=== PATIENT | female | born 1970 | race Caucasian/White ===

== ENCOUNTER 2024-09-01 08:16 | Outpatient (REF) | payer OTHER, SELFPAY ==
--- NOTE | ~2024-09-01 | XR_ITS ---
EXAMINATION: XR HAND 3 OR MORE VIEWS RIGHT HISTORY: M79.641 - Pain in right hand COMPARISON: There are no prior studies available for comparison. FINDINGS: Three views of the right hand are submitted. Osseous mineralization is normal. There is no fracture or dislocation. The joint spaces are preserved. The soft tissues are unremarkable. XR/XR hand RT min 3V IMPRESSION: Unremarkable examination of the right hand. Electronically signed by: Jai Miller MD 09/06/2024 10:39 AM MACIEL
--- OUTSIDE RECORDS SUMMARY | 2024-09-04 08:33 | XMS_ITS ---
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 referral Medications Medication SIG (Take, Route, Fr equency, Duration) Notes Start Date End Date Status Premarin 0.625 MG/GM 1 applicatorful Vag inal Once a day x 2 weeks, then twice weekly thereafter for 30 days 06/13/2024 Ac tive Social History Sex Assigned At : Social History Observation Description Sex Assigned At Female Encounters Encounter Location Date Provider Diagnosis [address] [place], [place] [phone] 05/29/2024 KIM GABAI Plan Of Treatment Medication Medication Name Sig Start Date Stop Date Notes Premarin 0.625 MG/GM 1 applicatorful Vag inal Once a day x 2 weeks, then twice weekly thereafter for 30 days 06/13/2024 Progress Notes * ENCISOEdenilsonOB:1970 ([age] yo F)Acc No.[id number]:05/29/2024 Patient:?Dottie ENCISO :1970???Age:53 Y???Sex:Female Address:[address] [place] [address], [address] * Refills? Start Premarin Cream, 0.625 MG/GM, Vaginal, 1, 1 applicatorful, Once a day x 2 weeks, then twice weekly thereafter, 30 days, Refills=2 Subjective: * Chief Complaints: * ???Lab results and TOOL DESIGN CHECKER refer ral * Medical History:? * Surgical History:? * Hospitalization/Major Diagno stic Procedure:? * Medications:? * Allergies:?treesLanolinno[Alfredo jauregui Verified] Objective: * Vitals:? * Physical Examination:? Assessment: Plan: * Treatment: * Procedure Codes:? * true * Date:? Generated for Yoli yadav/Max/eTransmitting on:?09/04/2024 08:33 AM EST
--- OUTSIDE RECORDS SUMMARY | 2024-09-04 08:33 | XMS_ITS ---
Author Organization [facility] Address [address] [place] [phone] Care Team Providers Care Realty Loan Specialist Name Role Phone KIM VELASQUEZ [phone] Allergies Allergen (clinical drug ingredient) Drug/Non Drug [...] Female Encounters Encounter Location Date Provider Diagnosis [address] [place], [place] [phone] 04/28/2024 KIMSA VELASQUEZ Plan Of Treatment Medication [...] * Edenilson ENCISOOB:1970 ([age] yo F)Acc No.[id number]:04/28/2024 Patient:?ENCISOAdan :1970???Age:53 Y???Sex:Female Address:[address] [place] [address] [place], [address] * Refills? Start Mometasone Furoate Ointment, 0.1 [...] true * Date:? Generated for Yoli yadav/Max/Larry on:?09/04/2024 08:33 AM EST
--- OUTSIDE RECORDS SUMMARY | 2024-09-04 08:33 | XMS_ITS ---
Author Organization [facility] Address [address] [phone] Care Team Providers Care Sales Closer Name Role Phone SARITA MARRERO Unavailable [phone] Allergies Allergen (clinical drug ingredient) Drug/Non Drug Allergy documented on EMR Reaction Allergy Type Onset Date Status trees (uncoded) Unknown Allergy Acti ve Lanolin Unknown Drug Allergy Active Results Component Value Reference Range Notes Urinalysis Reviewed date:05/29/2024 02:05:17 PM Interpretation:Normal Performing Lab: Notes/Report: Normal Leukocytes - Nitrates - Uro - Protein - pH 7.0 Blood - Spec [place] 1.010 Ketones - Bilirubin - Glucose - Wet Mount Reviewed date:05/29/2024 11:43:54 AM Interpretation:Normal Performing Lab: Notes/Report: Normal Clue Cells neg WBC neg Hyphae neg Trichomonas neg pH 5.5 JERSON Prep neg whiff Urine Culture, Routine-[id number] Reviewed date:05/31/2024 08:58:52 AM Interpretation:Negative Performing Lab:[facility], [address], [address], [place], Phone - [phone], Director - [facility] Notes/Report: Urine Culture, Routine Final report Result 1 No growth Hernan 6 Species Profile, N [id number] Reviewed date:06/05/2024 07:32:53 PM Interpretation:Negative Performing Lab:[facility], [address] [facility], [place], Phone - [phone], Director - [place]fa Notes/Report: Test(s) 304791-Sbfajva albicans, REVA; 907767-Kojbxef glabrata, REVA; 784472-H parapsilosis/tropicalis; 857864-Ocpcptn lusitaniae, REVA; 450786-Xrhgqdw krusei, REVA was developed and its performance characteristics determined by [facility]. It has not been cleared or approved by the Food and Drug Administration. Hernan albicans, REVA Negative Negative Hernan glabrata, REVA Negative Negative C parapsilosis/tropicalis Negative Negative Th is assay does not differentiate C. tropicalis and C. parapsilosis. Hernan lusitaniae, REVA Negative Negative Hernan krusei, REVA Negative Negative M genitalium REVA, Swab- 6 Reviewed date:05/31/2024 12:43:52 PM Interpretation:Negative Performing Lab:[facility] [place], [address] [place] [address] Avenue, [place], Phone - [phone], Director - [place] Notes/Report: Mycoplasma genitalium REVA [...] Status Risk Notes Problem Atrophy of vulva (458867933) Atrophy of vulva (N90.5) Active confirmed Encounters Encounter Location Date Provider Diagnosis [facility] [address] [place] [address] [place], [place] [phone] 05/29/2024 SARITA GABAI Urinary frequency R35.0 ; [...] but will strongly advise follow up with [facility] for further eval and management. Referral written, [...] relief until further eval can occur with [facility]WER MACHINE Need 2 out of 3 Sections from [...] but will strongly advise follow up with [facility] for further eval and management. Referral written, appt to be scheduled. Will call clt with results either way and discuss plan of care Atrophy of vulva Clt to continue with vagifem, can consider switching to topical cream instead. Awaiting lab results prior to changing dose. Encouraged clt to use vaginal lidocaine ointment for pain relief until further eval can occur with [facility] Progress Notes * Ada ENCISOCarolineOB:1970 ([age] yo F)Acc No.[id number]:05/29/2024 Progress Notes Patient:?Dottie ENCISO Provider:?Sarita Marrero NP :1970???Age:53 Y???Sex:Female D ate:05/29/2024 Address:[address] [place], [place] [id number] Subjective: * Chief Complaints: * ???Follow-upRecheck Exam [...] urination.?Denies?Painful urination.?Skin:?Denies?Itching.?Denies?Rash.?Denies?Skin lesion(s).? * Medical History:? 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 control:?Mirena intrauterine device.?Last mammogram date:?Sep 2018 at [facility], Appt scheduled: 10/15/17, 04/2015- BIRADS 2.?Last menstrual period:?02/20.?Last pap smear date:?02/2024- NIL/HPV positive (neg 16/18). Repeat cotest in 1 year02/09/19- NIL/HPV suskcrdx13/23/16- NIL/2012- NIL9/- NIL9/2008- NIL9/2007- NIL.?Menarche: ?Age of [...] but will strongly advise follow up with [facility] for further eval and management. Referral written, appt to be scheduled. Will call clt with results either way and discuss plan of care??2.?Urinary frequency?LAB: Urine Culture, Routine-[id number] (Collection Date & Time - 05/29/2024 11:33 AM) ?LAB: Urinalysis (Collection Date & Time - 05/29/2024)?Normal* ? Value Reference Range ?Leukocytes - * ?Nitrates - * ?Uro - * ?Protein - * ?pH 7.0 * ?Blood - * ?Spec [place] 1.010 * ?Ketones - * ?Bilirubin - [...] relief until further eval can occur with [facility]?? * Procedure Codes:?78945 Wet M [id number] Urine Dipstick * Billing Information: * Visit Code:? 46388 Existing - Low Complexity (IN USE). * Procedure Codes:? [address]95[address] [place]. [address] Urine Dipstick. * Sign off status: Completed true * Provider:?Sarita Marrero NP Date:? 024 Generated for [facility] vicenta/Max/Macoransmitting on:?09/04/2024 08:33 AM EST History and Physical Notes * [...]
--- OUTSIDE RECORDS SUMMARY | 2024-09-04 08:34 | XMS_ITS | Patient Health Record ---
Author Organization [facility] Address [address] [phone] Care Team Providers Care Whiting Can Worker Name Role Phone KIM VELASQUEZ Unavailable [phone] Allergies Allergen (clinical drug ingredient) Drug/Non Drug Allergy documented on EMR Reaction Allergy Type Onset Date Status trees (uncoded) Unknown Allergy Acti ve Lanolin Unknown Drug Allergy Active Results Component Value Reference Range Notes Urinalysis Reviewed date:05/29/2024 02:05:17 PM Interpretation:Normal Performing Lab: Notes/Report: Normal Leukocytes - Nitrates - Uro - Protein - pH 7.0 Blood - Spec Jewett 1.010 Ketones - Bilirubin - Glucose - Wet Mount Reviewed date:05/29/2024 11:43:54 AM Interpretation:Normal Performing Lab: Notes/Report: Normal Clue Cells neg WBC neg Hyphae neg Trichomonas neg pH 5.5 JERSON Prep neg whiff Urine Culture, Routine-[id number] Reviewed date:05/31/2024 08:58:52 AM Interpretation:Negative Performing Lab:[facility] [place], [address], [address], [place], Phone - [phone], Director - [facility] Notes/Report: Urine Culture, Routine Final report Result 1 No growth Hernan 6 Species Profile, N [id number] Reviewed date:06/05/2024 07:32:53 PM Interpretation:Negative Performing Lab:[facility] [place], [address] [facility], [place], Phone - [phone], Director - [place] Notes/Report: Test(s) 352022-Lahagaz albicans, REVA; 068634-Nkkutfo glabrata, REVA; 214406-F parapsilosis/tropicalis; 828092-Ylyklcg lusitaniae, REVA; 031202-Pmciewa krusei, REVA was developed and its performance characteristics determined by [employer]. It has not been cleared or approved by the Food and Drug Administration. Hernan albicans, REVA Negative Negative Hernan glabrata, REVA Negative Negative C parapsilosis/tropicalis Negative Negative Th is assay does not differentiate C. tropicalis and C. parapsilosis. Hernan lusitaniae, REVA Negative Negative Hernan krusei, REVA Negative Negative M genitalium REVA, Swab-[id number] 6 Reviewed date:05/31/2024 12:43:52 PM Interpretation:Negative Performing Lab:[facility] [place], [address] [place] [address], Phone - [phone], Director - [facility] Notes/Report: Mycoplasma genitalium REVA Negative Negative PDF Report Reviewed date:03/21/2024 09:05:13 AM Interpretation: Performing Lab:[facility] [place], [address], [address], [place], Phone - [phone], Director - [facility] Notes/Report: Clinical Information:[id number] IGP, Apt HPV,rfx 16/18,45-19 9344 Reviewed date:03/27/2024 11:59:26 AM Interpretation:NIL/HPV positive Performing Lab:[facility] [place], [address], [address], [place], Phone - [phone], Director - [facility] Notes/Report: Clinical Information:[id number] Clinical Information:[id number] DIAGNOSIS: NEGATIVE FOR IN TRAEPITHELIAL LESION OR MALIGNANCY. Specimen adequacy: Satisfactory for evaluation. Endocervical and/or squamous metaplastic cells (endocervical component) are present. Clinician provided ICD10: Z01.419 Z11.51 Performed by: Tia doran, [employer] (ASCP) . . 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 Problem Menopausal symptom (90069363) Menopausal symptoms (N95.1) Active confirmed Vital Signs Blood pressure diastolic 76 mm Hg 03/15/2024 Height 64 in 03/15/2024 Blood pressure systolic 110 mm Hg 03/15/2024 Weight 136.8 lbs 03/15/2024 BMI 23.48 kg/m2 03/15/2024 Encounters Encounter Location Date Provider Diagnosis [facility] [address] [place] [id number] 03/15/2024 KIM GABAI Encounter for gynecological examination (general) (routine) without abnormal findings Z01.419 ; Atrophy of vulva N90.5 ; Encounter for screening for infections with a predominantly sexual mode of transmission Z11.3 ; Encounter for screening for human papillomavirus (HPV) Z11.51 ; Unspecified symptoms and signs involving the genitourinary system R39.9 and Menopausal symptoms N95.1 [facility] [address] [place] [address] [id number] 05/29/2024 KIM GABAI Urinary frequency R3 5.0 ; Encounter for screening for other infectious and parasitic diseases Z11.8 ; Unspecified symptoms and signs involving the genitourinary system R39.9 and Atrophy of vulva N90.[address] [id number] 03/16/2024 KIM GABAI [facility] [address] [place] [address] [id number] 03/21/2024 KIM GABAI [facility] [address] [place] [address] [id number] 04/06/2024 KIM GABAI [facility] [address] [place] [address] [id number] 04/28/2024 KIM GABAI [facility] [address] [place] [address] [id number] 05/29/2024 KIM GABAI Assessments Encounter Date Diagnosis [...] but will strongly advise follow up with ENTRY LEVEL SALES ASSOCIATE for further eval and management. Referral written, [...] STI screening recommendations and available testing through [facility]. Testing ordered as noted per patient risks [...] relief until further eval can occur with ENTRY LEVEL SALES ASSOCIATE Need 2 out of 3 Sections from [...] Insured Coverage Start Date Coverage End Date [facility] [employer] [address] [address] [place], [place] [id number] Dottie Enciso Self - patient is the insured Medical (General) History Medical History History ICD Code Migraines- Occipital neuralgia VVC Meningioma incidentally diagnosed on MRI , surgery and radiation 2020 Abnormal PAP 2023 Surgical History Surgery Date(Month/Year) nerve decompression for migraines
--- OUTSIDE RECORDS SUMMARY | 2024-09-04 08:34 | XMS_ITS | Patient Health Record ---
Author Organization [facility] Address [address] [place] [address] Care Team Providers Care Fly Raiser Lockstitch Name Role Phone Jimmy Malagon Primary Care Provider Rogelio Niño Unavailable Unavailable Reason For Referral [...] Coverage End Date [place] [address] [place] [id number] Dottie Enciso Self - patient is the insured Medical (General) History Surgical History Surgery Date(Month/Year) The patient has had no prior surgeries The patient has had no prior surgeries 2017-08-17
== END 2024-09-01 08:17 | disposition home or self-care (01) ==
LOC: HO.HOSX 08:16
DX: M79.641 Pain in right hand (principal)
CPT/HCPCS: 73130; 99202

== ENCOUNTER 2024-09-01 10:09 | Outpatient (AMB) | payer OTHER, SELFPAY ==
--- NOTE | 2024-09-01 10:21 | A.OFFVIS_ITS ---
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 Patient reports pain on both the volar and dorsal side of the right hand that has been on going for a couple of months. Pain radiates to wrist occasionally, at her worse she reports sharp/stabbing pains. Patient has tried and failed Tylenol and Ibuprofen. 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 Patient reports pain on both the volar and dorsal side of the right hand that has been on going for a couple of months. Patient states pain is exacerbated by gripping things such as a golf club. Patient reports that this pain is primarily at the center of the palm of the hand. Pain radiates to wrist occasionally, at her worse she reports sharp/stabbing pains. Patient has tried and failed Tylenol and Ibuprofen. Denies any numbness or tingling in the digits of the right hand. Denies any tenderness to palpation in this area the height hand, and states that this pain is ?random? No other acute complaints or concerns at this time. 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 Neuro: Normal sensation of the tips of all digits of the right hand at this time Vascular: Cap refill brisk Pain: No tenderness to palpation anywhere on the right wrist or hand No pain with range of motion of the right hand or wrist in the office today ROM: Patient is able to make closed fist and extend all digits of the right hand fully Patient has full flexion and extension of the right wrist Skin: No lacerations or abrasions. General: No ecchymosis, erythema, or evidence of infection. Psych: Appears grossly normal Affect normal Attitude cooperative Results Reviewed Results Reviewed: X-rays obtained in the office today and independently reviewed by me, Shahriar Hoyt PA-C, demonstrate no fracture or acute bony abnormality of the right hand or wrist. Assessment & Plan Assessment & Plan (1) Right hand pain: Code(s): M79.641 - Pain in right hand Category: Medical Plan 1. Right hand pain Ongoing for approximately 2 months At this time, patient was referred to occupational therapy for range of motion and strengthening of the right hand Patient was amenable to this plan Patient was advised that if approximately 6-8 weeks after starting occupational therapy she is still experiencing this discomfort in her right hand, she should call us for further evaluation and discussion of potential further imaging or other treatment options Patient understands this is amenable to this plan Patient will follow-up in 6-8 weeks if she is still symptomatic for further evaluation, sooner with any acute concerns Orders: Orders XR hand RT min 3V Today M79.641 - Pain in right hand OT Evaluation and Treatment Today M79.641 - Pain in right hand Coding Level of Care Code New Pt Level 3 (40191) Diagnoses Right hand pain M79.641
--- OUTSIDE RECORDS SUMMARY | 2024-09-01 11:26 | XMS_ITS ---
Author Organization [facility] Address [address] [id number] Care Team Providers Care Support Dba Name Role Phone SARITA MARRERO Unavailable [phone] Allergies Allergen (clinical drug ingredient) Drug/Non Drug Allergy documented on EMR Reaction Allergy Type Onset Date Status trees (uncoded) Unknown Allergy Acti ve Lanolin Unknown Drug Allergy Active Results Component Value Reference Range Notes Urinalysis Reviewed date:05/29/2024 02:05:17 PM Interpretation:Normal Performing Lab: Notes/Report: Normal Leukocytes - Nitrates - Uro - Protein - pH 7.0 Blood - Spec Craig 1.010 Ketones - Bilirubin - Glucose - Wet Mount Reviewed date:05/29/2024 11:43:54 AM Interpretation:Normal Performing Lab: Notes/Report: Normal Clue Cells neg WBC neg Hyphae neg Trichomonas neg pH 5.5 JERSON Prep neg whiff Urine Culture, Routine-[id number] 7 Reviewed date:05/31/2024 08:58:52 AM Interpretation:Negative Performing Lab:[facility], [address], [address], [place], Phone - [phone], Director - [facility] Notes/Report: Urine Culture, Routine Final report Result 1 No growth Hernan 6 Species Profile, N [id number] Reviewed date:06/05/2024 07:32:53 PM Interpretation:Negative Performing Lab:[facility], [address] [facility], [place], Phone - [phone], Director - Josefa Notes/Report: Test(s) 991795-Eoeazla albicans, REVA; 947106-Eizjxeg glabrata, REVA; 329213-K parapsilosis/tropicalis; 833236-Znucgtf lusitaniae, REVA; 216722-Bzvrukn krusei, REVA was developed and its performance characteristics determined by [facility]. It has not been cleared or approved by the Food and Drug Administration. Hernan albicans, REVA Negative Negative Hernan glabrata, REVA Negative Negative C parapsilosis/tropicalis Negative Negative Th is assay does not differentiate C. tropicalis and C. parapsilosis. Hernan lusitaniae, REVA Negative Negative Hernan krusei, REVA Negative Negative M genitalium REVA, Swab- 6 Reviewed date:05/31/2024 12:43:52 PM Interpretation:Negative Performing Lab:[facility] [place], [address] [place] [address] Avenue, [place], Phone - [phone], Director - Josefa Notes/Report: Mycoplasma genitalium REVA Negative Negative REASON FOR VISIT Follow-up, Recheck Exam Medications Medication SIG (Take, Route, Frequency, Duration) Notes Start Date End Date Status Mometasone Furoate 0.1 % 1 application to affected area once a night x 4 weeks, then every other night x 4 weeks, then twice a week x 4 weeks twice a day Externally as indicated for 90 days 04/28/2024 Active Betamethasone Dipropionate 0.05 % 1 application to affected area once a night x 4 weeks, then every other night x 4 weeks, then twice a week x 4 weeks Externally twice a day for 90 days 04/06/2024 Not-Taking Clobetasol Propionate 0.05 % 1 application to affected area Externally once a night x 4 weeks, then every other night x 4 weeks, then twice a week x 4 weeks for 90 days 03/29/2024 Not-Taking Vagifem 10 MCG 1 tablet Vaginal Insert one tablet intravaginally daily for 2 weeks, followed by twice weekly for 90 days 03/15/2024 Active Liletta (52 MG) 18.6 MCG/DAY as directed Intrauterine 08/24/2023 Active Mirena Inserted 09/01/16 Not-Taking Social History Sex Assigned At : Social History Observation Description Sex Assigned At Female Problems Problem Type SNOMED Code ICD Code Onset Dates Problem Status W/U Status Risk Notes Problem Atrophy of vulva (910058115) Atrophy of vulva (N90.5) Active confirmed Encounters Encounter Location Date Provider Diagnosis [facility] [address] [place] [address] [place], [place] [phone] 05/29/2024 SARITA GABAI Urinary frequency R35.0 ; Encounter for screening for other infectious and parasitic diseases Z11.8 ; Unspecified symptoms and signs involving the genitourinary system R39.9 and Atrophy of vulva N90.5 Assessments Encounter Date Diagnosis (ICD Code) Assessment Notes Treatment Notes Treatment Clinical Notes Section Notes 05/29/2024 Urinary frequency (ICD-10 - R35.0) Reassured clt of normal UA, but will send urine culture to further evaluate based on symptoms Need 2 out of 3 Sections from A-C Section A) Problems (only need one from below) One stable chronic illness Section B) Data (at least one of the following categories in this section) Category 1: (Choose 2 of the following): Review of prior external notes Order unique tests Review test results (each unique test counts as one) Category 2: Assessment requiring an independent historian Section C) Risk Document low risk of morbidity/mort ality 05/29/2024 Encounter for screening for other infectious and parasitic diseases (ICD-10 - Z11.8) Reviewed PE and wet mount findings. Discussed case with Jackie Lacy Md to finalize plan of care. Will wait on results of hernan and mycoplasma, but will strongly advise follow up with COMPRESSED YEAST SUPERVISOR for further eval and management. Referral written, appt to be scheduled. Will call clt with results either way and discuss plan of care Need 2 out of 3 Sections from A-C Section A) Problems (only need one from below) One stable chronic illness Section B) Data (at least one of the following categories in this section) Category 1: (Choose 2 of the following): Review of prior external notes Order unique tests Review test results (each unique test counts as one) Category 2: Assessment requiring an independent historian Section C) Risk Document low risk of morbidity/mort ality 05/29/2024 Unspecified symptoms and signs involving the genitourinary system (ICD-10 - R39.9) Need 2 out of 3 Sections from A-C Section A) Problems (only need one from below) One stable chronic illness Section B) Data (at least one of the following categories in this section) Category 1: (Choose 2 of the following): Review of prior external notes Order unique tests Review test results (each unique test counts as one) Category 2: Assessment requiring an independent historian Section C) Risk Document low risk of morbidity/mort ality 05/29/2024 Atrophy of vulva (ICD-10 - N90.5) Clt to continue with vagifem, can consider switching to topical cream instead. Awaiting lab results prior to changing dose. Encouraged clt to use vaginal lidocaine ointment for pain relief until further eval can occur with COMPRESSED YEAST SUPERVISOR Need 2 out of 3 Sections from A-C Section A) Problems (only need one from below) One stable chronic illness Section B) Data (at least one of the following categories in this section) Category 1: (Choose 2 of the following): Review of prior external notes Order unique tests Review test results (each unique test counts as one) Category 2: Assessment requiring an independent historian Section C) Risk Document low risk of morbidity/mort ality 05/29/2024 Other Need 2 out of 3 Sections from A-C Section A) Problems (only need one from below) One stable chronic illness Section B) Data (at least one of the following categories in this section) Category 1: (Choose 2 of the following): Review of prior external notes Order unique tests Review test results (each unique test counts as one) Category 2: Assessment requiring an independent historian Section C) Risk Document low risk of morbidity/mort ality Plan Of Treatment Treatment Notes Assessment Notes Urinary frequency Reassured clt of nor mal UA, but will send urine culture to further evaluate based on symptoms Encounter for screening for other infectious and parasitic diseases Reviewed PE and wet mount findings. Discussed case with Jackie Lacy Md to finalize plan of care. Will wait on results of hernan and mycoplasma, but will strongly advise follow up with COMPRESSED YEAST SUPERVISOR for further eval and management. Referral written, appt to be scheduled. Will call clt with results either way and discuss plan of care Atrophy of vulva Clt to continue with vagifem, can consider switching to topical cream instead. Awaiting lab results prior to changing dose. Encouraged clt to use vaginal lidocaine ointment for pain relief until further eval can occur with COMPRESSED YEAST SUPERVISOR Progress Notes * Ada ENCISOCarolineOB:1970 ([age] yo F)Acc No.[id number]:05/29/2024 Progress Notes Patient:?Dottie ENCISO Provider:?Sarita Marrero NP :1970???Age:53 Y???Sex:Female D ate:05/29/2024 Address:[address] [place], [place] [id number] Subjective: * Chief Complaints: * ???Follow-upRecheck Exam * HPI: ???Visit Narrative:? Clt was given rx for corticosteroid to help alleviate dry patch and itching on vulva. Clt reports improvement of symptoms since starting mometasone 3-4 weeks ago. Reports ongoing vaginal irritation, rawness and discomfort despite starting vaginal estrogen suppository. Denies change in partner since last tested. ?Current form of control:?iud mirena.?Presenting Symptoms:?same sxs from last visit: vaginal dryness and mild discomfort after IC, despite use of daily vaginal moisturizer and lubricant with sex, some urinary frequencyas well.?LMP:?spotting.?Last date of UPI:?05/28/24.? * ROS:?General/Constitutional:?Denies?Chills.?Denies?Fatigue.?Denies?Fever.?Gastrointestinal:?Denies?Abdominal pain.?Vaginal/Breast/ Control FU:?Denies?Breast lump.?Denies?Breast pain.?Denies?Vaginal discharge/itching.?Genitourinary:?Unusual odor?denies.?Burning or irritation?denies.?Denies?Blood in urine.?Denies?Difficulty urinating.?Denies?Frequent urination.?Denies?Painful urination.?Skin:?Denies?Itching.?Denies?Rash.?Denies?Skin lesion(s).? * Medical History:? 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 control:?Mirena intrauterine device.?Last mammogram date:?Sep 2018 at [facility], Appt scheduled: 10/15/17, 04/2015- BIRADS 2.?Last menstrual period:?02/20.?Last pap smear date:?02/2024- NIL/HPV positive (neg 16/18). Repeat cotest in 1 year02/09/19- NIL/HPV aenanbyx44/23/16- NIL/2012- NIL9/- NIL9/2008- NIL9/2007- NIL.?Menarche: ?Age of menarche?15 ?Age of menarche?15 ???Menstruation: ?Time between periods:?irregular ?Time between periods:?irregular ???Periods:?irregualr due to iud.?Sexual activity:?currently sexually active, with men.?Sexually Transmitted Diseases (STDs):?Herpes simplex virus (HSV).?Unprotected sex in the last 5 days?:?yes.?Unprotected sex in the past 10 days?:?yes.? * OB History:?Total pregnancies:?1.?Total living children:?0.?(s):?1.? * Surgical History:?nerve deco mpression for migraines * Hospitalization/Major Diagno stic Procedure:?No Hospitalization History. * Family History:?Father: diag nosed with Cancer, HBP.? father has high blood pressure and prostate cancer. * Social History:?Food Access:?Food Access?The Client's current access to food is?Secure Food Access ???Housing:?Housing?The client's current living situation is:?stable housing ???Reproductive Life Plan:?Reproductive Life Plan?Do you want to have children??No ???Sexual History:?Sexual History?Sexual History Reviewed:?Partners, Practices, Protection/Past STIs, Prevention of ?Currently sexually active??Yes ?Sexually active with:?Men ?Number of male partners?1 ?Your sexual activities include:?vaginal intercourse ?Reviewed types of EC??No ?Number of partners in past 3 months:?1 ?Number of partners in past year:?1 ?What is the client's primary method to prevent at the end of their visit??IUD ???HIV Risk Assessment:?Additional Questions?Is an HIV Risk Assessment being conducted??No ???Relationships:?Relationships?Has the client experienced any of the following:?Client has never experienced harmful relationships denies ???Tobacco Use:?Tobacco Use?Do you/have you used tobacco??No ???Counseling Provided:?Counseling Provided?Please indicate the length of time, in minutes, that counseling was provided.?6 ?Counseling Was Provided By:?ariela * Medications:?TakingLiletta ( 52 MG) 18.6 MCG/DAY Intrauterine Device as directed Intrauterine Vagifem 10 MCG Tablet 1 tablet Vaginal Insert one tablet intravaginally daily for 2 weeks, followed by twice weekly Mometasone Furoate 0.1 % Ointment 1 application to affected area once a night x 4 weeks, then every other night x 4 weeks, then twice a week x 4 weeks twice a day Externally as indicated Taking Liletta (52 MG) 18.6 MCG/DAY Intrauterine Device as directed Intrauterine Taking Vagifem 10 MCG Tablet 1 tablet Vaginal Insert one tablet intravaginally daily for 2 weeks, followed by twice weekly Taking Mometasone Furoate 0.1 % Ointment 1 application to affected area once a night x 4 weeks, then every other night x 4 weeks, then twice a week x 4 weeks twice a day Externally as indicated Not-Taking/PRNClobetasol Propionate 0.05 % Ointment 1 application to affected area Externally once a night x 4 weeks, then every other night x 4 weeks, then twice a week x 4 weeks Betamethasone Dipropionate 0.05 % Ointment 1 application to affected area once a night x 4 weeks, then every other night x 4 weeks, then twice a week x 4 weeks Externally twice a day Dre , Notes to Pharmacist: Inserted 09/01/16Medication List reviewed and reconciled with the patientNot-Taking/PRN Clobetasol Propionate 0.05 % Ointment 1 application to affected area Externally once a night x 4 weeks, then every other night x 4 weeks, then twice a week x 4 weeks Not-Taking/PRN Betamethasone Dipropionate 0.05 % Ointment 1 application to affected area once a night x 4 weeks, then every other night x 4 weeks, then twice a week x 4 weeks Externally twice a day Not-Taking/PRN Dre , Notes to Pharmacist: Inserted 09/01/16Medication List reviewed and reconciled with the patient * Allergies:?treesLanolinno[Alfredo jauregui Verified] Objective: * Vitals:? * Examination: ???Gynecological: ?EXTERNAL GENITALIA:?Moderate erythema, tender to touch, fissure at posterior fourchette, introitus bleeding with speculum insertion. Improvement of questionable lichen patch on right labia majora..?URETHRAL MEATUS:?erythema.?URETHRA:?erythema.?BLADDER:?normal.?ANUS/PERINEUM:? normal.? Assessment: * Assessment: 1.?Encounter for screening f or other infectious and parasitic diseases - Z11.8 (Primary)???2.?Urinary frequency - R35.0???3.?Unspecified symptoms and signs involving the genitourinary system - R39.9???4.?Atrophy of vulva - N90.5??? Need 2 out of 3 Sections fro m A-C Section A) Problems (only need one from below) One stable chronic illness Section B) Data (at least one of the following categories in this section) Category 1: (Choose 2 of the following): Review of prior external notes Order unique tests Review test results (each unique test counts as one) Category 2: Assessment requiring an independent historian Section C) Risk Document low risk of morbidity/mortality Plan: * Treatment: ? Value Reference Range ?Clue Cells neg * ?WBC neg * ?Hyphae neg * ?Trichomonas neg * ?pH 5.5 * ?JERSON Prep neg whiff * SARITA MARRERO L 05/29/2024 11 :41:57 AM EDT > Notes: Reviewed PE and wet mount findings. Discussed case with Jackie Lacy Md to finalize plan of care. Will wait on results of hernan and mycoplasma, but will strongly advise follow up with COMPRESSED YEAST SUPERVISOR for further eval and management. Referral written, appt to be scheduled. Will call clt with results either way and discuss plan of care??2.?Urinary frequency?LAB: Urine Culture, Routine-[id number] (Collection Date & Time - 05/29/2024 11:33 AM) ?LAB: Urinalysis (Collection Date & Time - 05/29/2024)?Normal* ? Value Reference Range ?Leukocytes - * ?Nitrates - * ?Uro - * ?Protein - * ?pH 7.0 * ?Blood - * ?Spec Craig 1.010 * ?Ketones - * ?Bilirubin - * ?Glucose - * SARITA MARRERO L 05/29/2024 02 :03:19 PM EDT > Notes: Reassured clt of normal UA, but will send urine culture to further evaluate based on symptoms??3.?Atrophy of vulva? Notes: Clt to continue with vagifem, can consider switching to topical cream instead. Awaiting lab results prior to changing dose. Encouraged clt to use vaginal lidocaine ointment for pain relief until further eval can occur with COMPRESSED YEAST SUPERVISOR?? * Procedure Codes:?75478 Wet M [id number] Urine Dipstick * Billing Information: * Visit Code:? 20345 Existing - Low Complexity (IN USE). * Procedure Codes:? 54932 Wet Mount. 98813 Urine Dipstick. * Sign off status: Completed true * Provider:?Sarita Marrero NP Date:? 024 [facility]/Max/Macoransmitting on:?09/01/2024 11:25 AM EST History and Physical Notes * HPI (History of Present Illness) Category Sub-Category Detail Notes Category Not es Visit Narrative Current form of control: iud rafia alfred Presenting Symptoms: same sxs from last visit: vaginal dryness and mild discomfort after IC, despite use of daily vaginal moisturizer and lubricant with sex, some urinary frequencyas well LMP: spotting Last date of UPI: 05/28/24 Examination Category Sub-Category Detail Notes Category Not es Gynecological EXTERNAL GENITALIA: Moderate tai thema, tender to touch, fissure at posterior fourchette, introitus bleeding with speculum insertion. Improvement of questionable lichen patch on right labia majora. URETHRA: erythema URETHRAL MEATUS: erythema BLADDER: normal ANUS/PERINEUM: normal
--- OUTSIDE RECORDS SUMMARY | 2024-09-01 11:26 | XMS_ITS ---
Author Organization [facility] Address [address] [place] [phone] Care Team Providers Care Sewer Cleaner Name Role Phone KIM VELASQUEZ [phone] Allergies Allergen (clinical drug ingredient) Drug/Non Drug Allergy documented on EMR Reaction Allergy Type Onset Date Status trees (uncoded) Unknown Allergy Acti ve Lanolin Unknown Drug Allergy Active REASON FOR VISIT rx issue Medications Medication SIG (Take, Route, Frequency, Duration) Notes Start Date End Date Status Mometasone Furoate 0.1 % 1 application t o affected area once a night x 4 weeks, then every other night x 4 weeks, then twice a week x 4 weeks twice a day Externally as indicated for 90 days 04/28/2024 Active Social History Sex Assigned At : Social History Observation Description Sex Assigned At Female Encounters Encounter Location Date Provider Diagnosis [address] [place], [place] [phone] 04/28/2024 KIMSA VELASQUEZ Plan Of Treatment Medication Medication Name Sig Start Date Stop Date Notes Mometasone Furoate 0.1 % 1 application t o affected area once a night x 4 weeks, then every other night x 4 weeks, then twice a week x 4 weeks twice a day Externally as indicated for 90 days 04/28/2024 Progress Notes * Edenilson ENCISOOB:1970 ([age] yo F)Acc No.[id number]:04/28/2024 Patient:?ENCISOAdan :1970???Age:53 Y???Sex:Female Address:[address] [place] [address] [place], [address] * Refills? Start Mometasone Furoate Ointment, 0.1 %, Externally, 45 gm, 1 application to affected area once a night x 4 weeks, then every other night x 4 weeks, then twice a week x 4 weeks twice a day, as indicated, 90 days, Refills=1 Subjective: * Chief Complaints: * ???Rx issue * Medical History:? * Surgical History:? * Hospitalization/Major Diagno stic Procedure:? * Medications:? * Allergies:?treesLanolinno[Alfredo jauregui Verified] Objective: * Vitals:? * Physical Examination:? Assessment: Plan: * Treatment: * Procedure Codes:? * true * Date:? Generated for Yoli yadav/Max/Larry on:?09/01/2024 11:25 AM EST
--- OUTSIDE RECORDS SUMMARY | 2024-09-01 11:26 | XMS_ITS ---
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 referral Medications Medication SIG (Take, Route, Fr equency, Duration) Notes Start Date End Date Status Premarin 0.625 MG/GM 1 applicatorful Vag inal Once a day x 2 weeks, then twice weekly thereafter for 30 days 06/13/2024 Ac tive Social History Sex Assigned At : Social History Observation Description Sex Assigned At Female Encounters Encounter Location Date Provider Diagnosis [address] [place], [place] [phone] 05/29/2024 KIM GABAI Plan Of Treatment Medication Medication Name Sig Start Date Stop Date Notes Premarin 0.625 MG/GM 1 applicatorful Vag inal Once a day x 2 weeks, then twice weekly thereafter for 30 days 06/13/2024 Progress Notes * ENCISOEdenilsonOB:1970 ([age] yo F)Acc No.[id number]:05/29/2024 Patient:?Dottie ENCISO :1970???Age:53 Y???Sex:Female Address:[address] [place] [address], [address] * Refills? Start Premarin Cream, 0.625 MG/GM, Vaginal, 1, 1 applicatorful, Once a day x 2 weeks, then twice weekly thereafter, 30 days, Refills=2 Subjective: * Chief Complaints: * ???Lab results and MANAGER OF SUPPLY CHAIN refer ral * Medical History:? * Surgical History:? * Hospitalization/Major Diagno stic Procedure:? * Medications:? * Allergies:?treesLanolinno[Alfredo jauregui Verified] Objective: * Vitals:? * Physical Examination:? Assessment: Plan: * Treatment: * Procedure Codes:? * true * Date:? Generated for Yoli yadav/Max/eTransmitting on:?09/01/2024 11:25 AM EST
--- OUTSIDE RECORDS SUMMARY | 2024-09-01 11:26 | XMS_ITS | Patient Health Record ---
[facility] Address [address] [place] [address] Care Team Providers Care Confectionery Laboratory Manager Name Role Phone Jimmy Malagon Primary Care Provider [phone] Rogelio Niño Unavailable Unavailable Reason For Referral No Information Medications Medication SIG (Take, Route, Frequency, Duration) Notes Start Date End Date Status Excedrin Migraine 250-250-65 MG 2 tablets Orally prn migraine Active Ibuprofen 200 MG 3-4 tabs prn Orally once per day prn pain. Active DULoxetine HCl 30 MG 1 capsule Orally On ce a day for 1 week, then increase to 2 caps qam for 30 day(s) 05/02/2021 Active Plan Of Treatment No Information Insurance Providers Payer Name Payer Address Payer Phone Subscriber Number Group Number Insured Name Patient Relationship to Insured Coverage Start Date Coverage End Date [place] [address] [place] [id number] Dottie Enciso Self - patient is the insured Medical (General) History Surgical History Surgery Date(Month/Year) The patient has had no prior surgeries The patient has had no prior surgeries 2017-08-17
--- OUTSIDE RECORDS SUMMARY | 2024-09-01 11:26 | XMS_ITS | Patient Health Record ---
Author Organization [facility] Address [address] [phone] Care Team Providers Care Elevator Repairer Helper Name Role Phone KIM VELASQUEZ Unavailable [phone] Allergies Allergen (clinical drug ingredient) Drug/Non Drug Allergy documented on EMR Reaction Allergy Type Onset Date Status trees (uncoded) Unknown Allergy Acti ve Lanolin Unknown Drug Allergy Active Results Component Value Reference Range Notes Urinalysis Reviewed date:05/29/2024 02:05:17 PM Interpretation:Normal Performing Lab: Notes/Report: Normal Leukocytes - Nitrates - Uro - Protein - pH 7.0 Blood - Spec [place] 1.010 Ketones - Bilirubin - Glucose - Wet Mount Reviewed date:05/29/2024 11:43:54 AM Interpretation:Normal Performing Lab: Notes/Report: Normal Clue Cells neg WBC neg Hyphae neg Trichomonas neg pH 5.5 JERSON Prep neg whiff Urine Culture, Routine-[id number] Reviewed date:05/31/2024 08:58:52 AM Interpretation:Negative Performing Lab:[facility] [place], [address], [address], [place], Phone - [phone], Director - [facility] Notes/Report: Urine Culture, Routine Final report Result 1 No growth Hernan 6 Species Profile, N [id number] Reviewed date:06/05/2024 07:32:53 PM Interpretation:Negative Performing Lab:[facility], [address] [facility], [place], Phone - [phone], Director - [place] Notes/Report: Test(s) 572916-Ajhhwzm albicans, REVA; 657597-Imbvisz glabrata, REVA; 571064-L parapsilosis/tropicalis; 566200-Bsblifu lusitaniae, REVA; 265991-Bfgnuaw krusei, REVA was developed and its performance characteristics determined by [employer]. It has not been cleared or approved by the Food and Drug Administration. Hernan albicans, REVA Negative Negative Hernan glabrata, REVA Negative Negative C parapsilosis/tropicalis Negative Negative Th is assay does not differentiate C. tropicalis and C. parapsilosis. Hernan lusitaniae, REVA Negative Negative Hernan krusei, REVA Negative Negative M genitalium REVA, Swab-[id number] 6 Reviewed date:05/31/2024 12:43:52 PM Interpretation:Negative Performing Lab:[facility] [place], [address] [place] [address], Phone - [phone], Director - [facility] Notes/Report: Mycoplasma genitalium REVA Negative Negative PDF Report Reviewed date:03/21/2024 09:05:13 AM Interpretation: Performing Lab:[facility], [address], [address], [place], Phone - [phone], Director - [facility] Notes/Report: Clinical Information:[id number] IGP, Apt HPV,rfx 16/18,45-19 9344 Reviewed date:03/27/2024 11:59:26 AM Interpretation:NIL/HPV positive Performing Lab:[facility], [address], [address], [employer], Phone - [phone], Director - [facility] Notes/Report: Clinical Information:[id number] Clinical Information:[id number] DIAGNOSIS: NEGATIVE FOR IN TRAEPITHELIAL LESION OR MALIGNANCY. Specimen adequacy: Satisfactory for evaluation. Endocervical and/or squamous metaplastic cells (endocervical component) are present. Clinician provided ICD10: Z01.419 Z11.51 Performed by: Tia doran, Rectifying Attendant (ASCP) . . Note: The Pap smear is a screening test designed to aid in the detection of premalignant and malignant conditions of the uterine cervix. It is not a diagnostic procedure and should not be used as the sole means of detecting cervical cancer. Both false-positive and false-negative reports do occur. . Test Methodology: This liquid based ThinPrep(R) pap test was screened with the use of an image guided system. HPV Aptima Positive Negative This nucleic acid amplification test detects fourteen high-risk HPV types (16,18,31,33,35,39,45,51,52, 56,58,59,66,68) without differentiation. HPV Genotype 16 Negative Negative HPV Genotype 18,45 Negative Negative Chlamydia/GC Amplification-1 31683 Reviewed date:03/16/2024 05:20:40 PM Interpretation:Negative Performing Lab:[facility] [place], [address], [address], [place], Phone - [phone], Director - [facility] Notes/Report: Chlamydia trachomatis, REVA Negative Negative Neisseria gonorrhoeae, REVA Negative Negative Reason For Referral No Information Medications Medication SIG (Take, Route, Frequency, Duration) Notes Start Date End Date Status Vagifem 10 MCG 1 tablet Vaginal Insert one tablet intravaginally twice weekly for 90 days Active Premarin 0.625 MG/GM 1 applicatorful Vaginal Once a day x 2 weeks, then twice weekly thereafter for 30 days 06/13/2024 Active Mirena Inserted 09/01/16 Not-Taking Mometasone Furoate 0.1 % 1 application to [...] 4 weeks for 90 days 03/29/2024 Not-Taking Liletta (52 MG) 18.6 MCG/DAY as directed Intrauterine 08/24/2023 Active Social History Sex Assigned At : Social History Observation Description Sex Assigned At Female Problems Problem Type SNOMED Code ICD Code Onset Dates Problem Status W/U Status Risk Notes Problem Atrophy of vulva (964767392) Atrophy of vulva (N90.5) Active confirmed Problem Menopausal symptom (61543061) Menopausal symptoms (N95.1) Active confirmed Vital Signs Blood pressure diastolic 76 mm Hg 03/15/2024 Height 64 in 03/15/2024 Blood pressure systolic 110 mm Hg 03/15/2024 Weight 136.8 lbs 03/15/2024 BMI 23.48 kg/m2 03/15/2024 Encounters Encounter Location Date Provider Diagnosis [facility] [address] [place] [id number] 03/15/2024 KIM GABAI Encounter for gynecological examination (general) (routine) without abnormal findings Z01.419 ; Atrophy of vulva N90.5 ; Encounter for screening for infections with a predominantly sexual mode of transmission Z11.3 ; Encounter for screening for human papillomavirus (HPV) Z11.51 ; Unspecified symptoms and signs involving the genitourinary system R39.9 and Menopausal symptoms N95.1 [facility] [address] [place] [id number] 05/29/2024 KIM GABAI Urinary frequency R3 5.0 ; Encounter for screening for other infectious and parasitic diseases Z11.8 ; Unspecified symptoms and signs involving the genitourinary system R39.9 and Atrophy of vulva N90.[address] [id number] 03/16/2024 KIM GABAI [facility] [address] [place] [id number] 03/21/2024 KIM GABAI [facility] [address] [place] [id number] 04/06/2024 IKM GABAI [facility] [address] [place] [id number] 04/28/2024 KIM GABAI [facility] [address] [place] [id number] 05/29/2024 KIM GABAI Assessments Encounter Date Diagnosis (ICD Code) Assessment Notes Treatment Notes Treatment Clinical Notes Section Notes 03/15/2024 Atrophy of vulva (ICD-10 - N90.5) 03/15/2024 Encounter for gynecological examination (general) (routine) without abnormal findings (ICD-10 - Z01.419) Reviewed routine screening, safe sex and condom use. Aware of ASCCP guidelines and self breast awareness. Encouraged routine physical with PCP to have routine labs and screening performed. Discussed health maintenence including: healthy diet (encouraged increased fiber and decreased sodium, handouts on balanced diet and fiber given); breast self awareness and screening mammography (breast health handout and screening mammography referral given); purpose of pap test and ASCCP guidelines for normal paps; colonoscopy screening at age 50; importance of weight bearing and cardio exercise for bone and heart health. Anticipatory guidance given regarding menopause. Discussed importance of foreplay and use of personal lubricant with sex, condoms to prevent STIs, and ways to cope with hot flashes and night sweats. Return for annual exam in 1 year. 05/29/2024 Encounter for screening for other infectious and parasitic diseases (ICD-10 - Z11.8) Reviewed PE and wet mount findings. Discussed case with Jackie Lacy Md to finalize plan of care. Will wait on results of hernan and mycoplasma, but will strongly advise follow up with [facility] for further eval and management. Referral written, [...] Section C) Risk Document low risk of morbidity/mor tality 05/29/2024 Urinary frequency (ICD-10 - R35.0) Reassured [...] Section C) Risk Document low risk of morbidity/mor tality 05/29/2024 Unspecified symptoms and signs involving the [...] Section C) Risk Document low risk of morbidity/mor tality 03/15/2024 Encounter for screening for infections with a predominantly sexual mode of transmission (ICD-10 - Z11.3) Reviewed STI screening recommendations and available testing through [facility]. Testing ordered as noted per patient risks and preference. Encouraged safe sex practices. Advised to call for evaluation if any symptoms arise. Reviewed method of communicating results to patient. 03/15/2024 Encounter for screening for human papillomavirus (HPV) (ICD-10 - Z11.51) 05/29/2024 Atrophy of vulva (ICD-10 - N90.5) Clt to continue with vagifem, can consider switching to topical cream instead. Awaiting lab results prior to changing dose. Encouraged clt to use vaginal lidocaine ointment for pain relief until further eval can occur with [facility] Need 2 out of 3 Sections from [...] Section C) Risk Document low risk of morbidity/mor tality 03/15/2024 Unspecified symptoms and signs involving the genitourinary system (ICD-10 - R39.9) 03/15/2024 Menopausal symptoms (ICD-10 - N95.1) Discussed perimenopausal symptoms and treatment options for genitourinary syndrome. Discussed risk and benefits to vaginal estrogen. Rx sent at this time. Follow up in 1-2 months to ensure improvement of symptoms. Can consider punch biopsy of lesion on vulva if no resolution after starting vaginal estrogen therapy. Can continue to use daily moisturizer and lubricant with intercourse. 03/15/2024 Other 05/29/2024 Other Need 2 out of 3 [...] Section C) Risk Document low risk of morbidity/mor tality Plan Of Treatment No Information Insurance Providers Payer Name Payer Address Payer Phone Subscriber Number Group Number Insured Name Patient Relationship to Insured Coverage Start Date Coverage End Date [facility] [address] [address] [place], [place] [id number] Dottie Enciso Self - patient is the insured Medical (General) History Medical History History ICD Code Migraines- Occipital neuralgia VVC Meningioma incidentally diagnosed on MRI , surgery and radiation 2020 Abnormal PAP 2023 Surgical History Surgery Date(Month/Year) nerve decompression for migraines
== END 2024-09-01 10:41 | disposition home or self-care (01) ==
PROVIDERS: PCP Internal Medicine
DX: M79.641 Pain in right hand (principal)
CPT/HCPCS: 99203

== ENCOUNTER → 2024-09-01 10:16 | Outpatient (BNV) | payer OTHER, SELFPAY | PROVIDERS: Visit Provider Radiology Diagnostic Radiology | DX: M79.641 Pain in right hand (principal) | CPT/HCPCS: 73130 ==

== ENCOUNTER 2024-10-10 10:28 | Outpatient (RCR) | payer OTHER, SELFPAY ==
--- NOTE | 2024-09-12 13:28 | MHC.OT.OEV ---
[address] [phone] F: [phone] Occupational Therapy Evaluation Patient Name: Dottie Enciso Diagnosis: (R)hand pain and stiffness Date of Onset: Date of Surgery: Attending Provider: Shahriar Hoyt Prescribed Treatment: Follow Up Appointment: History of Current Condition: Patient is a 53 y/o (R)handed female who was referred to skilled OT for pain and stiffness of the (R)hand. Patient reports the pain is in the middle of the middle of the hand and dorsum of the thumb which radiates to the forearm which is intermittent. She reports 6/10 pain during movement and 0/10 at rest. It is painful with gripping, writing. Denies numbness/tingling. 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 She enjoys golfing and hiking. 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 golfing, hiking Living Situation, Family and/or Social Support: lives with partner Current Level of Function and Occupation Self Care, Employment, Leisure: min(A) ADLs/IADLs Sleep: (I) Driving: (I) Vision: Balance: Pain Assessment Pain Score: 6 Pain Scale Used: Pain Location and Description: Hand/wrist pain 6/10 pain which is initially a stabbing pain then turns to a dull ache 0/10 at rest Aggravating Factors: Alleviating Factors: Tylenol Skin and Soft Tissue Assessment Skin and Soft Tissue: Comments: Nerve assessment Ulnar Nerve: Median Nerve: Radial Nerve: Comments: Sensory Assessment Temperature: Light Touch: Proprioception: Vibration: Comments: Edema Assessment Upper Extremity: Lower Extremity: Comments: Dexterity Assessment Dexterity: Comments: Special Tests Comments: Finkelstine Test (+) AROM(PROM) Strength Cervical Cervical Flexion: Cervical Extension: Cervical Lateral Flexion: Cervical Rotation: Comments: Shoulder Flexion: Extension: Abduction: Internal Rotation: External Rotation: Comments: WFL Flexion: Extension: Abduction: Internal Rotation: External Rotation: Comments: WFL Elbow Flexion: Extension: Pronation: Supination: Comments: WFL Flexion: Extension: Pronation: Supination: Comments: WFL Wrist Flexion: 70* Extension: 64* Ulnar Deviation: 25* Radial Deviation: 35* Comments: Flexion: Extension: Ulnar Deviation: Radial Deviation: Comments: WFL Thumb Thumb CMC Flexion: Thumb MCP Flexion: Thumb IP Flexion: Radial Abduction: Palmar Abduction: [place] (Kapandji 0-10): Comments: WFL Digits Index MCP: PIP: DIP: Long MCP: PIP: DIP: Ring MCP: PIP: DIP: Small MCP: PIP: DIP: Comments: WFL Gross Grasp: (R)31lbs; (L)25lbs. Lateral Pinch: 8 lbs. Two-Point Pinch: 2.5lbs. Three-Jaw Abhinav: 4lbs. Comments: Patient Education Primary Language: Academic Department Chair Required: Current Knowledge: Teaching Method: Education Needs Identified on Evaluation: How did patient/family demonstrate learning? Barriers to Learning: Readiness for Learning: Who was educated? Comments: Plan of Care Assessment: Based on initial OT evaluation patient presents with pain and impaired strength. Provocative testing revealed (+) Finkelstine's. Quick DASH= 13.6 indicating patient's perceived UE impairment during self care tasks. Due to the documented impairments it is recommended that patient receive skilled OT intervention in order for patient to achieve her PLOF of (I). Thank your for your referral. STG Duration: 2 weeks Short Term Goals: patient will report 4/10 pain during self care tasks Patient will increase (R)archery equipment repairer strength to 35lbs. Patient will be (I) with thumb orthosis wear schedule LTG Duration: 4 weeks Feeder Driver Goals: Patient will be (I) with HEP Patient will report 0/10 pain Frequency and Duration: The patient will be seen 2x a week for 4 weeks Treatment Plan: Therapeutic Exercise Therapeutic Activity Home Exercise Program Splinting Patient Education Edema Control ADL Training Ultrasound NMES Iontophoresis Paraffin Fluidotherapy MHP Cold Packs Joint Mobilization Soft Tissue Mobilization Kinesiotaping Other (see comments) skilled OT eval and treat Electronically Signed By: Trista Hutchins OTR/L, CLT Reviewed/agree with student documentation: Therapist: Please sign and return to therapist, Thank you for your referral.
--- NOTE | 2024-10-12 13:22 | MHC.OT.DC ---
[address] [phone] F: [phone] Occupational Therapy Discharge Note Patient Name: Dottie Enciso Provider: Shahriar Hoyt Diagnosis: (R)hand pain and stiffness Date of Surgery: Date of Evaluation: 09/11/24 Date of Discharge: Treatments to Date: 6 Cancellations to Date: No Shows to Date: Discharge Status: Achieved Goals Improved Function Independent with HEP Discharge Summary: Patient is discharged from skilled OT as she achieved her maximal potential during therapy. At this time she reports a 1/10 pain, has increased her automatic vulcanizing operator strength and is (I) with her HEP. Patient was a pleasure to work with, thank you for your referral. Electronically Signed By: Trista Hutchins OTR/Ela, CLT Reviewed/agree with student documentation: Therapist: Please Sign and return to therapist, thank you for your referral.
== END 2024-10-12 14:33 | disposition home or self-care (01) ==
LOC: HO.OT 10:28
PROVIDERS: PCP Family Medicine
DX: M79.641 Pain in right hand (principal)
CPT/HCPCS: 97110; 97140; 97165

== ENCOUNTER 2024-10-23 09:17 | Outpatient (AMB) | payer OTHER, SELFPAY ==
--- NOTE | 2024-10-23 09:23 | A.OFFVIS_ITS ---
Vital Signs 10/23/24 09:28 Height 5 ft 4 in Weight 138 lb BMI 23.7 Intake Visit Reasons: OV- RT hand pain f/u Intake Note: Dottie is a 53 year old right hand dominant female who presents today for a follow up of her right hand pain. At her last visit in August, she was referred to Occupational Therapy. It was discussed that if her symptoms had not improved s/p OT then she would contact us for further evaluation and possible imaging. States she has completed O.T and has notice improvement. Reports her pain is better, she has mild discomfort with certain movements but doing well over all. Allergies No Known Allergies Allergy (Verified 10/23/24 09:27) HPI HPI OV- RT hand pain f/u: Details: Dottie is a 53 year old right hand dominant female who presents today for a follow up of her right hand pain. At her last visit in August, she was referred to Occupational Therapy. It was discussed that if her symptoms had not improved s/p OT then she would contact us for further evaluation and possible imaging. States she has completed O.T and has notice improvement. Reports her pain is better, she has mild discomfort with certain movements but doing well over all. The patient does inquire if we see patients for neck pain, as she has had significant issues with her neck for approximately 20 years and would like to get another opinion this. No other acute complaints or concerns at this time. 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 Neuro: Normal sensation of the tips of all digits of the right hand at this time Vascular: Cap refill brisk Pain: No tenderness to palpation anywhere on the right wrist or hand No pain with range of motion of the right hand or wrist in the office today ROM: Patient is able to make closed fist and extend all digits of the right hand fully Patient has full flexion and extension of the right wrist Skin: No lacerations or abrasions. General: No ecchymosis, erythema, or evidence of infection. Psych: Appears grossly normal Affect normal Attitude cooperative Assessment & Plan Assessment & Plan (1) Right hand pain: Code(s): M79.641 - Pain in right hand Category: Medical Plan 1. Right hand pain Ongoing for approximately 2 months At this time, patient is informed that she is doing very well, and then she should finish her current course of occupational therapy Patient was informed that she will not require any further acute follow-up with us, as she is doing very well Patient expresses that she has been having some issues with neck pain, for which she has seen pain management with minimal help Patient was and expresses an interest in being seen by someone in our office for this Patient was offered a referral to Dr. Umair Martin of 4 further assessment of her neck pain Patient was amenable to this plan Patient will follow-up for next available appointment with Dr. Block for neck pain, sooner with any acute concerns Coding Level of Care Code Est Pt Level 3 (12624) Diagnoses Right hand pain M79.641
[2024-10-23 09:28] VITALS: BMI 23.7
--- OUTSIDE RECORDS SUMMARY | 2024-10-23 09:57 | XMS_ITS ---
Author Organization [facility] Address [address] [place] [phone] Care Team Providers Care Pamphlet Distributor Name Role Phone KIM VELASQUEZ Unavailable [phone] REASON FOR VISIT ECOSYSTEM ECOLOGY PROFESSOR report and follow up Social History Sex Assigned At : Social History Observation Description Sex Assigned At Female Encounters Encounter Location Date Provider Diagnosis [facility] [address] [place] [address] [place] [address] [place], [place] [phone] 09/11/2024 KIMDOE VELASQUEZ Plan Of Treatment No Information Progress Notes * Edenilson ENCISOOB:1970 (7 1 yo F)Acc No.[id number]:09/11/2024 Patient:?Ada ENCISOn :1970???Age:53 Y???Sex:Female Address:[address] [place] [address], [address] * true * Date:? Generated for Dereki vicenta/Max/eTransmitting on:?10/23/2024 09:57 AM EST
--- OUTSIDE RECORDS SUMMARY | 2024-10-23 09:58 | XMS_ITS | Clinical Summary ---
Author Organization [address] Address [address] [place] [phone] Phone Care Team Providers Care Adjunct Professor Of U.S. History Name Role Phone Mark Carmona MD Primary Care Provider [phone] Allergies No known active allergies Medications estrogens, conjugated (PREMARIN VAGL) Place vaginally. 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 Refrain from intercourse for now. Assessment & Plan (08/08/2024 9:32 AM EST): Resolved with treatment of atrophy and improved lubrication with coconut oil. Vulvar atrophy 06/26/2024 Overview (06/30/2024): Last Assessment & Plan: Continue Premarin cream, but use with finger MWF instead of applicator. Assessment & Plan (08/08/2024 9:33 AM EST): Improved with use of Premarin cream. She will continue with MWF application. Not sure if she will obtain routine Farm Adviser care here or return to [facility]. If she desires to come here, she will call to make her appt in the spring. Vulvar burning 06/26/2024 Overview (06/30/2024): Last Assessment & Plan: I explained to Dottie that I do believe there is some kind of vulvar dermatotis present, whether it be psoriasis, LS or LP. I recommend a biopsy, but would recommend doing so after being off topical steroid for two weeks. Since she used it two days ago, would be concerned that her biopsy would not be fruitful if we did it today. She agreed. She will stop mometasone, use coconut oil, soak and seal and follow C guidelines, as well as treat for possible cutaneous candidiasis, and return for vulvar biopsy in 2 weeks. 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 (Primary Dx); Vulvar atrophy from Last 3 Months Surgical History Surgery Date Site/Laterality Comments BRAIN SURGERY removal of meningioma Medical History Medical History Date Comments Patient denies medical problems Family History Medical History Relation Name Comments Prostate cancer Father Skin cancer Father Breast cancer Neg Hx Colon cancer Neg Hx Ovarian cancer Neg Hx Pancreatic cancer Neg Hx Uterine cancer Neg Hx Relation Name Status Comments Father Social History Tobacco Use Types Packs/Day Years Used Date Smoking Tobacco: Never Smokeless Tobacco: Never Tobacco Cessation:Counseling Given: Not Answered Alcohol Use Standard Drinks/Week Comments Yes 0 (1 standard drink = 0.6 oz pur e alcohol) occasionally Housing Instability Answer Date Recorde d Are you worried that in the next 2 months you may not have stable housing? No 07/07/2024 Food Access & Nutrition Answer Date Rec orded Do you have access to a vari ety of food including fruits and vegetables? Yes 07/07/2024 Access to Healthcare Answer Date Record ed Within the last 3 months, ho w many times did you visit the emergency department for your medical care? 0 07/07/2024 Health Literacy Answer Date Recorded How often do you need to hav e someone help you when you read instructions, pamphlets, or other written material from your doctor or pharmacy? Never 07/07/2024 Caregiver: How often do you need to have someone help you when you read instructions, pamphlets, or other written material from your doctor or pharmacy? Not on file 07/07/2024 Financial Risk Answer Date Recorded How hard is it for you to pa y for the very basics like food, housing, medical care, and air conditioning / heating? Not very hard 07/07/2024 Transportation Answer Date Recorded Has the lack of transportati on kept you from meetings, work, or from getting things needed for daily living? No Has the lack of transportati on kept you from medical appointments or from getting medications? No 07/07/2024 Social Isolation Answer Date Recorded How often do you feel lonely or isolated from th ose around you? Rarely 07/07/2024 Food Risk Answer Date Recorded Within the past 12 months we worried whether our food would run out before we got money to buy more. Never true 07/07/2024 Within the past 12 months th e food we bought just didn't last and we didn't have money to get more. Never true 07/07/2024 Dependent Care Answer Date Recorded Do you need help finding or paying for care for your loved ones. For example, childrens club attendant or elderly care for an older adult? No 07/07/2024 Education Answer Date Recorded Do you think completing more education or training, like finishing a GED, going to college, or learning a trade, would be helpful for you? No 07/07/2024 Employment and Income Answer Date Recor ded During the last four weeks, have you been actively looking for work? No 07/07/2024 Living Situation Answer Date Recorded What is your living situation? 1 09/06/2023 Comments No Sex and Gender Information Value Date Recorded Sex Assigned at Not on file Legal Sex Female 12:28 AM EST Gender Identity Not on file Sexual Orientation Not on file Obstetrics History Para Term AB IAB SAB Ectopic Multiple Livin g Live Births 0 0 0 0 0 0 0 0 0 0 0 Last Filed Vital Signs Vital Sign Reading Time Taken Comments Blood Pressure 110/70 08/08/2024 9:16 AM EST Pulse 68 08/08/2024 9:16 AM EST Temperature - - Respiratory Rate 16 08/08/2024 9:16 AM EST Oxygen Saturation - - Inhaled Oxygen Concentration - - Weight 62.7 kg (138 lb 3.2 oz) 08/08/2024 9:16 A M EST Height 162.6 cm (5' 4 ) 08/08/2024 9:16 AM EST Body Mass Index 23.72 08/08/2024 9:16 AM EST Plan of Treatment Upcoming Encounters Date Type Department Care Team (Late st Contact Info) Description 11/16/2024 1:15 PM EDT Office Visit Adult Medicine [address] [phone] Samia Sibley PA [address] [place] [address] Health Maintenance Due Date Last Done Comments Breast Cancer Screening 1972 DTaP,Tdap,and Td Vaccines (1 - Tdap) 11/24/1991 Cervical Cancer Screening: Pap Smear 1993 Pneumococcal Vaccine: 50+ Years (1 of 1 - PCV) 2022 Hepatitis B Vaccines (2 of 2 - CpG 2-dose series) 03/07/2024 02/08/2024 COVID-19 Vaccine (5 - season) 2024 02/08/2024, 08/21/2021, 01/14/2021, Additional history exists Influenza Vaccine (#1) 2024 Colorectal Cancer Screening: Colonoscopy 06/06/2024 HIV Screening 06/06/2024 Hepatitis C Screening 06/06/2024 Social Influencers of Health Screening 07/07/2025 07/07/2024 Depression Screening 08/29/2025 08/29/2024 Zoster Vaccines Completed 02/02/2024, 01/04/2023 HIB Vaccines Aged Out No longer eligi ble based on patient's age to complete this topic HPV Vaccines Aged Out No longer eligi ble based on patient's age to complete this topic Hepatitis A Vaccines Aged Out No long er eligible based on patient's age to complete this topic IPV Vaccines Aged Out No longer eligi ble based on patient's age to complete this topic MMR Vaccines Aged Out No longer eligi ble based on patient's age to complete this topic Meningococcal ACWY Vaccine Aged Out N o longer eligible based on patient's age to complete this topic Meningococcal B Vacine Aged Out No lo nger eligible based on patient's age to complete this topic Pneumococcal Vaccine: Pediatrics (0 to 5 Years) and At-Risk Patients (6 to 64 Years) Aged Out No longer eligible based on patient's age to complete this topic RSV Immunization Patients Under 20 months Aged Out No longer eligible based on patient's age to complete this topic Varicella Vaccines Aged Out No longer eligible based on patient's age to complete this topic Insurance [facility] [place] [address] Care Teams Adjunct Professor Of U.S. History Relationship Specialty Start Date End Date Mark Carmona MD [address] [place] [address] [place] [id number] PCP - General 06/26/24
== END 2024-10-23 09:34 | disposition home or self-care (01) ==
PROVIDERS: PCP Family Medicine
DX: M79.641 Pain in right hand (principal)
CPT/HCPCS: 99213

== ENCOUNTER → 2024-10-23 09:17 | Outpatient (BNVA) | payer OTHER, SELFPAY | PROVIDERS: PCP Family Medicine | DX: M79.641 Pain in right hand (principal) | CPT/HCPCS: 99212 ==

== ENCOUNTER 2025-06-07 09:14 | Outpatient (REF) | payer OTHER, SELFPAY ==
--- NOTE | ~2025-06-07 | XR_ITS ---
EXAMINATION: XR CERVICAL SPINE CLINICAL INFORMATION: M54.2 - Cervicalgia COMPARISON: None available. TECHNIQUE: 3 views of the cervical spine were obtained. FINDINGS: There is mild reversal of the normal cervical lordosis. No fractures are identified. There is no prevertebral soft tissue swelling. C3-4 and C4-5 demonstrates mild disc space narrowing and posterior osteophytes. XR/XR cervical spine 3V IMPRESSION: There is mild reversal of cervical lordosis. This can be related to degenerative changes, positioning, muscle spasm, or posterior soft tissue injury. Electronically signed by: Sunil Romero MD 06/07/2025 10:44 AM EDT
== END 2025-06-07 09:15 | disposition home or self-care (01) ==
LOC: HO.HOSX 09:14
PROVIDERS: PCP Family Medicine; Visit Provider Physical Medicine & Rehabilitation
DX: M47.812 Spondylosis without myelopathy or radiculopathy, cervical region (principal); M54.81 Occipital neuralgia; M79.18 Myalgia, other site
CPT/HCPCS: 72040; 99202

== ENCOUNTER 2025-06-07 09:14 | Outpatient (AMB) | payer MEDICAID, SELFPAY ==
--- NOTE | 2025-06-07 09:19 | MHC.OFFVIS ---
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 Patient was referred by AA 10/23/24. At today's visit she states that for the past 20 years she has been living with this pain in her neck. She states that the neck pain radiates into both sides of the neck that radiate into the shoulders, shoulder blades. Patient reports that the pain is constant with a dullache/throbbing sensation. She states she has tried injections, physical therapy, at home exercises, medications. Patient has had MRIs, CT scans, and x rays. She then added that she has tried different medications but no relief and would like to stay away from taking anything. She would also like to add that she had a Nerve Decompression surgery 8 years ago,today. Allergies No Known Allergies Allergy (Verified 06/07/25 09:26) Medication List - Last Reconciled 06/07/25 by Natalia Quintanilla MD No Known Home Meds HPI Comments Details: Neck injections, possibly trigger point injections, by [facility], around 5 years ago. Last MRI more than 2 years ago. History of occipital neuralgia. 8 years ago, occipital nerve decompression surgery at [facility] [place]. Was painfree for awhile but not coming back. Had botox for migraines prior to that surgery. Was painfree for awhile but now coming back, gradually, at least 2 months. Occipital area, posterior neck, trapezius and shoulder blades. Not to arms. No weakness, no change gait, no bladder/bowel changes. Could have frontal headaches especially with stress. Used to go to [facility] in [place]. 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 S/p removal at [facility] [place]. Did well after. 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 Patient was appropriately conversant and oriented. Good historian. MSK: Inspection reveals appropriate head and neck positioning. Tenderness over bilateral upper trapezius with trigger points. Tenderness over cervical paraspinals and splenius. No tenderness over SCM. No tenderness over occipital. Cervical ROM was full. Spurling's sign negative. Bilateral shoulder, elbow and wrist ROM WNL. No ligamentous laxity or crepitance. No increased effusion. Strength is 5/5 in all muscle groups tested. No increased tone noted. Neurological: Neurologic examination of the upper and lower extremities was nonfocal with intact sensation, muscle stretch reflexes and without focal motor deficits . Bartholomew?s negative bilaterally. Babinski was down going bilaterally. Clonus was negative. Gait is non-antalgic without loss of balance. Vital Signs: BMI result Body Mass Index 23.2 Results Reviewed Results Reviewed: Ordering Physician: Shahriar Hoyt Date of Service: 09/01/24 Procedure(s): XR hand RT min 3V Accession Number(s): [id number] cc: Shahriar Hoyt~ EXAMINATION: XR HAND 3 OR MORE VIEWS RIGHT HISTORY: M79.641 - Pain in right hand COMPARISON: There are no prior studies available for comparison. FINDINGS: Three views of the right hand are submitted. Osseous mineralization is normal. There is no fracture or dislocation. The joint spaces are preserved. The soft tissues are unremarkable. XR/XR hand RT min 3V IMPRESSION: Unremarkable examination of the right hand. Assessment & Plan Assessment & Plan (1) Myofascial pain: Code(s): M79.18 - Myalgia, other site Category: Medical (2) Occipital neuralgia: Code(s): M54.81 - Occipital neuralgia Category: Medical Qualifiers: Laterality: bilateral Qualified Code(s): M54.81 - Occipital neuralgia (3) Cervical facet syndrome: Code(s): M47.812 - Spondylosis without myelopathy or radiculopathy, cervical region Category: Medical Plan Primary diagnosis is myofascial pain on upper trapezius and cervical paraspinals based on exam today. She does have history of occipital neuralgia but it does not appear to be active at this time, and not the cause of her pain. Lower on differential is cervical facet syndrome, discussed how this could be contributory. Sending patient for cervical x-ray to rule out cervical facet arthritis. Our 1st step is to trial trigger point injections. We will schedule a series of, also considering if we should do it under EMG guidance so we could do the splenius muscles. Patient eager to proceed. If does not relieve her pain, then she will contact providers at [facility] [place] [place] for occipital neuralgia. We briefly discussed cervical facet injections under pain management. Only if above 2 does not help with the pain. Assessment and plan discussed with patient, and patient was agreeable. All questions were answered thoroughly. Natalia Quintanilla MD, ELOISA Board Certified, [place] Board of Physical Medicine and Rehabilitation (ABPMR) Board Certified, [place] Board of Electrodiagnostic Medicine (ABEM) Orders: Orders XR cervical spine 3V Today M54.2 - Cervicalgia Coding Level of Care Code New Pt Level 4 (27355) Diagnoses Myofascial pain M79.18 Bilateral occipital neuralgia M54.81 Laterality: bilateral Cervical facet syndrome M47.812
[2025-06-07 09:26] VITALS: BMI 23.2
== END 2025-06-07 11:04 | disposition home or self-care (01) ==
PROVIDERS: PCP Family Medicine; Visit Provider Physical Medicine & Rehabilitation
DX: M79.18 Myalgia, other site (principal); M54.81 Occipital neuralgia; M47.812 Spondylosis without myelopathy or radiculopathy, cervical region
CPT/HCPCS: 99204

== ENCOUNTER → 2025-06-07 10:09 | Outpatient (BNV) | payer OTHER, SELFPAY | PROVIDERS: PCP Family Medicine; Visit Provider Radiology Diagnostic Radiology | DX: M54.2 Cervicalgia (principal) | CPT/HCPCS: 72040 ==

== ENCOUNTER 2025-06-15 08:59 | Outpatient (AMB) | payer OTHER, SELFPAY ==
--- NOTE | 2025-06-15 09:05 | A.OFFVIS_ITS ---
Intake Visit Reasons: INJ- Trigger point Inj #1 Intake Note: Dottie is a 54 year old female who presents today for a upper trapezius Trigger Point Injection #1. At today's visit she states no changes since last visit. 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 Consent obtained. One trigger point palpated on right upper trapezius, 1 on left. Area cleansed with Betadine. Needling performed with gauge 27 needle, subsequently injecting 1 ml of 2% Lidocaine on each site, total of 2 mL. Patient tolerated procedure well. Post-injection instructions given. 95430-Irxhyib Point Injection 1 or 2 sites All charges added?: Procedure code (CPT) selection complete Office Meds lidocaine (PF) 20 mg/mL (2 %) injection solution Performing Provider: Natalia Quintanilla MD [place] [facility] [facility] [place] [facility] Documented (not given) by: Natalia Quintanilla MD on 06/15/25 09:43 Dose Route Admin Location Dispensed Lot Number Expiration Date [employer] 40 mg subcut mL Total Dispensed Waste n/a n/a Assessment & Plan Assessment & Plan (1) Myofascial pain: Code(s): M79.18 - Myalgia, other site Category: Medical Plan Primary diagnosis is myofascial pain on upper trapezius and cervical paraspinals. Tolerated procedure well today. Assessment and plan discussed with patient, and patient was agreeable. All questions were answered thoroughly. Natalia Quintanilla MD, ELOISA Board Certified, [place] Board of Physical Medicine and Rehabilitation (ABPMR) Board Certified, [place] Board of Electrodiagnostic Medicine (ABEM) Orders: Orders AMB Trigger Point Injection Today M79.18 - Myalgia, other site Medications: New lidocaine (PF) 40 mg (2 mL) subcut ONCE 2 mL 0RF M79.18 - Myalgia, other site Coding Level of Care Code Procedure Only Diagnoses Myofascial pain M79.18 CPT Codes Therapeutic Injection - Ther Injection 1: 45061-Easwnve Point Injection 1 or 2 sites ([id number])
--- OUTSIDE RECORDS SUMMARY | 2025-06-15 09:37 | XMS_ITS | Encounter Summary ---
Author Organization [facility] Address [address] [place] [address] Phone Care Team Providers Care Game Developer Name Role Phone Rogelio Niño MD Primary Care Provider + Sebastián Parra MD Unavailable [phone] Leah Doyle MD Unavailable Yobany Castro MD Primary Care Pr ovider Vanessa Carvajal JAVA CONSULTANT Unavailable [phone] Encounter Details Date Type Department Care Team (Late st Contact Info) Description 11/21/2019 Procedure Pass MRI, [facility] - [address], [address] [place] [address] Social History Tobacco Use Types Packs/Day Years Used Date Smoking Tobacco: Never Smokeless Tobacco: Never Alcohol Use Standard Drinks/Week Comments Yes 0 (1 standard drink = 0.6 oz pur e alcohol) rare Comments No Sex and Gender Information Value Date Recorded Sex Assigned at Female 09/26/2019 10:12 AM EST Legal Sex Female 5:25 PM EST Gender Identity Female 09/26/2019 10:12 AM EST Sexual Orientation Straight 09/26/2019 10 :12 AM EST 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 Not on file Not on file documented as of this encounter Plan of Treatment Not on file documented as of this encounter Visit Diagnoses Not on filedocumented in this encounter Care Teams Game Developer Relationship Specialty Start Date End Date Rogelio iNño MD [address] [place] [address] [email or web address] PCP - General Internal Medicine 06/10/18 09/04/24 Yobany Castro MD [address] [place], [place] [id number] [address] PCP - General Family Medicine 09/05/24 Sebastián Parra MD [address] [place] [address] [address] [place] [address] [email or web address] 11/19/19 Leah Doyle MD [address] [place], [place] [id number] [address] [email or web address] Radiation Oncology 11/19/19 Vanessa Carvajal FNP [address] [place] [id number] [email or web address] Nurse Practitioner Nurse Practitioner 12/08/24 documented as of this encounter Additional Source Comments The information contained in this document represents components of the legal health record. It is not the complete legal health record.[facility]
--- OUTSIDE RECORDS SUMMARY | 2025-06-15 09:37 | XMS_ITS | Patient Health Record ---
Author Organization [facility] Address [address] [place] [address] Care Team Providers Care Nut Sheller Name Role Phone SARITA MARRERO Unavailable [phone] Allergies Allergen (clinical drug ingredient) Drug/Non Drug Allergy documented on EMR Reaction Allergy Type Onset Date Status trees (uncoded) Unknown Allergy Acti ve Lanolin Unknown Drug Allergy Active Results Component Value Reference Range Flag Notes IGP, Apt HPV,rfx 16/18,45-19 9344 Reviewed date:05/04/2025 08:26:06 AM Interpretation:ASCUS/HPV positive Performing Lab:[facility] [place], [address] [place] [address], Phone - [phone], Director - [facility] Notes/Report: No. of containers..01 ThinPrep Vial Clinical Information:[id number] No. of containers..01 ThinPrep Vial Clinical Information:[id number] DIAGNOSIS: A EPITHELIAL CELL ABNORMALITY. ATYPICAL SQUAMOUS CELLS OF UNDETERMINED SIGNIFICANCE (ASC-US). Specimen adequacy: Satisfactory for evaluation. Endocervical and/or squamous metaplastic cells (endocervical component) are present. Clinician provided ICD10: Z01.419 Z11.51 Performed by: Tom razo, Edge Grinder (ASC) Electronically signed by: Dana Lang MD, Pathologist . . Pathologist provided ICD10: R87.610 Note: The Pap smear is a screening test designed to aid in the detection of premalignant and malignant conditions of the uterine cervix. It is not a diagnostic procedure and should not be used as the sole means of detecting . cervical cancer. Both false-positive and false-negative reports do occur. Test Methodology: This liquid based ThinPrep(R) pap test was screened with the use of an image guided system. HPV Aptima Positive Negative A This nucleic acid amplification test detects fourteen high-risk HPV types (16,18,31,33,35,39,45,51,52 ,56,58,59,66,68) without differentiation. HPV Genotype 16 Negative Negative HPV Genotype 18,45 Negative Negative PDF Report Reviewed date:05/03/2025 08:57:20 AM Interpretation: Performing Lab:[facility] [place], [address] [place] [address], Phone - [phone], Director - [facility] Notes/Report: Clinical Information:[id number] No. of containers..01 ThinPrep Vial Reason For Referral Reason Colpo referral Diagnosis 1 Pap Smear - Unspecif ied Abnormal findings (R87.619) Referral Organization [facility] Referring Provider First Name SARITA Referring Provider Last Name EVA Referring Provider Speciality Nurse Prac titioner Referred Provider Specialty Cash Poster General Notes 54 year old AFAB per son with most recent PAP 03/2025- ASCUS/HPV positive (negative 16/18). Due for colpo as per ASCCP guidelines. Please schedule accordingly. See below for previous PAP results. Thank you, Sarita Marrero IT SECURITY SPECIALIST, 02/2024- NIL/HPV positive (neg 16/18). Due for repeat cotest in 1 year, 02/09/19- NIL/HPV negative, 08/21/16- NIL, 12/2012- NIL, 05/18/2011- NIL, 04/2009- NIL, 04/2008- NIL Clinical Notes Rita Arguelles 2024 01:26:58 PM EDT > referral printed and to be faxed Referral Priority Routine Medications Medication SIG (Take, Route, Frequency, Duration) Notes Start Date End Date Status Liletta (52 MG) 18.6 MCG/DAY Intrauterine Device as directed Intrauterine 08/24/2023 Active Clobetasol Propionate 0.05 % Ointment 1 application to affected area Externally once a night x 4 weeks, then every other night x 4 weeks, then twice a week x 4 weeks; Duration: 90 days 03/29/2024 Not-Taking/P RN Betamethasone Dipropionate 0.05 % Ointment 1 application to affected area once a night x 4 weeks, then every other night x 4 weeks, then twice a week x 4 weeks Externally twice a day; Duration: 90 days 04/06/2024 Not-Taking/P RN Mirena Inserted 09/01/16 Not-Taking/P RN Social History Sex Assigned At : Social History Observation Description Sex Assigned At Female Social History HIV Risk Assessment Social Info Question Answer Notes Additional Questions Is an HIV Risk Asse ssment being conducted? No Reproductive Life Plan: Social Info Question Answer Notes Reproductive Life Plan: Do you want to h ave children? No Human Trafficking: Social Info Question Answer Notes Human Trafficking Experienced: No Sexual History: Social Info Question Answer Notes Sexual History: Sexual History Reviewed: Partner s, Practices, Protection/Past STIs, Prevention of Currently sexually active? Yes Sexually active with: Men Number of male partners 1 Your sexual activities include: vaginal intercourse Reviewed types of EC? No Number of partners in past 3 months: 1 Number of partners in past year: 1 What is the client's primary method to prevent at the end of their visit? IUD Does your partner(s) currently have any STIs? No Counseling Provided: Social Info Question Answer Notes Counseling Provided Please indicate the length of time, in minutes, that counseling was provided. 6 Counseling Was Provided By: rosita Drugs/Alcohol: Social Info Question Answer Notes Drug/Alcohol Use Do you or have you used drugs? No Do you or have you used alcohol? Yes, currently occassionally Food Access: Social Info Question Answer Notes Food Access The Client's current access to food is Secure Food Access Relationships: Social Info Question Answer Notes Relationships Has the client experienced any of the following: Client has never experienced harmful relationships denies DO NOT USE - Travel Plans: Social Info Question Answer Notes Travel Plans DO NOT USE - Has cli ent traveled to any Zika affected areas? No DO NOT USE - Has partner traveled to any Zika af fected areas? No DO NOT USE - Is client planning to travel to any Zika affected areas? Yes DO NOT USE - Is partner planning to travel to an y Zika affected areas? Yes Housing Social Info Question Answer Notes Housing The client's current living situation is: stable housing Tobacco Use: Social Info Question Answer Notes Tobacco Use: Do you/have you used tobacco? No Problems Problem Type SNOMED Code ICD Code Onset Dates Problem Status W/U Status Risk Notes Problem Atrophy of vulva (566561558) Atrophy of vulva (N90.5) Active confirmed Problem Menopausal symptom (55867265) Menopausal symptoms (N95.1) Active confirmed Vital Signs Blood pressure diastolic 60 mm Hg 04/25/2025 Height 64 in 04/25/2025 Blood pressure systolic 116 mm Hg 04/25/2025 Weight 133.2 lbs 04/25/2025 BMI 22.86 kg/m2 04/25/2025 Encounters Encounter Location Date Provider Diagnosis [facility] [address] [place] [address] [phone] 04/25/2025 SARITA GABAI Encounter for gynecological examination (general) (routine) without abnormal findings Z01.419 ; Encounter for screening for human papillomavirus (HPV) Z11.51 and Counseling, unspecified Z71.9 [facility] [address] [place] [address] [id number] 09/11/2024 SARITA GABAI [facility] [address] [place] [address] [id number] 05/02/2025 SARITA GABAI [facility] [address] [place] [address] [id number] 04/30/2025 SARITA GABAI Assessments Encounter Date Diagnosis (ICD Code) Assessment Notes Treatment Notes Treatment Clinical Notes Section Notes 04/25/2025 Encounter for screening for human papillomavirus (HPV) (ICD-10 - Z11.51) 04/25/2025 Encounter for gynecological examination (general) (routine) without abnormal findings (ICD-10 - Z01.419) Reviewed routine screening, safe sex and consistent barrier protection. Aware of window period for testing and testing options. Discussed symptoms that would warrant further evaluation and follow-up care. Aware of ASCCP guidelines and self breast awareness. Encouraged physical with PCP to have routine labs and screening performed. Discussed PE findings. Reviewed GSM treatment options, including vaginal estrogen in the form of cream, tablets, or ring. These therapies can help restore the vaginal epithelium, normalize beckie and pH, alleviate local symptoms, and improve urinary symptoms. Discussed the importance of using vaginal moisturizer and/or vaginal estrogen for atrophic changes. She prefers to use vaginal estrogen PRN and vaginal moisturizer daily as well as lubricant with IC. Declines refill rx for vaginal estrogen at this time. Samples of Good Clean Love products dispensed. Also offered info on Julva which is available OTC.Can continue to consider HRT if hot flashes or other vasomotor symptoms occur, clt prefers to hold off for now. 04/25/2025 Counseling, unspecified (ICD-10 - Z71.9) Plan Of Treatment No Information Insurance Providers Payer Name Payer Address Payer Phone Subscriber Number Group Number Insured Name Patient Relationship to Insured Coverage Start Date Coverage End Date [facility] [employer] [address] [address] [place], [place] [id number] Dottie Enciso Self - patient is the insured Medical (General) History Medical History History ICD Code Migraines- Occipital neuralgia VVC Meningioma incidentally diagnosed on MRI , surgery and radiation 2020 Abnormal PAP Surgical History Surgery Date(Month/Year) nerve decompression for migraines
--- OUTSIDE RECORDS SUMMARY | 2025-06-15 09:37 | XMS_ITS | Encounter Summary ---
Author Organization [facility] Address [address] [place] [address] Phone Care Team Providers Care Business Analyst Name Role Phone Rogelio Niño MD Primary Care Provider + Sebastián Parra MD Unavailable [phone] Leah Doyle MD Unavailable Yobany Castro MD Primary Care Pr ovider Vanessa Carvajal ANY COMMODITY BUYER Unavailable [phone] Encounter Details Date Type Department Care Team (Late st Contact Info) Description 07/05/2024 Procedure Pass MRI, [facility] - [address], [address] [place] [address] Social History Tobacco Use Types Packs/Day Years Used Date Smoking Tobacco: Never Smokeless Tobacco: Never Alcohol Use Standard Drinks/Week Comments Yes 0 (1 standard drink = 0.6 oz pur e alcohol) rare Education Answer Date Recorded Are you interested in more education? Not on kim e 12/26/2022 Are you concerned about learning? Not on file 12/26/2022 No 12/26/2022 No 12/26/2022 Digital Access Answer Date Recorded No 01/24/2023 No 01/24/2023 No 01/24/2023 Reliable internet access at home? Not on file 01/24/2023 Device with a working camera? Not on file Comments No Sex and Gender Information Value [...] on filedocumented in this encounter Care Teams Business Analyst Relationship Specialty Start Date End Date Rogelio Niño MD [address] [place] [address] [email or web address] PCP - General Internal Medicine 06/10/18 09/04/24 Yobany Castro MD [address] [place] [address] PCP - General Family Medicine 09/05/24 Sebastián Parra MD [address] [place] [address] [address] [place] [address] [email or web address] Neurosurgery 11/19/19 Leah Doyle MD [address] [place], [place] [address] [address] [email or web address] Radiation Oncology 11/19/19 Vanessa Carvajal FNP [address] [place] [address] [email or web address] Nurse Practitioner Nurse Practitioner 12/08/24 documented as of this encounter Additional Source Comments The information contained in this document represents components of the legal health record. It is not the complete legal health record.[facility]
--- OUTSIDE RECORDS SUMMARY | 2025-06-15 09:37 | XMS_ITS | Encounter Summary ---
Author Organization [facility] Address [address] [place] [address] Phone Care Team Providers Care 3D Specialist Name Role Phone Rogelio Niño MD Primary Care Provider + Sebastián Parra MD Unavailable [phone] Leah Doyle MD Unavailable Yobany Castro MD Primary Care Pr ovider Vanessa Carvajal FLORAL ARRANGER Unavailable [phone] Encounter Details Date Type Department Care Team (Late st Contact Info) Description 10/24/2019 Procedure Pass MRI, [facility] - [address], [address] [place] [address] Social History Tobacco Use Types [...] on filedocumented in this encounter Care Teams 3D Specialist Relationship Specialty Start Date End Date Rogelio Niño MD [address] [place] [address] [email or web address] PCP - General Internal Medicine 06/10/18 09/04/24 Yobany Castro MD [address] [place], [place] [address] [address] PCP - General Family Medicine 09/05/24 Sebastián Parra MD [address] [place] [address] [address] [place] [address] [email or web address]@[email or web address] Neurosurgery 11/19/19 Leah Doyle MD [address] [place], [place] [address] [address] [email or web address] Radiation Oncology 11/19/19 Vanessa Carvajal FNP [address] [place] [address] [email or web address] Nurse Practitioner Nurse Practitioner 12/08/24 documented as of this encounter Additional Source Comments The information contained in this document represents components of the legal health record. It is not the complete legal health record.[facility]
--- OUTSIDE RECORDS SUMMARY | 2025-06-15 09:37 | XMS_ITS | Encounter Summary ---
Author Organization [facility] Address [address] [place] [address] Phone Care Team Providers Care Program Consultant Name Role Phone Rogelio Niño MD Primary Care Provider + Sebastián Parra MD Unavailable [phone] Leah Doyle MD Unavailable Yobany Castro MD Primary Care Pr ovider Vanessa Carvajal SENIOR PROPERTY ACCOUNTANT Unavailable [phone] Encounter Details Date Type Department Care Team (Late st Contact Info) Description 12/31/2021 Procedure Pass MRI, [facility] - [address], [address] [place] [address] Social History Tobacco Use Types [...] on filedocumented in this encounter Care Teams Program Consultant Relationship Specialty Start Date End Date Rogelio Niño MD [address] [place] [address] [email or web address] PCP - General Internal Medicine 06/10/18 09/04/24 Yobany Castro MD [address] [place], [place] [address] [address] PCP - General Family Medicine 09/05/24 Sebastián Parra MD [address] [place] [address] [address] [place] [address] [email or web address] Neurosurgery 11/19/19 Leah Doyle MD [address] [place], [place] [address] [address] [email or web address] Radiation Oncology 11/19/19 Vanessa Carvajal FNP [address] [place] [address] [email or web address] Nurse Practitioner Nurse Practitioner 12/08/24 documented as of this encounter Additional Source Comments The information contained in this document represents components of the legal health record. It is not the complete legal health record.[facility]
--- OUTSIDE RECORDS SUMMARY | 2025-06-15 09:37 | XMS_ITS | Encounter Summary ---
Author Organization [facility] Address [address] [place] [address] Phone Care Team Providers Care Fiber Technician Name Role Phone Rogelio Niño MD Primary Care Provider + Sebastián Parra MD Unavailable [phone] Leah Doyle MD Unavailable Yobany Castro MD Primary Care Pr ovider Vanessa Carvajal STATION WORKER Unavailable [phone] Encounter Details Date Type Department Care Team (Late st Contact Info) Description 01/03/2019 Procedure Pass [facility] [address] [place] [address] Social History Tobacco Use Types Packs/Day Years Used Date Smoking Tobacco: Never Smokeless Tobacco: Never Alcohol Use Standard Drinks/Week Comments Yes 0 (1 standard drink = 0.6 oz pur e alcohol) rare Comments Unknown Sex and Gender Information Value Date Recorded Sex Assigned at Female 09/26/2019 10:12 AM EST Legal Sex Female 5:25 PM EST Gender Identity Female 09/26/2019 10:12 AM EST Sexual Orientation Straight 09/26/2019 10 :12 AM EST documented as of this encounter Plan of Treatment Not on file documented as of this encounter Visit Diagnoses Not on filedocumented in this encounter Care Teams Fiber Technician Relationship Specialty Start Date End Date Rogelio Niño MD [address] [place] [address] [email or web address] PCP - General Internal Medicine 06/10/18 09/04/24 Yobany Castro MD [address] [place], [place] [address] [address] PCP - General Family Medicine 09/05/24 Sebastián Parra MD [address] [place] [address] [address] [place] [address] [email or web address] Neurosurgery 11/19/19 Leah Doyle MD [address] [place] [address] [email or web address] Radiation Oncology 11/19/19 Vanessa Carvajal FNP [address] [place] [address] [email or web address] Nurse Practitioner Nurse Practitioner 12/08/24 documented as of this encounter Additional Source Comments The information contained in this document represents components of the legal health record. It is not the complete legal health record.[facility]
--- OUTSIDE RECORDS SUMMARY | 2025-06-15 09:37 | XMS_ITS | Patient Health Record ---
Author Organization [facility] Address [address] [place] [address] Care Team Providers Care Coverer Name Role Phone Jimmy Malagon Primary Care Provider [phone] Rogelio Niño Unavailable Unavailable Reason For Referral [...] 1 week, then increase to 2 caps qam; Duration: 30 day(s) 05/02/2021 Active Plan Of Treatment No Information Insurance Providers Payer Name Payer Address Payer Phone Subscriber Number Group Number Insured Name Patient Relationship to Insured Coverage Start Date Coverage End Date [facility] [address]BS [address] [place] [id number] Dottie Enciso Self - patient is the insured Medical (General) History Surgical History Surgery Date(Month/Year) The patient has had no prior surgeries The patient has had no prior surgeries 2017-08-17
--- OUTSIDE RECORDS SUMMARY | 2025-06-15 09:37 | XMS_ITS | Encounter Summary ---
Author Organization [facility] Address [address] [place] [address] Phone Care Team Providers Care Behavior Support Specialist Name Role Phone Rogelio Niño MD Primary Care Provider + Sebastián Parra MD Unavailable [phone] Leah Doyle MD Unavailable Yobany Castro MD Primary Care Pr ovider Vanessa Carvajal AUTOMATIC WHEEL LINE OPERATOR Unavailable [phone] Encounter Details Date Type Department Care Team (Late st Contact Info) Description 02/17/2021 Procedure Pass MRI, [facility] - [address], [address] [place] [address] Social History Tobacco Use Types [...] on filedocumented in this encounter Care Teams Behavior Support Specialist Relationship Specialty Start Date End Date Rogelio Niño MD [address] [place] [address] [email or web address] PCP - General Internal Medicine 06/10/18 09/04/24 Yobany Castro MD [address] [place], [place] [address] [address] PCP - General Family Medicine 09/05/24 Sebastián Parra MD [address] [place] [address] [address] [place] [address] JACKLYN@[email or web address] Neurosurgery 11/19/19 Leah Doyle MD [address] [place], [place] [address] [address] [email or web address] Radiation Oncology 11/19/19 Vanessa Carvajal FNP [address] [place] [address] [email or web address] Nurse Practitioner Nurse Practitioner 12/08/24 documented as of this encounter Additional Source Comments The information contained in this document represents components of the legal health record. It is not the complete legal health record.[facility]
--- OUTSIDE RECORDS SUMMARY | 2025-06-15 09:37 | XMS_ITS | Encounter Summary ---
Author Organization [facility] Address [address] [place] [address] Phone Care Team Providers Care Colorist Photography Name Role Phone Rogelio Niño MD Primary Care Provider + Sebastián Parra MD Unavailable [phone] eLah Doyle MD Unavailable Yobany Castro MD Primary Care Pr ovider Vanessa Carvajal APPLICATION SUPPORT ENGINEER Unavailable [phone] Encounter Details Date Type Department Care Team (Late st Contact Info) Description 06/06/2019 Procedure Pass [facility] [address] [place] [address] Social History Tobacco Use Types Packs/Day Years [...] on filedocumented in this encounter Care Teams Colorist Photography Relationship Specialty Start Date End Date Rogelio Niño MD [address] [place] [address] [email or web address] PCP - General Internal Medicine 06/10/18 09/04/24 Yobany Castro MD [address] [place], [place] [address] [address] PCP - General Family Medicine 09/05/24 Sebastián Parra MD [address] [place] [address] [address] [place] [address] [email or web address] Neurosurgery 11/19/19 Leah Doyle MD [address] [place] [address] [email or web address] Radiation Oncology 11/19/19 Vanessa Carvajal FNP [address] [place] [address] [email or web address] Nurse Practitioner Nurse Practitioner 12/08/24 documented as of this encounter Additional Source Comments The information contained in this document represents components of the legal health record. It is not the complete legal health record.[facility]
--- OUTSIDE RECORDS SUMMARY | 2025-06-15 09:37 | XMS_ITS | Encounter Summary ---
Author Organization [facility] Address [address] [place] [address] Phone Care Team Providers Care Parts Inspector Name Role Phone Rogelio Niño MD Primary Care Provider + Sebastián Parra MD Unavailable [phone] Leah Doyle MD Unavailable Yobany Castro MD Primary Care Pr ovider Vanessa Carvajal COMPUTER TERMINAL OPERATOR Unavailable [phone] Encounter Details Date Type Department Care Team (Late st Contact Info) Description 07/06/2018 Procedure Pass [facility] [address] [place] [address] Social History Tobacco Use Types Packs/Day Years [...] on filedocumented in this encounter Care Teams Parts Inspector Relationship Specialty Start Date End Date Rogelio Niño MD [address] [place] [address] [email or web address] PCP - General Internal Medicine 06/10/18 09/04/24 Yobany Castro MD [address] [place], [place] [address] [address] PCP - General Family Medicine 09/05/24 Sebastián Parra MD [address] [place] [address] [address] [place] [address] JACKLYN@[email or web address] Neurosurgery 11/19/19 Leah Doyle MD [address] [place] [address] [facility] Radiation Oncology 11/19/19 Vanessa Carvajal FNP [address] [place] [address] [email or web address] Nurse Practitioner Nurse Practitioner 12/08/24 documented as of this encounter Additional Source Comments The information contained in this document represents components of the legal health record. It is not the complete legal health record.[facility]
--- OUTSIDE RECORDS SUMMARY | 2025-06-15 09:37 | XMS_ITS | Encounter Summary ---
Author Organization [facility] Address [address] [place] [address] Phone Care Team Providers Care Crm Campaign Manager Name Role Phone Rogelio Niño MD Primary Care Provider + Sebastián Parra MD Unavailable [phone] Leah Doyle MD Unavailable Yobany Castro MD Primary Care Pr ovider Vanessa Carvajal OUTDOOR ADVERTISING LEASING AGENT Unavailable [phone] Encounter Details Date Type Department Care Team (Late st Contact Info) Description 10/10/2019 Procedure Pass [facility] [address] [place] [phone] Social History Tobacco Use Types Packs/Day Years [...] on filedocumented in this encounter Care Teams Crm Campaign Manager Relationship Specialty Start Date End Date Rogelio Niño MD [address] [place] [phone] [email or web address] PCP - General Internal Medicine 06/10/18 09/04/24 Yobany Castro MD [address] [place], [place] [address] [address] PCP - General Family Medicine 09/05/24 Sebastián Parra MD [address] [place] [address] [address] [place] [address] [email or web address] Neurosurgery 11/19/19 Leah Doyle MD [address] [place], [place] [address] [address] [email or web address] Radiation Oncology 11/19/19 Vanessa Caravjal FNP [address] [place] [address] [email or web address] Nurse Practitioner Nurse Practitioner 12/08/24 documented as of this encounter Additional Source Comments The information contained in this document represents components of the legal health record. It is not the complete legal health record.[facility]
--- OUTSIDE RECORDS SUMMARY | 2025-06-15 09:37 | XMS_ITS | Encounter Summary ---
Author Organization [facility] Address [address] [place] [address] Phone Care Team Providers Care Electric Motor Tester Name Role Phone Rogelio Niño MD Primary Care Provider + Sebastián Parra MD Unavailable [phone] Leah Doyle MD Unavailable Yobany Castro MD Primary Care Pr ovider Vanessa Carvajal RECEIVING TEAM MEMBER Unavailable [phone] Encounter Details Date Type Department Care Team (Late st Contact Info) Description 09/03/2020 Procedure Pass MRI, [facility] - [address], [address] [place] [address] Social History Tobacco Use Types [...] on filedocumented in this encounter Care Teams Electric Motor Tester Relationship Specialty Start Date End Date Rogelio Niño MD [address] [place] [address] [email or web address] PCP - General Internal Medicine 06/10/18 09/04/24 Yobany Castro MD [address] [place], [place] [address] [address] PCP - General Family Medicine 09/05/24 Sebastián Parra MD [address] [place] [address] [address] [place] [address] [email or web address] Neurosurgery 11/19/19 Leah Doyle MD [address] [place], [place] [address] [address] [email or web address] Radiation Oncology 11/19/19 Vanessa Carvajal FNP [address] [place] [address] [email or web address] Nurse Practitioner Nurse Practitioner 12/08/24 documented as of this encounter Additional Source Comments The information contained in this document represents components of the legal health record. It is not the complete legal health record.[facility]
--- OUTSIDE RECORDS SUMMARY | 2025-06-15 09:37 | XMS_ITS | Encounter Summary ---
Author Organization [facility] Address [address] [place] [address] Phone Care Team Providers Care Calibrator Barometers Name Role Phone Rogelio Niño MD Primary Care Provider + Sebastián Parra MD Unavailable [phone] Leah Doyle MD Unavailable Yobany Castro MD Primary Care Pr ovider Vanessa Carvajal CABLE TENDER Unavailable [phone] Encounter Details Date Type Department Care Team (Late st Contact Info) Description 03/05/2020 Procedure Pass MRI, [facility] - [address], [address] [place] [address] Social History Tobacco Use Types [...] on filedocumented in this encounter Care Teams Calibrator Barometers Relationship Specialty Start Date End Date Rogelio Niño MD [address] [place] [address] [email or web address] PCP - General Internal Medicine 06/10/18 09/04/24 Yobany Castro MD [address] [place], [place] [phone] [address] PCP - General Family Medicine 09/05/24 Sebastián Parra MD [address] [place] [address] [address] [place] [address] [email or web address] Neurosurgery 11/19/19 Leah Doyle MD [address] [place], [place] [address] [address] [email or web address] Radiation Oncology 11/19/19 Vanessa Carvajal FNP [address] [place] [address] [email or web address] Nurse Practitioner Nurse Practitioner 12/08/24 documented as of this encounter Additional Source Comments The information contained in this document represents components of the legal health record. It is not the complete legal health record.[facility]
--- OUTSIDE RECORDS SUMMARY | 2025-06-15 09:37 | XMS_ITS | Encounter Summary ---
Author Organization [facility] Address [address] [place] [address] Phone Care Team Providers Care Quality Improvement Coordinator (Rn) Name Role Phone Rogelio Niño MD Primary Care Provider + Rogelio Niño MD Primary Care Provider + Sebastián Parra MD Unavailable [phone] Leah Doyle MD Unavailable Yobany Castro MD Primary Care Pr ovider Vanessa Carvajal [employer] [employer]ITH Unavailable [phone] Encounter Details Date Type Department Care Team (Late st Contact Info) Description 11/25/2017 Procedure Pass MRI, [facility] - [address], [address] [place] [id number] Social History Tobacco Use Types Packs/Day Years Used Date Smoking Tobacco: Never Comments Unknown Sex and Gender Information Value [...] on filedocumented in this encounter Care Teams Quality Improvement Coordinator (Rn) Relationship Specialty Start Date End Date Rogelio Niño MD [address] [place] [address] [email or web address] PCP - General Internal Medicine 11/16/17 Rogelio Niño MD [address] [place] [address] [email or web address] PCP - General Internal Medicine 06/10/18 09/04/24 Yobany Castro MD [address] [place], [place] [address] [address] PCP - General Family Medicine 09/05/24 Sebastián Parra MD [address] [facility] [address] [place] [address] [email or web address] Neurosurgery 11/19/19 Leah Doyle MD [address] [place], [place] [address] [place] [address] [email or web address] Radiation Oncology 11/19/19 Vanessa Carvajal FNP [address] [place] [address] [email or web address] Nurse Practitioner Nurse Practitioner 12/08/24 documented as of this encounter Additional Source Comments The information contained in this document represents components of the legal health record. It is not the complete legal health record.[facility]
--- OUTSIDE RECORDS SUMMARY | 2025-06-15 09:37 | XMS_ITS | Clinical Summary ---
Author Organization [facility] [address] [place] [address] [place] [phone] Phone Care Team Providers Care Printed Circuit Board Panels Plater Name Role Phone Yobany Castro MD Primary Care Pr ovider Allergies No known active allergies Medications estrogens, [...] Not sure if she will obtain routine Rn Traveling care here or return to [facility]. If she desires to come here, she will call to make her appt in the spring. Vulvar burning 06/26/2024 Overview (06/30/2024): Last Assessment & Plan: I explained to Edmundo that I do believe there is some [...] coconut oil, soak and seal and follow [facility] guidelines, as well as treat for possible cutaneous candidiasis, and return for vulvar biopsy in 2 weeks. Resolved Problems Problem Noted Date Diagnosed Date Resolved Date Meningioma ([facility] V24, [facility] V28) 11/16/2024 11/16/2024 Immunizations Immunization Administration Dates Next Due HepB-CpG (Heplisav-B) 18yo and older 02/08/2024 Zoster recombinant (Shingrix) 19yo and older 12/2023,01/04/2023 Surgical History Surgery Date Site/Laterality Comments BRAIN SURGERY 10/10/2019 removal of meningioma Medical History Medical History Date Comments History of meningioma Family History Medical History Relation Name Comments [...] you may not have stable housing? No 11/16/2024 Food Access & Nutrition Answer Date Rec orded Do you have access to a vari ety of food including fruits and vegetables? Yes 11/16/2024 Access to Healthcare Answer Date Record ed Within the last 3 months, ho w many times did you visit the emergency department for your medical care? 0 07/07/2024 Health Literacy Answer Date Recorded How often do you need to hav e someone help you when you read instructions, pamphlets, or other written material from your doctor or pharmacy? Never 11/16/2024 Caregiver: How often do you need to have someone help you when you read instructions, pamphlets, or other written material from your doctor or pharmacy? Not on file 11/16/2024 Financial Risk Answer Date Recorded How hard is it for you to pa y for the very basics like food, housing, medical care, and air conditioning / heating? Not very hard 11/16/2024 Transportation Answer Date Recorded Has the lack of transportati on kept you from meetings, work, or from getting things needed for daily living? No Has the lack of transportati on kept you from medical appointments or from getting medications? No 11/16/2024 Social Isolation Answer Date Recorded How often do you feel lonely or isolated from th ose around you? Never 11/16/2024 Food Risk Answer Date Recorded Within the past 12 months we worried whether our food would run out before we got money to buy more. Never true 11/16/2024 Within the past 12 months th e food we bought just didn't last and we didn't have money to get more. Never true 11/16/2024 Dependent Care Answer Date Recorded Do you need help finding or paying for care for your loved ones. For example, child development instructor or elderly care for an older adult? No 11/16/2024 Education Answer Date Recorded Do you think completing more education or training, like finishing a GED, going to college, or learning a trade, would be helpful for you? No 11/16/2024 Employment and Income Answer Date Recor ded During the last four weeks, have you been actively looking for work? No 11/16/2024 Living Situation Answer Date Recorded What is your living situation? Unrecognized valu e 11/16/2024 Comments No Sex and Gender Information Value Date Recorded Sex Assigned at Female 11/16/2024 2:43 PM EDT Legal Sex Female 12:28 AM EST Gender Identity Female 11/10/2024 2:18 PM EDT Sexual Orientation Straight 11/10/2024 2: 18 PM EDT Obstetrics History Para Term AB IAB SAB Ectopic Multiple Livin g Live Births 0 0 0 0 0 0 0 0 Last Filed Vital Signs Vital Sign Reading Time Taken Comments Blood Pressure 87/59 11/16/2024 1:12 PM EDT Pulse 75 11/16/2024 1:12 PM EDT Temperature 36.6 C (97.9 F) 11/16/2024 1:12 PM EDT Respiratory Rate 14 11/16/2024 1:12 PM EDT Oxygen Saturation 98% 11/16/2024 1:12 PM EDT Inhaled Oxygen Concentration - - Weight 61.2 kg (135 lb) 2024 9:33 AM EDT Height 162.6 cm (5' 4 ) 2024 9:33 AM EDT Body Mass Index 23.17 2024 9:33 AM EDT Plan of Treatment Upcoming Encounters Date Type Department Care Team (Late st Contact Info) Description 06/18/2025 8:45 AM EDT Procedure visit [facility] [address] [place], [place] [phone] Marcelina Booth DO [address] [place], [place] 2025 8:00 AM EDT Office Visit Adult Medicine [address] [phone] Yobany Castro MD [address] [place] [address] Health Maintenance Due Date Last Done Comments Colorectal Cancer Screening: Colonoscopy 1972 DTaP,Tdap,and Td Vaccines (1 - Tdap) 11/24/1991 Cervical Cancer Screening: Pap Smear 1993 Pneumococcal Vaccine: 50+ Years (1 of 1 - PCV) 2022 Hepatitis B Vaccines (2 of 2 - CpG 2-dose series) 03/07/2024 02/08/2024 HIV Screening 06/06/2024 COVID-19 Vaccine ( season) 2025 02/08/2024, 08/21/2021, 01/14/2021, Additional history exists Influenza Vaccine (#1) 2025 Social Influencers of Health Screening 11/16/2025 11/16/2024 Breast Cancer Screening 2026 2024 Cholesterol Screening (Lipid Panel) 11/28/2029 11/28/2024 RSV Immunization Adult Patients (1 - 1-dose 75+ series) 11/24/2047 Zoster Vaccines Completed 02/02/2024, 01/04/2023 Hepatitis C Screening Completed 11/28/2024 Depression Screening Completed 06/11/2025 HIB Vaccines Aged Out No longer eligi [...] age to complete this topic Meningococcal B Vaccine Aged Out No l onger eligible based on patient's age to complete this topic RSV Immunization Patients Under 20 months Aged Out No longer eligible based on patient's age to complete this topic Varicella Vaccines Aged Out No longer eligible based on patient's age to complete this topic Procedures Procedure Name Priority Date/Time Associated Diagnosis Comments HEPATITIS C ANTIBODY Routine 11/28/2024 10:41 AM EDT Annual physical exam LIPID PANEL WITH REFLEX TO DIRECT LDL Routine 11/28/2024 10:41 AM EDT Annual physical exam MG MAMMO DIGITAL SCREENING W HOWARD BILAT Routine 2024 9:39 AM EDT Encounter for screening mammogram for malignant neoplasm of breast from Last 3 Months or Most Recently Relevant to Health Maintenance Results * Hepatitis C antibody (11/28/2024 10:41 AM EDT) Hepatitis C Antibody Negative Negative LAB CHEMISTRY METHOD 11/28/2024 6:07 PM EDT [facility] Blood Venous blood specimen / Unknown Venipuncture / Unknown 11/28/2024 10:41 AM EDT 11/28/2024 10:41 AM EDT us Samia BEAN LAB BLOOD ORDERABLES Final Re sult [facility] [address] [place] [address], [place] [phone] * Lipid panel with reflex to direct LDL (11/28/2024 10:41 AM EDT) [facility] Signature Cholesterol 181 0 - 200 mg/dL LAB CHEMISTRY METHOD 11/28/2024 4:49 PM EDT [facility] Triglycerides 40 0 - 150 mg/dL LAB CHEMISTRY METHOD 11/28/2024 4:49 PM EDT [facility] HDL 94 >=40 mg/dL LAB CHEMISTRY METHOD 11/28/2024 4:49 PM EDT [facility] LDL Calculated 79 0 - 100 mg/dL LAB CHEMISTRY METHOD 11/28/2024 4:49 PM EDT [facility] VLDL Cholesterol Pete 8 mg/dL LAB CHEMISTRY METHOD 11/28/2024 4:49 PM EDT [facility] Non HDL Chol. (LDL+VLDL) 87 <145 mg/dL LAB CHEMISTRY METHOD 11/28/2024 4:49 PM EDT [facility] Chol/HDL Ratio 1.9 0.0 - 4.4 LAB CHEMISTRY METHOD 11/28/2024 4:49 PM EDT [facility] Blood Venous blood specimen / Unknown Venipuncture / Unknown 11/28/2024 10:41 AM EDT 11/28/2024 10:41 AM EDT us Samia BEAN LAB BLOOD ORDERABLES Final Re sult [facility] [address] [place] [address], [place] [phone] * MG Mammo Digital Screening w Howard bilat (2024 9:39 AM EDT) Anatomical Region Laterality Modality Breast Bilateral Mammography 11/24/2024 8:30 AM EDT Impressions 11/24/2024 8:34 AM EDT No mammographic evidence of malignancy. A negative mammogram in the presence of a clinically suspicious palpable abnormality does not preclude the possibility of malignancy or alter the indications for biopsy. PQRI CPT II 3342F Code 30463, 64298 PQRI 225 CPT II 7025F TISSUE DENSITY: The breasts are heterogeneously dense, which may obscure small masses. (BI-RADS category C) IMPRESSION: Benign. BI-RADS CATEGORY: 2 - BENIGN RECOMMENDATION: Screening bilateral mammogram is recommended in 1 year. Mammo Location: [facility], [address] [place] [address] -------- FINAL REPORT -------- Dictated By: Martínez Waterman Dictated Date: 11/24/2024 08:30 ET Assigned Physician: Martínez Waterman Reviewed and Electronically Signed By: Martínez Waterman Signed Date: 11/24/2024 08:34 ET Workstation ID: [id number] Transcribed By: Self Edit Transcribed Date: 11/24/2024 08:30 ET Narrative 11/24/2024 8:34 AM EDT CLINICAL: The patient is a 54 years Female presenting for routine screening mammography. COMPARISON: Most recently 03/27/2022 and most remotely 05/23/2015 TECHNIQUE: Full-field digital mammography of the breasts bilaterally consisting of tomosynthesis in MLO and CC projection is performed in the yavalue 2000-D unit. Computer aided detection utilizing the iCAD system was utilized. FINDINGS: The breasts are again seen to be composed of a combination of fatty and moderately dense fibroglandular elements. Several bilateral punctate benign calcifications, most if not all of which are dermal, are stable. There is no suspicious cluster of microcalcifications, mass, or area of architectural distortion. There is no skin thickening or nipple retraction. Procedure Note Martínez Waterman MD - 11/24/2024 CLINICAL: The patient is a 54 years Female presenting for routinescreening mammography. COMPARISON: Most recently 03/27/2022 and most remotely 05/23/2015 TECHNIQUE: Full-field digital mammography of the breasts bilaterallyconsisting of tomosynthesis in MLO and CC projection is performed in the3DiVi Companyographe 2000-D unit. Computer aided detection utilizing the TweetUpDsystem was utilized. FINDINGS: The breasts are again seen to be composed of a combination offatty and moderately dense fibroglandular elements. Several bilateralpunctate benign calcifications, most if not all of which are dermal, arestable. There is no suspicious cluster of microcalcifications, mass, orarea of architectural distortion. There is no skin thickening or nippleretraction. IMPRESSION: No mammographic evidence of malignancy. A negative mammogram in the presence of a clinically suspicious palpableabnormality does not preclude the possibility of malignancy or alter theindications for biopsy. PQRI CPT II 3342F Code 25559, 64753 PQRI 225 CPT II 7025F TISSUE DENSITY: The breasts are heterogeneously dense, which may obscuresmall masses. (BI-RADS category C) IMPRESSION: Benign. BI-RADS CATEGORY: 2 - BENIGN RECOMMENDATION: Screening bilateral mammogram is recommended in 1 year. Mammo Location: [facility], [address] [place] [address] -------- FINAL REPORT -------- Dictated By: Martínez Waterman Dictated Date: 11/24/2024 08:30 ET Assigned Physician: Martínez Waterman Reviewed and Electronically Signed By: Martínez Waterman Signed Date: 11/24/2024 08:34 ET Workstation ID: [id number] Transcribed By: Self Edit Transcribed Date: 11/24/2024 08:30 ET us Samia BEAN IM BI PROCEDURES Final Resul t from Last 3 Months or Most Recently Relevant to Health Maintenance Insurance [employer] Care Teams Printed Circuit Board Panels Plater Relationship Specialty Start Date End Date Yobany Castro MD [address] [place] [phone] PCP - General Internal Medicine 11/16/24
--- OUTSIDE RECORDS SUMMARY | 2025-06-15 09:37 | XMS_ITS | Encounter Summary ---
Author Organization [facility] Address [address] [place] [address] Phone Care Team Providers Care Rn Mds Coordinator Name Role Phone Rogelio Niño MD Primary Care Provider + Sebastián Parra MD Unavailable [phone] Leah Doyle MD Unavailable Yobany Castro MD Primary Care Pr ovider Vanessa Carvajal TRANSCRIPTION SPECIALIST Unavailable [phone] Encounter Details Date Type Department Care Team (Late st Contact Info) Description 06/08/2019 Procedure Pass MRI, [facility] - [address] [place] [address] Social History Tobacco Use Types [...] on filedocumented in this encounter Care Teams Rn Mds Coordinator Relationship Specialty Start Date End Date Rogelio Niño MD [address] [place] [phone] [email or web address] PCP - General Internal Medicine 06/10/18 09/04/24 Yobany Castro MD [address] [place] [address] PCP - General Family Medicine 09/05/24 Sebastián Parra MD [address] [place] [address] [address] [place] [address] [email or web address] Neurosurgery 11/19/19 Leah Doyle MD [address] [place] [address] [email or web address] Radiation Oncology 11/19/19 Vanessa Carvajal FNP [address] [place] [address] [email or web address] Nurse Practitioner Nurse Practitioner 12/08/24 documented as of this encounter Additional Source Comments The information contained in this document represents components of the legal health record. It is not the complete legal health record.[facility]
--- OUTSIDE RECORDS SUMMARY | 2025-06-15 09:37 | XMS_ITS | Patient Health Record ---
Author Organization [facility] Address [address] [place] [address] Care Team Providers Care Supervisor Packing Room Name Role Phone Rogelio Niño MD Primary Care Provider Samia Kaur Unavailable [phone] Reason For Referral No Information Medications Medication SIG (Take, Route, Frequency, Duration) Notes Start Date End Date Status Vitamin B12 Active Magnesium 250 MG 1 tablet with a meal Orally Once a day Active Turmeric Curcumin 500 MG Orally Active Calcium + D3 600-800 MG-UNIT 1 tablet with a meal Orally Once a day Active Social History Tobacco Use: Social History Observation Description Date Details (start date - stop date) Never Smoker NA - NA Tobacco Use/Smoking Question Answer Notes Are you a: nonsmoker Additional Findings: Tobacco Non-User Aggressive non-smoker Alcohol Screen Question Answer Notes Did you have a drink containing alcohol in the p ast year? No Points 0 Interpretation Negative Tobacco use other than smoking: Question Answer Notes Are you an other tobacco user? No Problems Problem Type SNOMED Code ICD Code Onset Dates Problem Status W/U Status Risk Notes Problem Acquired hammer toe of right foot (2528365520090 105) Hammer toe of right foot (M20.41) Active confirmed Problem Acquired hammer toe of left foot (5480834947561 103) Hammer toe of left foot (M20.42) Active confirmed Plan Of Treatment No Information Insurance Providers Payer Name Payer Address Payer Phone Subscriber Number Group Number Insured Name Patient Relationship to Insured Coverage Start Date Coverage End Date [employer] [address] [place] [address] [phone] [id number] [phone] [id number] Dottie Enciso Self - patient is the insured Medical (General) History Medical History History ICD Code Back,Hip,and Knee pain Headaches/Migraines Chicken pox Meningioma ST joint issues
--- OUTSIDE RECORDS SUMMARY | 2025-06-15 09:38 | XMS_ITS | Encounter Summary ---
Author Organization [facility] Address [address] [facility] [address] [place] [address] Phone Care Team Providers Care Spanish Literature Professor Name Role Phone Rogelio Niño MD Primary Care Provider + Rogelio Niño MD Primary Care Provider + Sebastián Parra MD Unavailable [phone] Leah Doyle MD Unavailable Yobany Castro MD Primary Care Pr ovider Vanessa Carvajal LEGUILLON DEBEADER Unavailable [phone] Encounter Details Date Type Department Care Team (Late st Contact Info) Description 06/07/2018 Procedure Pass [facility] [address] [place] [phone] Social History Tobacco Use Types Packs/Day Years [...] on filedocumented in this encounter Care Teams Spanish Literature Professor Relationship Specialty Start Date End Date Rogelio Niño MD [address] [place] [address] [email or web address] PCP - General Internal Medicine 11/16/17 Rogelio Niño MD [address] [place] [address] [email or web address] PCP - General Internal Medicine 06/10/18 09/04/24 Yobany Castro MD [address] [place], [place] [address] [address] PCP - General Family Medicine 09/05/24 Sebastián Parra MD [address] [place] [address] [address] [place] [address] [email or web address] Neurosurgery 11/19/19 Leah Doyle MD [address] [place], [place] [address] [address] [email or web address] Radiation Oncology 11/19/19 Vanessa Carvajal FNP [address] [place] [address] [email or web address] Nurse Practitioner Nurse Practitioner 12/08/24 documented as of this encounter Additional Source Comments The information contained in this document represents components of the legal health record. It is not the complete legal health record.[facility]
--- OUTSIDE RECORDS SUMMARY | 2025-06-15 09:38 | XMS_ITS | Encounter Summary ---
Author Organization [facility] Address [address] [address] [place] [address] Phone Care Team Providers Care Building Carpenter Name Role Phone Rogelio Niño MD Primary Care Provider + Rogelio Niño MD Primary Care Provider + Sebastián Parra MD Unavailable [phone] Leah Doyle MD Unavailable Yobany Castro MD Primary Care Pr ovider Vanessa Carvajal LOAN BROKER Unavailable [phone] Encounter Details Date Type Department Care Team (Late st Contact Info) Description 2017 Procedure Pass [facility] [address] [place] [address] Social History Tobacco Use Types Packs/Day Years [...] on filedocumented in this encounter Care Teams Building Carpenter Relationship Specialty Start Date End Date Rogelio Niño MD [address] [place] [phone] [email or web address] PCP - General Internal Medicine 11/16/17 Rogelio Niño MD [address] [place] [address] [email or web address] PCP - General Internal Medicine 06/10/18 09/04/24 Yobany Castro MD [address] [place] [address] PCP - General Family Medicine 09/05/24 Sebastián Parra MD [address] [place] [address] [address] [place] [address] [email or web address] Neurosurgery 11/19/19 Leah Doyle MD [address] [place], [place] [address] [address] [facility] Radiation Oncology 11/19/19 Vanessa Carvajal FNP [address] [place] [address] [email or web address] Nurse Practitioner Nurse Practitioner 12/08/24 documented as of this encounter Additional Source Comments The information contained in this document represents components of the legal health record. It is not the complete legal health record.[facility]
--- OUTSIDE RECORDS SUMMARY | 2025-06-15 09:38 | XMS_ITS | Clinical Summary ---
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 Immunizations Immunization Administration Dates Next Due COVID-19 (Pre-06/21) Pfizer Vaccine, mRNA, PF ,12/24/2020 Family History Medical History Relation Comments Hearing loss Neg Hx Social History Tobacco Use Types Packs/Day Years [...] file Not on file Not on file Last Filed Vital Signs Vital Sign Reading Time Taken Comments Blood Pressure 124/71 11/29/2020 10:23 AM EDT Pulse 95 11/29/2020 10:23 AM EDT Temperature 36.7 C (98 F) 11/29/2020 10:23 AM EDT Respiratory Rate 16 01/24/2020 2:07 PM EDT Oxygen Saturation 100% 11/29/2020 10:23 AM EDT Inhaled Oxygen Concentration - - Weight 64.4 kg (142 lb) 01/24/2020 2:07 PM EDT Height 162.6 cm (5' 4 ) 10/10/2019 12:00 PM EST Body Mass Index 24.37 10/10/2019 12:00 PM EST Plan of Treatment Health Maintenance Due Date Last Done Comments Adult Td,Tdap Booster 1972 DEPRESSION SCREENING 1984 HEPATITIS C SCREENING 1990 HIV ONE-TIME SCREENING (18-65 YEARS) 1990 PAP SMEAR 1993 COLOGUARD 2017 COLONOSCOPY 2017 COLORECTAL CANCER SCREENING 2017 FIT TEST 2017 FOBT 2017 SIGMOIDOSCOPY 2017 VIRTUAL COLONOSCOPY 2017 PNEUMOCOCCAL VACCINES (50+ years) (1 of 1 - PCV) 2022 INFLUENZA VACCINE (#1) 2025 COVID-19 VACCINE ( - 2024- season) 2025 02/08/2024, 08/21/2021, 01/14/2021, Additional history exists MAMMOGRAM 2026 2024, 2024 LIPID PANEL 11/28/2029 11/28/2024 RSV VACCINE (1 - 1-dose 75+ series) 11/24/2047 SMOKING STATUS SCREENING (Once After 26 Yrs) Completed 12/27/2019 ZOSTER VACCINES Completed 02/02/2024, 01/04/2023 HEPATITIS A VACCINES Aged Out No long er eligible based on patient's age to complete this topic HIB VACCINES Aged Out No longer eligi ble based on patient's age to complete this topic MENINGOCOCCAL VACCINES (ACWY) Aged Out No longer eligible based on patient's age to complete this topic MENINGOCOCCAL VACCINES (B) Aged Out N o longer eligible based on patient's age to complete this topic Medical Devices Implanted Type Area Sap Data Architect Device Identifier Shelf Expiration Date Model / Serial / Lot Nodata NODATA Nose Description:Consented on 09/30 10/20 nose piercing [id number] Screw Bone 1.5x4mm Ti Self Drilling Matrixneuro Pk/5ea - [id number] Implanted:Qty: 13 on 10/10/2019 by Sebastián Parra MD at [facility] NODATA Right: Cranial SYNTHES 04.503.1 04.05 / / Mirena Iud Uterus Matrix Dura 3x3in Onlay Plus - [id number] Implanted:Qty: 1 on 10/10/2019 by Sebastián Parra MD at [facility] Right: Cranial ÓSCAR CRANIOMAXILLOFACIAL DI 06/29/2022 [id number] / / [id number] Plate .3x12mm 2 Hole Cranial Matrixneuro Titanium Straight [place] Space Ultra Low Profile Thick - [id number] Implanted:Qty: 1 on 10/10/2019 by Sebastián Parra MD at [facility] Right: Cranial SYNTHES 04.502.0 62 / / Cover [place] 17mm Hole Cranial Matrixneuro Titanium Ultra Low Profile - [id number] Implanted:Qty: 3 on 10/10/2019 by Sebastián Parra MD at [facility] Right: Cranial SYNTHES 04.502.0 23 / / Insurance [facility] PCP [place]RE[place] POP [place] [place] NON [place] PCP [place]ITY CONNECTORCARE [facility] NON NSPG PCP S[place] [facility] NON NSPG PCP [place] NON [place]SPG PCP [facility] CONNECTORCARE [place] NON NSPG PCP [facility] CONNECTORCARE Advance Directives For more information, please contact: [phone] (9AM - 5PM Leonie/[facility], Wednesday-Wednesday) * Full Code (Presumed) (Latest Code Status on File) Date Activated Date Inactivated Comments 10/10/2019 11:40 AM 10/12/2019 4:08 PM Care Teams Skate Hop Relationship Specialty Start Date End Date Yobany Castro MD [address] [place], [place] [address] [address] PCP - General Family Medicine 09/05/24 Sebastián Parra MD [address] [place] [address] [address] [place] [address] JACKLYN@[email or web address] Neurosurgery 11/19/19 Leah Doyle MD [address] [place], [place] [address] [address] [email or web address] Radiation Oncology 11/19/19 Vanessa Carvajal FNP [address] [place] [address] [email or web address] Nurse Practitioner Nurse Practitioner 12/08/24 Additional Source Comments The information contained in this document represents components of the legal health record. It is not the complete legal health record.[facility]
== END 2025-06-15 09:17 | disposition home or self-care (01) ==
LOC: HO.HOS 08:59
PROVIDERS: PCP Family Medicine; Visit Provider Physical Medicine & Rehabilitation
DX: M79.18 Myalgia, other site (principal)
CPT/HCPCS: 20552

== ENCOUNTER → 2025-06-15 08:59 | Outpatient (BNVA) | payer OTHER, SELFPAY | PROVIDERS: PCP Family Medicine; Visit Provider Physical Medicine & Rehabilitation | DX: M79.18 Myalgia, other site (principal) | CPT/HCPCS: 20552; J2003 ==

== ENCOUNTER 2025-06-29 11:51 | Outpatient (AMB) | payer MEDICAID, SELFPAY ==
--- NOTE | 2025-06-29 12:02 | MHC.OFFVIS ---
Intake Visit Reasons: Trigger Point Inj #2 Intake Note: Dottie is a 54 year old female who presents today for a upper trapezius Trigger Point Injection #2. At today's visit she states no changes to report at this time. Allergies No Known Allergies Allergy (Verified 06/15/25 09:09) HPI Comments Details: Very slight improvement in tightness. No complications from last injection. 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 Consent obtained. 2 trigger points palpated on right upper trapezius, 2 on left. Area cleansed with Betadine. Needling performed with gauge 27 needle, subsequently injecting 1 ml of 2% Lidocaine on each site, total of 4 mL. Patient tolerated procedure well. Post-injection instructions given. 89022-Mrustyb Point Injection 3 or more All charges added?: Procedure code (CPT) selection complete Office Meds lidocaine (PF) 20 mg/mL (2 %) injection solution Performing Provider: Natalia Quintanilla MD Performing Location: [facility] Documented (not given) by: Natalia Quintanilla MD on 06/29/25 12:37 Dose Route Admin Location Dispensed Lot Number Expiration Date [facility] Windows Deployment Technician 80 mg subcut mL Total Dispensed Waste n/a n/a Assessment & Plan Assessment & Plan (1) Myofascial pain: Code(s): M79.18 - Myalgia, other site Category: Medical Plan Tolerated procedure well today. Plan is to use EMG guidance for 3rd trigger point injection, so I can inject splenius muscles. We will try to get prior authorization. If approved, injection will be on 07/04/2025. If we do not get approval, then 3rd injection will be next Wednesday here in the office as scheduled. Assessment and plan discussed with patient, and patient was agreeable. All questions were answered thoroughly. Natalia Quintanilla MD, ELOISA Board Certified, [place] Board of Physical Medicine and Rehabilitation (ABPMR) Board Certified, [place] Board of Electrodiagnostic Medicine (ABEM) Orders: Orders AMB Trigger Point Injection Today M79.18 - Myalgia, other site Medications: New lidocaine (PF) 80 mg (4 mL) subcut ONCE 4 mL 0RF M79.18 - Myalgia, other site Coding Level of Care Code Procedure Only Diagnoses Myofascial pain M79.18 CPT Codes Therapeutic Injection - Ther Injection 2: 74141-T[place]ihit Point Injection 3 or more ([id number])
--- OUTSIDE RECORDS SUMMARY | 2025-06-29 13:28 | XMS_ITS | Encounter Summary ---
Author Organization [facility] Address [address] [place] [address] Phone Care Team Providers Care Furniture Cleaner Name Role Phone Rogelio Niño MD Primary Care Provider + Sebastián Parra MD Unavailable [phone] Leah Doyle MD Unavailable Yobany Castro MD Primary Care Pr ovider Vanessa Carvajal PERSONAL FITNESS MANAGER Unavailable Encounter Details Date Type Department Care Team (Late st Contact Info) Description 07/06/2018 Procedure Pass [facility] [address] [place] [address] Social History Tobacco Use Types Packs/Day Years [...] on filedocumented in this encounter Care Teams Furniture Cleaner Relationship Specialty Start Date End Date Rogelio Niño MD [address] [place] [address] [email or web address] PCP - General Internal Medicine 06/10/18 09/04/24 Yobany Castro MD [address] [place], [place] [address] [address] PCP - General Family Medicine 09/05/24 Sebastián Parra MD [address] [place] [address] [address] [place] [address] JACKLYN@[email or web address] Neurosurgery 11/19/19 Leah Doyle MD [address] [place] [address] [facility] Radiation Oncology 11/19/19 Vanessa Carvajal FNP [address] [place] [address] [email or web address] Nurse Practitioner Nurse Practitioner 12/08/24 documented as of this encounter Additional Source Comments The information contained in this document represents components of the legal health record. It is not the complete legal health record.[facility]
--- OUTSIDE RECORDS SUMMARY | 2025-06-29 13:28 | XMS_ITS | Encounter Summary ---
Author Organization [facility] Address [address] [place] [address] Phone Care Team Providers Care Building And Grounds Supervisor Name Role Phone Rogelio Niño MD Primary Care Provider + Sebastián Parra MD Unavailable [phone] Leah Doyle MD Unavailable Yobany Castro MD Primary Care Pr ovider Vanessa Carvajal SLIDE FORMING MACHINE TENDER Unavailable [phone] Encounter Details Date Type Department Care Team (Late st Contact Info) Description 06/08/2019 Procedure Pass MRI, [facility] - [address] [place] [address] Social History Tobacco Use Types [...] filedocumented in this encounter Care Teams Building And Grounds Supervisor Relationship Specialty Start Date End Date Rogelio Niño MD [address] [place] [address] [email or web address] PCP - General Internal Medicine 06/10/18 09/04/24 Yobany Castro MD [address] [place] [address] PCP - General Family Medicine 09/05/24 Sebastián Parra MD [address] [place] [address] [address] [place] [address] JACKLYN@[facility] Neurosurgery 11/19/19 Leah Doyle MD [address] [place] [address] [email or web address] Radiation Oncology 11/19/19 Vanessa Carvajal FNP [address] [place] [address] [email or web address] Nurse Practitioner Nurse Practitioner 12/08/24 documented as of this encounter Additional Source Comments The information contained in this document represents components of the legal health record. It is not the complete legal health record.[facility]
--- OUTSIDE RECORDS SUMMARY | 2025-06-29 13:28 | XMS_ITS | Encounter Summary ---
Author Organization [facility] Address [address] [address] [place] [address] Phone Care Team Providers Care Concrete Mixing Plant Laborer Name Role Phone Rogelio Niño MD Primary Care Provider + Sebastián Parra MD Unavailable [phone] Leah Doyle MD Unavailable Yobany Castro MD Primary Care Pr ovider Vanessa Carvajal BROWNING PROCESSOR Unavailable [phone] Encounter Details Date Type Department Care Team (Late st Contact Info) Description 09/03/2020 Procedure Pass MRI, [facility] Imaging - [address], [address] [place] [address] Social History Tobacco Use Types [...] on filedocumented in this encounter Care Teams Concrete Mixing Plant Laborer Relationship Specialty Start Date End Date Rogelio Niño MD [address] [place] [address] [email or web address] PCP - General Internal Medicine 06/10/18 09/04/24 Yobany Castro MD [address] [place], [place] [address] [address] PCP - General Family Medicine 09/05/24 Sebastián Parra MD [address] [place] [address] [address] [place] [address] JACKLYN@[facility] Neurosurgery 11/19/19 Leah Doyle MD [address] [place], [place] [address] [address] [email or web address] Radiation Oncology 11/19/19 Vanessa Carvajal FNP [address] [place] [address] [email or web address] Nurse Practitioner Nurse Practitioner 12/08/24 documented as of this encounter Additional Source Comments The information contained in this document represents components of the legal health record. It is not the complete legal health record.[facility]
--- OUTSIDE RECORDS SUMMARY | 2025-06-29 13:28 | XMS_ITS | Encounter Summary ---
Author Organization [facility] Address [address] [place] [address] Phone Care Team Providers Care Decorator Street And Building Name Role Phone Rogelio Niño MD Primary Care Provider + Sebastián Parra MD Unavailable [phone] Leah Doyle MD Unavailable Yobany Castro MD Primary Care Pr ovider Vanessa Carvajal WEB CONTENT SPECIALIST Unavailable [phone] Encounter Details Date Type Department Care Team (Late st Contact Info) Description 06/06/2019 Procedure Pass [facility] [address] [place] [address] Social History Tobacco Use Types Packs/Day Years [...] on filedocumented in this encounter Care Teams Decorator Street And Building Relationship Specialty Start Date End Date Rogelio Niño MD [address] [place] [phone] [email or web address] PCP - General Internal Medicine 06/10/18 09/04/24 Yobany Castro MD [address] [place], [place] [address] [address] PCP - General Family Medicine 09/05/24 Sebastián Parra MD [address] [place] [address] [address] [place] [address] JACKLYN@[facility] Neurosurgery 11/19/19 Leah Doyle MD [address] [place] [address] [facility] Radiation Oncology 11/19/19 Vanessa Carvajal FNP [address] [place] [address] [email or web address] Nurse Practitioner Nurse Practitioner 12/08/24 documented as of this encounter Additional Source Comments The information contained in this document represents components of the legal health record. It is not the complete legal health record.[facility]
--- OUTSIDE RECORDS SUMMARY | 2025-06-29 13:28 | XMS_ITS | Encounter Summary ---
Author Organization [facility] Address [address] [place] [address] Phone Care Team Providers Care Proprietary Trader Name Role Phone Rogeloi Niño MD Primary Care Provider + Sebastián Parra MD Unavailable [phone] Leah Doyle MD Unavailable Yobany Castro MD Primary Care Pr ovider Vanessa Carvajal PRINT PROJECT MANAGER Unavailable [phone] Encounter Details Date Type Department Care Team (Late st Contact Info) Description 03/05/2020 Procedure Pass MRI, [facility] Imaging - [address], [address] [place] [address] Social History Tobacco Use Types [...] on filedocumented in this encounter Care Teams Proprietary Trader Relationship Specialty Start Date End Date Rogelio Niño MD [address] [place] [address] [email or web address] PCP - General Internal Medicine 06/10/18 09/04/24 Yobany Castro MD [address] [place], [place] [address] [address] PCP - General Family Medicine 09/05/24 Sebastián Parra MD [address] [place] [address] [address] [place] [address] JACKLYN@[facility] Neurosurgery 11/19/19 Leah Doyle MD [address] [place], [place] [address] [address] [facility] Radiation Oncology 11/19/19 Vanessa Carvajal FNP [address] [place] [address] [email or web address] Nurse Practitioner Nurse Practitioner 12/08/24 documented as of this encounter Additional Source Comments The information contained in this document represents components of the legal health record. It is not the complete legal health record.[facility]
--- OUTSIDE RECORDS SUMMARY | 2025-06-29 13:28 | XMS_ITS | Encounter Summary ---
Author Organization [facility] Address [address] [place] [address] Phone Care Team Providers Care On Awake Counselor Name Role Phone Rogelio Niño MD Primary Care Provider + Sebastián Parra MD Unavailable [phone] Leah Doyle MD Unavailable Yobany Castro MD Primary Care Pr ovider Vanessa Carvajal ALUMINUM SHINGLE ROOFER Unavailable [phone] Encounter Details Date Type Department Care Team (Late st Contact Info) Description 01/03/2019 Procedure Pass [facility] [address] [place] [address] Social History Tobacco Use Types Packs/Day Years [...] on filedocumented in this encounter Care Teams On Awake Counselor Relationship Specialty Start Date End Date Rogelio Niño MD [address] [place] [phone] [email or web address] PCP - General Internal Medicine 06/10/18 09/04/24 Yobany Castro MD [address] [place], [place] [address] [address] PCP - General Family Medicine 09/05/24 Sebastián Parra MD [address] [place] [address] [address] [place] [address] JACKLYN@[email or web address] Neurosurgery 11/19/19 Leah Doyle MD [address] [place] [address] [facility] Radiation Oncology 11/19/19 Vanessa Carvajal FNP [address] [place] [address] [email or web address] Nurse Practitioner Nurse Practitioner 12/08/24 documented as of this encounter Additional Source Comments The information contained in this document represents components of the legal health record. It is not the complete legal health record.[facility]
--- OUTSIDE RECORDS SUMMARY | 2025-06-29 13:29 | XMS_ITS | Encounter Summary ---
Author Organization [facility] Address [address] [place] [address] Phone Care Team Providers Care Building Repair Maintenance Supervisor Name Role Phone Rogelio Niño MD Primary Care Provider + Rogelio Niño MD Primary Care Provider + Sebastián Parra MD Unavailable [phone] Leah Doyle MD Unavailable Yobany Castro MD Primary Care Pr ovider Vanessa Carvajal PROPERTY DEVELOPER Unavailable [phone] Encounter Details Date Type Department Care Team (Late st Contact Info) Description 11/25/2017 Procedure Pass MRI, [facility] Imaging - [address], [address] [place] [id number] Social History Tobacco Use Types Packs/Day Years [...] filedocumented in this encounter Care Teams Building Repair Maintenance Supervisor Relationship Specialty Start Date End Date Rogelio Niño MD [address] [place] [address] [email or web address] PCP - General Internal Medicine 11/16/17 Rogelio Niño MD [address] [place] [address] [email or web address] PCP - General Internal Medicine 06/10/18 09/04/24 Yobany Castro MD [address] [place], [place] [address] [address] PCP - General Family Medicine 09/05/24 Sebastián Parra MD [address] [facility] [address] [place] [address] [email or web address] Neurosurgery 11/19/19 Leah Doyle MD [address] [place], [place] [address] [place] [address] [email or web address] Radiation Oncology 11/19/19 Vanessa Carvajal FNP [address] [place] [address] [email or web address] Nurse Practitioner Nurse Practitioner 12/08/24 documented as of this encounter Additional Source Comments The information contained in this document represents components of the legal health record. It is not the complete legal health record.[facility]
--- OUTSIDE RECORDS SUMMARY | 2025-06-29 13:29 | XMS_ITS | Encounter Summary ---
Author Organization [facility] Address [address] [place] [address] Phone Care Team Providers Care Cardiothoracic Anesthesia Technician Name Role Phone Rogelio Niño MD Primary Care Provider + Sebastián Parar MD Unavailable [phone] Leah Doyle MD Unavailable Yobany Castro MD Primary Care Pr ovider Vanessa Carvajal MEDICAL LIBRARY ASSISTANT Unavailable [phone] Encounter Details Date Type Department Care Team (Late st Contact Info) Description 02/17/2021 Procedure Pass MRI, [facility] Imaging - [address], [address] [place] [address] Social History Tobacco Use Types [...] on filedocumented in this encounter Care Teams Cardiothoracic Anesthesia Technician Relationship Specialty Start Date End Date Rogelio Niño MD [address] [place] [address] [email or web address] PCP - General Internal Medicine 06/10/18 09/04/24 Yobany Castro MD [address] [place], [place] [address] [address] PCP - General Family Medicine 09/05/24 Sebastián Parra MD [address] [place] [address] [address] [place] [address] [email or web address] Neurosurgery 11/19/19 Leah Doyle MD [address] [place], [place] [address] [address] [email or web address] Radiation Oncology 11/19/19 Vanessa Carvajal FNP [address] [place] [address] [email or web address] Nurse Practitioner Nurse Practitioner 12/08/24 documented as of this encounter Additional Source Comments The information contained in this document represents components of the legal health record. It is not the complete legal health record.[facility]
--- OUTSIDE RECORDS SUMMARY | 2025-06-29 13:29 | XMS_ITS | Clinical Summary ---
Author Organization [facility] [address] [place] [address] Address [address] [place] [address] Phone Care Team Providers Care Bar Roller Name Role Phone Yobany Castro MD Primary Care Pr ovider Allergies No known active allergies Medications estrogens, conjugated (PREMARIN VAGL) Place vaginally. Active Active Problems Problem Noted Date Diagnosed Date ASCUS with positive high risk HPV cervical 06/18 Overview (06/18/2025): 2018 - nml, HPV neg 2023 - nml, HPV+ (16/18/45 neg) 2024 - ASCUS, HPV+ (16/18/45 neg) Colpo: Dyspareunia due to medical condition in female [...] Not sure if she will obtain routine Manager Field Service care here or return to [facility]. If she desires to come here, she [...] coconut oil, soak and seal and follow [facility] guidelines, as well as treat for possible cutaneous candidiasis, and return for vulvar biopsy in 2 weeks. Resolved Problems Problem Noted Date Diagnosed Date Resolved Date Meningioma ([facility] V24, [facility] V28) 11/16/2024 11/16/2024 Encounters Date Type Department Care Team Description 06/22/2025 Results Follow-Up Obstetrics and Gynecology [place] [address] [place] [address] Britt Romeo RN 06/18/2025 8:45 AM EDT Procedure visit Obstetrics and Gynecology - [place] [address] [place] [address] Marcelina Booth, ASCUS with positive high risk HPV cervical (Primary Dx); test negative from Last 3 Months Immunizations Immunization Administration Dates Next Due HepB-CpG [...] care for your loved ones. For example, infant childcare provider or elderly care for an older adult? [...] Sign Reading Time Taken Comments Blood Pressure 108/68 06/18/2025 8:42 AM EDT Pulse 73 06/18/2025 8:42 AM EDT Temperature 36.6 C (97.9 F) 11/16/2024 1:12 PM EDT Respiratory Rate 14 11/16/2024 1:12 PM EDT Oxygen Saturation 98% 11/16/2024 1:12 PM EDT Inhaled Oxygen Concentration - - Weight 60.8 kg (134 lb) 06/18/2025 8:42 AM EDT Height 162.6 cm (5' 4 ) 2024 9:33 AM EDT Body Mass Index 23 2024 9:33 AM EDT Plan of Treatment Upcoming Encounters Date Type Department Care Team (Late st Contact Info) Description 2025 8:00 AM EDT Office Visit Adult Medicine [address] [phone] Yobany Castro MD [address] [place] [address] Health Maintenance Due Date Last Done Comments Colorectal Cancer Screening: Colonoscopy 1972 DTaP,Tdap,and Td Vaccines (1 - Tdap) 11/24/1991 Cervical Cancer Screening: Pap Smear 1993 Pneumococcal Vaccine: 50+ Years (1 of 1 - PCV) 2022 Hepatitis B Vaccines (2 of 2 - CpG 2-dose series) 03/07/2024 02/08/2024 HIV Screening 06/06/2024 COVID-19 Vaccine (5 - season) 2025 02/08/2024, 08/21/2021, 01/14/2021, Additional history [...] Procedure Name Priority Date/Time Associated Diagnosis Comments TISSUE EXAM Routine 06/19/2025 8:09 AM EDT ASCUS with positive high risk HPV cervical OR COLPOSCOPY CERVIX INCL UPPER/ADJACENT VAGINA W ENDOCERV CURETTAGE Routine 06/18/2025 9:40 AM EDT ASCUS with positive high risk HPV cervical POC , URINE DIAGNOSTIC Routine 06/18/2025 8:58 AM EDT test negative HEPATITIS C ANTIBODY Routine 11/28/2024 10:41 AM EDT Annual physical exam LIPID PANEL WITH REFLEX TO DIRECT LDL Routine 11/28/2024 10:41 AM EDT Annual physical exam MG MAMMO DIGITAL SCREENING W HOWARD BILAT Routine 2024 9:39 AM EDT Encounter for screening mammogram for malignant neoplasm of breast from Last 3 Months or Most Recently Relevant to Health Maintenance Results * Tissue Exam (06/19/2025 8:09 AM EDT) Final Diagnosis Endocervical curettings: Scant endocervical mucus with rare unremarkable endocervical glandular cells Insufficient tissue for evaluation of squamous intraepithelial lesion 06/21/2025 1:36 PM EDT [facility] at 1336 EDT Clinical Information ASCUS with positive high risk HPV cervical (R87.610, R87.810) 06/21/2025 1:36 PM EDT [facility] Gross Description A. Endocervix, cirettings: Labeled endocervix . Received in formalin, on a brush, is a scant aggregate of clear mucoid material, which is wrapped in paper and submitted in toto in one cassette, multiple pieces, multiple levels (which might fail processing). TS 06/21/2025 1:36 PM EDT [facility] Disclaimer Unless otherwise specified, all tissue is 10% NB formalin fixed and paraffin embedded. 06/21/2025 1:36 PM EDT [facility] Tissue Endocervical structure / Unknown Non-blood Collection / Unknown 06/19/2025 8:09 AM EDT 06/19/2025 8:09 AM EDT us Marcelina Booth DO LAB PATHOLOGY ORDERABLES Anaya l Result [facility] [address] [place] [address], [place] [phone] * OR COLPOSCOPY CERVIX INCL UPPER/ADJACENT VAGINA W ENDOCERV CURETTAGE (06/18/2025 9:40 AM EDT) Marcelina Sanchez DO - 06/18/2025 9:40 AM EDT Marcelina Booth DO 06/18/2025 9:43 AM Colposcopy with ECC (no biopsy) Indication: ASC-US and POS HR HPV Date/Time: 06/18/2025 9:40 AM Performed by: Marcelina Booth DO Authorized by: Marcelina Booth DO Informed Consent: Relevant images/test results available and reviewed: yes Health status cleared: yes Procedure/treatment, purpose, treatment alternatives, risks/potential complications and benefits explained: yes Risk/complications/benefits details: Bleeding, discomfort, inadequate sample Patient questions answered: yes Patient agrees, verbalizes understanding, and wants to proceed: yes Consent given by: Patient Informed consent discussion completed by Physician/BENNY with patient: Written; patient signed and dated; copy to patient Pre-procedure: Negative urine test: Not indicated Premedications: Acetaminophen Prepped with: acetic acid Procedure: Under satisfactory analgesia the patient was prepped and draped in the dorsal lithotomy position: yes Jesup speculum was placed in the vagina: yes Endocervix was curetted using a Kevorkian curette: yes Endometrial biopsy performed: no Hemostasis achieved: yes Hemostasis achieved with: Applied pressure Specimen to pathology: yes Post-procedure: Findings: transition zone was seen in entirety Impression: normal appearance Colposcopy satisfactory: yes Patient tolerance of procedure: Patient tolerated the procedure well with no immediate complications Marcelina Booth DO IN CLINIC/BEDSIDE ORDERABLES Final Result * POC , urine manually resulted (06/18/2025 8:58 AM EDT) HCG, Ur POC Negative Negative POC hCG Int QC Pass? Yes Yes Urine Urine specimen obtained by clean catch procedure / Unknown 06/18/2025 8:58 AM EDT Marcelina Booth DO POINT OF CARE TEST ENTER/EDIT ORDERABLES Final Result * Hepatitis C antibody (11/28/2024 10:41 AM EDT) [facility] Hepatitis C Antibody Negative Negative LAB CHEMISTRY METHOD 11/28/2024 6:07 PM EDT [facility] Blood Venous blood specimen / Unknown Venipuncture / Unknown 11/28/2024 10:41 AM EDT 11/28/2024 10:41 AM EDT Samia BEAN LAB BLOOD ORDERABLES Final Re sult [facility] [address] [place] [address], [place] [phone] * Lipid panel with reflex to direct LDL (11/28/2024 10:41 AM EDT) [facility] Cholesterol 181 0 - 200 mg/dL LAB CHEMISTRY METHOD 11/28/2024 4:49 PM EDT [facility] Triglycerides 40 0 - 150 mg/dL LAB CHEMISTRY METHOD 11/28/2024 4:49 PM T [facility] HDL 94 >=40 mg/dL LAB CHEMISTRY METHOD 11/28/2024 4:49 PM [facility] LDL Calculated 79 0 - 100 mg/dL LAB CHEMISTRY METHOD 11/28/2024 4:49 PM EDT [facility] VLDL Cholesterol Pete 8 mg/dL LAB CHEMISTRY METHOD 11/28/2024 4:49 PM EDT [facility] Non HDL Chol. (LDL+VLDL) 87 <145 mg/dL LAB CHEMISTRY METHOD [facility]/28[facility]2024 4:[facility] Chol/HDL Ratio 1.9 0.0 - 4.4 LAB CHEMISTRY METHOD 11/28/2024 4:49 PM EDT [facility] Blood Venous blood specimen / Unknown Venipuncture / Unknown 11/28/2024 10:41 AM EDT 11/28/2024 10:41 AM EDT Samia BEAN LAB BLOOD ORDERABLES Final Re sult [facility] [address] [place] [address], * MG Mammo Digital Screening w Howard bilat (2024 9:39 AM EDT) Anatomical Region Laterality Modality Breast Bilateral Mammography 11/24/2024 8:30 AM EDT Impressions 11/24/2024 8:34 AM EDT No mammographic evidence of malignancy. A negative mammogram in the presence of a clinically suspicious palpable abnormality does not preclude the possibility of malignancy or alter the indications for biopsy. PQRI CPT II 3342F Code 96942, 79733 PQRI 225 CPT II 7025F TISSUE DENSITY: The breasts are heterogeneously dense, which may obscure small masses. (BI-RADS category C) IMPRESSION: Benign. BI-RADS CATEGORY: 2 - BENIGN RECOMMENDATION: Screening bilateral mammogram is recommended in 1 year. Mammo Location: [facility], [address] [place] [address] -------- FINAL REPORT -------- Dictated By: Martínez Waterman Dictated Date: 11/24/2024 08:30 ET Assigned Physician: Martínez Waterman Reviewed and Electronically Signed By: Martínez Waterman Signed Date: 11/24/2024 08:34 ET Workstation ID: [id number] Transcribed By: Self Edit Transcribed Date: 11/24/2024 08:30 ET Narrative 11/24/2024 8:34 AM EDT CLINICAL: The patient is a 54 years Female presenting for routine screening mammography. COMPARISON: Most recently 03/27/2022 and most remotely 05/23/2015 TECHNIQUE: Full-field digital mammography of the breasts bilaterally consisting of tomosynthesis in MLO and CC projection is performed in the GE Senographe 2000-D unit. Computer aided detection utilizing the [...] MLO and CC projection is performed in theGE Senographe 2000-D unit. Computer aided detection utilizing the iCADsystem was utilized. FINDINGS: The breasts are again [...] for biopsy. PQRI CPT II 3342F Code 36175, 12584 PQRI 225 CPT II 7025F TISSUE DENSITY: The breasts are heterogeneously dense, which may obscuresmall masses. (BI-RADS category C) IMPRESSION: Benign. BI-RADS CATEGORY: 2 - BENIGN RECOMMENDATION: Screening bilateral mammogram is recommended in 1 year. Mammo Location: [facility], [address] [place] [id number] -------- FINAL REPORT -------- Dictated By: Martínez Waterman Dictated Date: 11/24/2024 08:30 ET Assigned Physician: Martínez Waterman Reviewed and Electronically Signed By: Martínez Waterman Signed Date: 11/24/2024 08:34 ET Workstation ID: [id number] Transcribed By: Self Edit Transcribed Date: 11/24/2024 08:30 ET Samia BEAN IMG BI PROCEDURES Final Resul t from Last 3 Months or Most Recently Relevant to Health Maintenance Insurance [facility] [employer] Care Teams Bar Roller Relationship Specialty Start Date End Date Yobany Castro MD [address] [place] [phone] PCP - General Internal Medicine 11/16/24
--- OUTSIDE RECORDS SUMMARY | 2025-06-29 13:29 | XMS_ITS | Clinical Summary ---
Author Organization [facility] Address [address] [place] [address] Phone Care Team Providers Care Independent Insurance Adjuster Name Role Phone Sebastián Parra MD Unavailable [phone] eLah Doyle MD Unavailable Yobany Castro MD Primary Care Pr ovider Vanessa Carvajal RUG REPAIRER Unavailable [phone] Allergies Active Allergy Reactions Criticality Noted Date [...] this topic Medical Devices Implanted Type Area Process Assistant Device Identifier Shelf Expiration Date Model / Serial / Lot Nodata NODATA Nose Description:Consented on 09/30 10/20 nose piercing [id number] Screw Bone 1.5x4mm Ti Self Drilling Matrixneuro Pk/5ea - [id number] Implanted:Qty: 13 on 10/10/2019 by Sebastián Parra MD at [facility] NODATA Right: Cranial SYNTHES 04.503.1 04.05 / / Mirena Iud Uterus Matrix Dura 3x3in Onlay Plus - [id number] Implanted:Qty: 1 on 10/10/2019 by Sebastián Parra MD at [facility] Right: Cranial ÓSCAR CRANIOMAXILLOFACIAL DI 06/29/2022 [id number] / / [id number] Plate .3x12mm 2 Hole Cranial Matrixneuro Titanium Straight [place] Space Ultra Low Profile Thick - [id number] Implanted:Qty: 1 on 10/10/2019 by Sebastián Parra MD at [facility] Right: Cranial SYNTHES 04.502.0 62 / / Cover [place] 17mm Hole Cranial Matrixneuro Titanium Ultra Low Profile - [id number] Implanted:Qty: 3 on 10/10/2019 by Sebastián Parra MD at [facility] Right: Cranial SYNTHES 04.502.0 23 / / Insurance [facility] PCP ESTRELLA POP [employer]CARE [place] NON NSPG PCP [place]VER CL[place]ITY CONNECTORCARE [facility] NON NSPG PCP [place] [facility] NON NSPG PCP S[place] [employer]CARE [place] NON NSPG PCP [facility] CONNECTORCARE [place] NON NSPG PCP [facility] CONNECTORCARE Advance Directives For more information, please contact: [phone] (9AM - 5PM Leonie/[facility], Wednesday-Wednesday) * Full Code (Presumed) (Latest Code Status on File) Date Activated Date Inactivated Comments 10/10/2019 11:40 AM 10/12/2019 4:08 PM Care Teams Independent Insurance Adjuster Relationship Specialty Start Date End Date Yobany Castro MD [address] [place], [place] [id number] [address] PCP - General Family Medicine 09/05/24 Sebastián Parra MD [address] [place] [address] [address] [place] [address] [email or web address] Neurosurgery 11/19/19 Leah Doyle MD [address] [place], [place] [address] [address] [email or web address] Radiation Oncology 11/19/19 Vanessa Carvajal FNP [address] [place] [address] [email or web address] Nurse Practitioner Nurse Practitioner 12/08/24 Additional Source Comments The information contained in this document represents components of the legal health record. It is not the complete legal health record.[facility]
--- OUTSIDE RECORDS SUMMARY | 2025-06-29 13:29 | XMS_ITS | Encounter Summary ---
Author Organization [facility] Address [address] [place] [address] Phone Care Team Providers Care Historiography Teacher Name Role Phone Rogelio Niño MD Primary Care Provider + Sebastián Parra MD Unavailable [phone] Leah Doyle MD Unavailable Yobany Castro MD Primary Care Pr ovider Vanessa Carvajal CLEARING INSPECTOR Unavailable [phone] Encounter Details Date Type Department Care Team (Late st Contact Info) Description 11/21/2019 Procedure Pass MRI, [facility] Imaging - [address], [address] [place] [address] Social History Tobacco Use Types [...] on filedocumented in this encounter Care Teams Historiography Teacher Relationship Specialty Start Date End Date Rogelio Niño MD [address] [place] [address] [email or web address] PCP - General Internal Medicine 06/10/18 09/04/24 Yobany Castro MD [address] [place], [place] [address] [address] PCP - General Family Medicine 09/05/24 Sebastián Parra MD [address] [place] [address] [address] [place] [address] [email or web address] Neurosurgery 11/19/19 Leah Doyle MD [address] [place], [place] [address] [address] [email or web address] Radiation Oncology 11/19/19 Vanessa Carvajal FNP [address] [place] [address] [email or web address] Nurse Practitioner Nurse Practitioner 12/08/24 documented as of this encounter Additional Source Comments The information contained in this document represents components of the legal health record. It is not the complete legal health record.[facility]
--- OUTSIDE RECORDS SUMMARY | 2025-06-29 13:29 | XMS_ITS | Patient Health Record ---
Author Organization [facility] Address [address] [place] [address] Care Team Providers Care Computer Terminal Operator Name Role Phone Jimmy Malagon Primary Care [...] Start Date Coverage End Date BCBS OF [facility] BCBS [address] [place] [id number] 2000 [id number] Dottie Enciso Self - patient is the insured Medical (General) History Surgical History Surgery Date(Month/Year) The patient has had no prior surgeries The patient has had no prior surgeries 2017-08-17
--- OUTSIDE RECORDS SUMMARY | 2025-06-29 13:29 | XMS_ITS | Encounter Summary ---
Author Organization [facility] Address [address] [place] [address] Care Team Providers Care Sales Manager Name Role Phone Yobany Castro MD Primary Care Pr ovider Encounter Details Date Type Department Care Team (Late st Contact Info) Description 06/22/2025 Results Follow-Up Obstetrics and Gynecology - [place] [place] [phone] Britt Romeo RN Social History Tobacco Use Types Packs/Day Years [...] care for your loved ones. For example, early childhood education coordinator or elderly care for an older adult? [...] Orientation Straight 11/10/2024 2: 18 PM EDT documented as of this encounter Plan of Treatment Upcoming Encounters Date Type Department Care Team (Late st Contact Info) Description 2025 8:00 AM EDT Office Visit Adult Medicine [address] [address] Yobany Castro MD [address] [place] [address] documented as of this encounter Visit Diagnoses Not on filedocumented in this encounter Additional Health Concerns Assessment Noted Time PHQ-9 Depression Total Score: 0 06/11/20 10:28 AM EDT documented as of this encounter Care Teams Sales Manager Relationship Specialty Start Date End Date Yobany Castro MD [address] [place] [address] PCP - General Internal Medicine 11/16/24 documented as of this encounter
--- OUTSIDE RECORDS SUMMARY | 2025-06-29 13:29 | XMS_ITS | Patient Health Record ---
Author Organization [facility] Address [address] [place] [address] Care Team Providers Care Solar Sales Energy Advisor Name Role Phone Rogelio Niño MD Primary Care Provider Samia Kaur Unavailable [phone] Reason For Referral No Information Medications Medication [...] Problem Acquired hammer toe of right foot ([id number] 105) Hammer toe of right foot (M20.41) Active confirmed Problem Acquired hammer toe of left foot ([id number] 103) Hammer toe of left foot (M20.42) Active confirmed Plan Of Treatment No Information Insurance Providers Payer Name Payer Address Payer Phone Subscriber Number Group Number Insured Name Patient Relationship to Insured Coverage Start Date Coverage End Date [employer] [address] [place] [address] [phone] [id number] [phone] [id number] Dottie Enciso Self - patient is the insured Medical (General) History Medical History History ICD Code Back,Hip,and Knee pain Headaches/Migraines Chicken pox Meningioma ST joint issues
--- OUTSIDE RECORDS SUMMARY | 2025-06-29 13:29 | XMS_ITS | Patient Health Record ---
Author Organization [facility] Address [address] [place] [address] Care Team Providers Care Blending Supervisor Name Role Phone SARITA MARRERO Unavailable [phone] Allergies Allergen (clinical drug ingredient) Drug/Non Drug Allergy documented on EMR Reaction Allergy Type Onset Date Status trees (uncoded) Unknown Allergy Acti ve Lanolin Unknown Drug Allergy Active Results Component Value Reference Range Flag Notes PDF Report Reviewed date:05/03/2025 08:57:20 AM Interpretation: Performing Lab:[facility], [address] [place] [address], Phone - [phone], Director - MDMoore Notes/Report: No. of containers..01 ThinPrep Vial Clinical Information:[id number] IGP, Apt HPV,rfx 16/18,45-19 9344 Reviewed date:05/04/2025 08:26:06 AM Interpretation:ASCUS/HPV positive Performing Lab:[facility], [address] [place] [address], Phone - [phone], Director - MDMoore Notes/Report: Clinical Information:[id number] No. of containers..01 ThinPrep Vial Clinical Information:[id number] No. of containers..01 ThinPrep Vial DIAGNOSIS: A EPITHELIAL CELL ABNORMALITY. ATYPICAL SQUAMOUS CELLS OF UNDETERMINED SIGNIFICANCE (ASC-US). Specimen adequacy: Satisfactory for evaluation. Endocervical and/or squamous metaplastic cells (endocervical component) are present. Clinician provided ICD10: Z01.419 Z11.51 Performed by: Tom razo, Talent Management Manager (ASCP) Electronically signed by: Dana Lang MD, Pathologist [...] Negative Negative HPV Genotype 18,45 Negative Negative Reason For Referral Reason Colpo referral Diagnosis 1 Pap Smear - Unspecif ied Abnormal findings (R87.619) Referral Organization [facility] Referring Provider First Name SARITA Referring Provider Last Name EVA Referring Provider Speciality Nurse Prac titioner Referred Provider Specialty Anvilsmith General Notes 54 year old AFAB per son with most recent PAP 03/2025- ASCUS/HPV positive (negative 16/18). Due for colpo as per ASCCP guidelines. Please schedule accordingly. See below for previous PAP results. Thank you, Sarita Marrero HELPER STEEL FABRICATION, 02/2024- NIL/HPV positive (neg 16/18). Due for [...] Status Risk Notes Problem Atrophy of vulva (816058617) Atrophy of vulva (N90.5) Active confirmed Problem Menopausal symptom (13259474) Menopausal symptoms (N95.1) Active confirmed Vital Signs Blood pressure diastolic 60 mm Hg 04/25/2025 Height 64 in 04/25/2025 Blood pressure systolic 116 mm Hg 04/25/2025 Weight 133.2 lbs 04/25/2025 BMI 22.86 kg/m2 04/25/2025 Encounters Encounter Location Date Provider Diagnosis [facility] [address] [place] [id number] 04/25/2025 SARITA GABAI Encounter for gynecological examination (general) (routine) without abnormal findings Z01.419 ; Encounter for screening for human papillomavirus (HPV) Z11.51 and Counseling, unspecified Z71.9 [facility] [address] [place] [address] [id number] 09/11/2024 SARITA GABAI [facility] [address] [place] [address] [id number] 05/02/2025 SARITA GABAI [facility] [address] [place] [address] [id number] 04/30/2025 SARITA GABAI Assessments Encounter Date Diagnosis [...] Insured Coverage Start Date Coverage End Date [facility] [employer] [address] [address] [place], [place] [id number] Dottie Enciso Self - patient is the insured Medical (General) History Medical History History ICD Code Migraines- Occipital neuralgia VVC Meningioma incidentally diagnosed on MRI , surgery and radiation 2020 Abnormal PAP Surgical History Surgery Date(Month/Year) nerve decompression for migraines
--- OUTSIDE RECORDS SUMMARY | 2025-06-29 13:29 | XMS_ITS | Encounter Summary ---
Author Organization [facility] Address [address] [place] [address] Phone Care Team Providers Care Procurement Agent Name Role Phone Rogelio Niño MD Primary Care Provider + Sebastián Parra MD Unavailable [phone] Leah Doyle MD Unavailable Yobany Castro MD Primary Care Pr ovider Vanessa Carvajal FITNESS SUPERVISOR Unavailable [phone] Encounter Details Date Type Department Care Team (Late st Contact Info) Description 07/05/2024 Procedure Pass [facility], [facility] - [address] [place] [address] Social History Tobacco Use Types [...] on filedocumented in this encounter Care Teams Procurement Agent Relationship Specialty Start Date End Date Rogelio Niño MD [address] [place] [address] [email or web address] PCP - General Internal Medicine 06/10/18 09/04/24 Yobany Castro MD [address] [place] [address] PCP - General Family Medicine 09/05/24 Sebastián Parra MD [address] [place] [address] [address] [place] [address] JACKLYN@[email or web address] Neurosurgery 11/19/19 Leah Doyle MD [address] [place], [place] [address] [address] [email or web address] Radiation Oncology 11/19/19 Vanessa Carvajal FNP [address] [place] [address] [email or web address] Nurse Practitioner Nurse Practitioner 12/08/24 documented as of this encounter Additional Source Comments The information contained in this document represents components of the legal health record. It is not the complete legal health record.[facility]
--- OUTSIDE RECORDS SUMMARY | 2025-06-29 13:29 | XMS_ITS | Encounter Summary ---
Author Organization [facility] Address [address] [place] [address] Phone Care Team Providers Care Delivery Nurse Name Role Phone Rogelio Niño MD Primary Care Provider + Sebastián Parra MD Unavailable [phone] Leah Doyle MD Unavailable Yobany Castro MD Primary Care Pr ovider Vanessa Carvajal SALES OFFICE ADMINISTRATOR Unavailable [phone] Encounter Details Date Type Department Care Team (Late st Contact Info) Description 10/10/2019 Procedure Pass [facility] [address] [place] [phone] Social History Tobacco Use Types Packs/Day Years [...] on filedocumented in this encounter Care Teams Delivery Nurse Relationship Specialty Start Date End Date Rogelio Niño MD [address] [place] [address] [email or web address] PCP - General Internal Medicine 06/10/18 09/04/24 Yobany Castro MD [address] [place], [place] [address] [address] PCP - General Family Medicine 09/05/24 Sebastián Parra MD [address] [place] [address] [address] [place] [address] JACKLYN@[email or web address] Neurosurgery 11/19/19 Leah Doyle MD [address] [place], [place] [address] [address] [facility] Radiation Oncology 11/19/19 Vanessa Carvajal FNP [address] [place] [address] [email or web address] Nurse Practitioner Nurse Practitioner 12/08/24 documented as of this encounter Additional Source Comments The information contained in this document represents components of the legal health record. It is not the complete legal health record.[facility]
--- OUTSIDE RECORDS SUMMARY | 2025-06-29 13:29 | XMS_ITS | Encounter Summary ---
Author Organization [facility] Address [address] [place] [address] Phone Care Team Providers Care [employer] Principal Name Role Phone Rogelio Niño MD Primary Care Provider + Sebastián Parra MD Unavailable [phone] Leah Doyle MD Unavailable Yobany Castro MD Primary Care Pr ovider Vanessa Carvajal CHEMICAL ANALYST Unavailable [phone] Encounter Details Date Type Department Care Team (Late st Contact Info) Description 10/24/2019 Procedure Pass MRI, [facility] - [address] [place] [address] Social History Tobacco Use Types [...] on filedocumented in this encounter Care Teams [employer] Principal Relationship Specialty Start Date End Date Rogelio Niño MD [address] [place] [address] [email or web address] PCP - General Internal Medicine 06/10/18 09/04/24 Yobany Castro MD [address] [place], [place] [address] [address] PCP - General Family Medicine 09/05/24 Sebastián Parra MD [address] [place] [address] [address] [place] [address] JACKLYN@[email or web address] Neurosurgery 11/19/19 Leah Doyle MD [address] [place], [place] [address] [address] [facility] Radiation Oncology 11/19/19 Vanessa Carvajal FNP [address] [place] [address] [email or web address] Nurse Practitioner Nurse Practitioner 12/08/24 documented as of this encounter Additional Source Comments The information contained in this document represents components of the legal health record. It is not the complete legal health record.[facility]
--- OUTSIDE RECORDS SUMMARY | 2025-06-29 13:29 | XMS_ITS | Encounter Summary ---
Author Organization [facility] Address [address] [place] [address] Phone Care Team Providers Care Igniter Capper Name Role Phone Rogelio Niño MD Primary Care Provider + Sebastián Parra MD Unavailable [phone] Leah Doyle MD Unavailable Yobany Castro MD Primary Care Pr ovider Vanessa Carvajal STAGECRAFT PROFESSOR Unavailable [phone] Encounter Details Date Type Department Care Team (Late st Contact Info) Description 12/31/2021 Procedure Pass MRI, [facility] - [address] [place] [address] Social History Tobacco Use Types [...] on filedocumented in this encounter Care Teams Igniter Capper Relationship Specialty Start Date End Date Rogelio Niño MD [address] [place] [address] [email or web address] PCP - General Internal Medicine 06/10/18 09/04/24 Yobany Castro MD [address] [place], [place] [address] [address] PCP - General Family Medicine 09/05/24 Sebastián Parra MD [address] [place] [address] [address] [place] [address] JACKLYN@[facility] Neurosurgery 11/19/19 Leah Doyle MD [address] [place], [place] [address] [address] [facility] Radiation Oncology 11/19/19 Vanessa Carvajal FNP [address] [place] [address] [email or web address] Nurse Practitioner Nurse Practitioner 12/08/24 documented as of this encounter Additional Source Comments The information contained in this document represents components of the legal health record. It is not the complete legal health record.[facility]
--- OUTSIDE RECORDS SUMMARY | 2025-06-29 13:30 | XMS_ITS | Encounter Summary ---
Author Organization [facility] Address [address] [place] [address] Phone Care Team Providers Care Dispensary Technician Name Role Phone Rogelio Niño MD Primary Care Provider + Rogelio Niño MD Primary Care Provider + Sebastián Parra MD Unavailable [phone] Leah Doyle MD Unavailable Yobany Castro MD Primary Care Pr ovider Vanessa Carvajal CLAIMS SORTER Unavailable [phone] Encounter Details Date Type Department Care Team (Late st Contact Info) Description 06/07/2018 Procedure Pass [facility] [address] [place] [phone] Social History Tobacco Use Types Packs/Day Years [...] on filedocumented in this encounter Care Teams Dispensary Technician Relationship Specialty Start Date End Date Rogelio Niño MD [address] [place] [address] [email or web address] PCP - General Internal Medicine 11/16/17 Rogelio Niño MD [address] [place] [address] [email or web address] PCP - General Internal Medicine 06/10/18 09/04/24 Yobany Castro MD [address] [place], [place] [address] [address] PCP - General Family Medicine 09/05/24 Sebastián Parra MD [address] [place] [address] [address] [place] [address] JACKLYN@[facility] Neurosurgery 11/19/19 Leah Doyle MD [address] [place], [place] [address] [address] [facility] Radiation Oncology 11/19/19 Vanessa Carvajal FNP [address] [place] [address] [email or web address] Nurse Practitioner Nurse Practitioner 12/08/24 documented as of this encounter Additional Source Comments The information contained in this document represents components of the legal health record. It is not the complete legal health record.[facility]
--- OUTSIDE RECORDS SUMMARY | 2025-06-29 13:30 | XMS_ITS | Encounter Summary ---
Author Organization [facility] Address [address] [place] [address] Phone Care Team Providers Care Funeral Director'S Assistant Name Role Phone Rogelio Niño MD Primary Care Provider + Rogelio Niño MD Primary Care Provider + Sebastián Parra MD Unavailable [phone] Leah Doyle MD Unavailable Yobany Castro MD Primary Care Pr ovider Vanessa Carvajal VOCATIONAL TRAINING DIRECTOR Unavailable [phone] Encounter Details Date Type Department Care Team (Late st Contact Info) Description 2017 Procedure Pass [facility] [address] [place] [address] Social History Tobacco Use Types Packs/Day Years [...] on filedocumented in this encounter Care Teams Funeral Director'S Assistant Relationship Specialty Start Date End Date Rogelio Niño MD [address] [place] [address] [email or web address] PCP - General Internal Medicine 11/16/17 Rogelio Niño MD [address] [place] [address] [email or web address] PCP - General Internal Medicine 06/10/18 09/04/24 Yobany Castro MD [address] [place] [address] PCP - General Family Medicine 09/05/24 Sebastián Parra MD [address] [place] [address] [address] [place] [address] JACKLYN@[facility] Neurosurgery 11/19/19 Leah Doyle MD [address] [place], [place] [address] [address] [email or web address] Radiation Oncology 11/19/19 Vanessa Carvajal FNP [address] [place] [address] [email or web address] Nurse Practitioner Nurse Practitioner 12/08/24 documented as of this encounter Additional Source Comments The information contained in this document represents components of the legal health record. It is not the complete legal health record.[facility]
== END 2025-06-29 12:34 | disposition home or self-care (01) ==
LOC: HO.HOS 11:51
PROVIDERS: PCP Family Medicine; Visit Provider Physical Medicine & Rehabilitation
DX: M79.18 Myalgia, other site (principal)
CPT/HCPCS: 20553

== ENCOUNTER → 2025-06-29 11:51 | Outpatient (BNVA) | payer OTHER, SELFPAY | PROVIDERS: PCP Family Medicine; Visit Provider Physical Medicine & Rehabilitation | DX: M79.18 Myalgia, other site (principal) | CPT/HCPCS: 20553; J2003 ==

== ENCOUNTER 2025-07-05 11:51 | Outpatient (AMB) | payer MEDICAID, SELFPAY ==
--- NOTE | 2025-07-05 11:55 | MHC.OFFVIS ---
Intake Visit Reasons: Trigger Point Inj #3 Intake Note: Dottie is a 54 year old female who presents today for an injection in her upper trapezius trigger point injection #3. Patient states that the last injection did give relief but she feels that the pain moved into her neck. 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 Consent obtained. 2 trigger points palpated on right upper trapezius, 2 on left. Area cleansed with Betadine. Needling performed with gauge 27 needle, subsequently injecting 1 ml of 2% Lidocaine on each site, total of 4 mL. Patient tolerated procedure well. Post-injection instructions given. 19098-Hfccaeg Point Injection 3 or more All charges added?: Procedure code (CPT) selection complete Office Meds lidocaine (PF) 20 mg/mL (2 %) injection solution Performing Provider: Natalia Quintanilla MD Performing Location: [facility] Documented (not given) by: Natalia Quintanilla MD on 07/05/25 12:41 Dose Route Admin Location Dispensed Lot Number Expiration Date ND Dairy Bacteriologist 80 mg subcut mL Total Dispensed Waste n/a n/a Assessment & Plan Assessment & Plan (1) Myofascial pain: Code(s): M79.18 - Myalgia, other site Category: Medical Plan Tolerated procedure well today. Assessment and plan discussed with patient, and patient was agreeable. All questions were answered thoroughly. Follow up 1-2 months. Natalia Quintanilla MD, ELOISA Board Certified, [place] Board of [employer] Medicine and Rehabilitation (ABPMR) Board Certified, [place] Board of Electrodiagnostic Medicine (ABEM) Orders: Orders AMB Trigger Point Injection Today M79.18 - Myalgia, other site Medications: New lidocaine (PF) 80 mg (4 mL) subcut ONCE 4 mL 0RF M79.18 - Myalgia, other site Coding Level of Care Code Procedure Only Diagnoses Myofascial pain M79.18 CPT Codes Therapeutic Injection - Ther Injection 2: 45812-Jnjoisr Point Injection 3 or more ([id number])
--- OUTSIDE RECORDS SUMMARY | 2025-07-05 14:47 | XMS_ITS | Encounter Summary ---
Author Organization [facility] Address [address] [place] [address] Phone Care Team Providers Care Supercalender Operator Name Role Phone Rogelio Niño MD Primary Care Provider + Sebastián Parra MD Unavailable [phone] Leah Doyle MD Unavailable Yobany Castro MD Primary Care Pr ovider Vanessa Carvajal SMOKING PIPES CLEANER Unavailable [phone] Encounter Details Date Type Department Care Team (Late st Contact Info) Description 10/24/2019 Procedure Pass MRI, [facility] - [address] [place] [address] Social History Tobacco Use Types [...] on filedocumented in this encounter Care Teams Supercalender Operator Relationship Specialty Start Date End Date Rogelio Niño MD [address] [place] [address] [email or web address] PCP - General Internal Medicine 06/10/18 09/04/24 Yobany Castro MD [address] [place], [place] [address] [address] PCP - General Family Medicine 09/05/24 Sebastián Parra MD [address] [place] [address] [address] [place] [address] JACKLYN@[email or web address] Neurosurgery 11/19/19 Leah Doyle MD [address] [place], [place] [address] [address] [facility] Radiation Oncology 11/19/19 Vanessa Carvajal FNP [address] [place] [address] [email or web address] Nurse Practitioner Nurse Practitioner 12/08/24 documented as of this encounter Additional Source Comments The information contained in this document represents components of the legal health record. It is not the complete legal health record.[facility]
--- OUTSIDE RECORDS SUMMARY | 2025-07-05 14:47 | XMS_ITS | Encounter Summary ---
Author Organization [facility] Address [address] [place] [address] Phone Care Team Providers Care Tester Semiconductor Packages Name Role Phone Rogelio Niño MD Primary Care Provider + Sebastián Parra MD Unavailable [phone] Leah Doyle MD Unavailable Yobany Castro MD Primary Care Pr ovider Vanessa Carvajal QUALITY ENGINEERING MANAGER Unavailable [phone] Encounter Details Date Type Department Care Team (Late st Contact Info) Description 09/03/2020 Procedure Pass MRI, [facility] - [address] [place] [address] Social History Tobacco Use Types [...] on filedocumented in this encounter Care Teams Tester Semiconductor Packages Relationship Specialty Start Date End Date Rogelio Niño MD [address] [place] [address] [email or web address] PCP - General Internal Medicine 06/10/18 09/04/24 Yobany Castro MD [address] [place], [place] [address] [address] PCP - General Family Medicine 09/05/24 Sebastián Parra MD [address] [place] [address] [address] [place] [address] JACKLYN@[email or web address] Neurosurgery 11/19/19 Leah Doyle MD [address] [place], [place] [address] [address] [facility] Radiation Oncology 11/19/19 Vanessa Carvajal FNP [address] [place] [address] [email or web address] Nurse Practitioner Nurse Practitioner 12/08/24 documented as of this encounter Additional Source Comments The information contained in this document represents components of the legal health record. It is not the complete legal health record.[facility]
--- OUTSIDE RECORDS SUMMARY | 2025-07-05 14:47 | XMS_ITS | Encounter Summary ---
Author Organization [facility] Address [address] [place] [address] Phone Care Team Providers Care Kinesiology Internship Name Role Phone Rogelio Niño MD Primary Care Provider + Sebastián Parra MD Unavailable [phone] Leah Doyle MD Unavailable Yobany Castro MD Primary Care Pr ovider Vanessa Carvajal STATION MECHANIC APPRENTICE Unavailable [phone] Encounter Details Date Type Department Care Team (Late st Contact Info) Description 06/06/2019 Procedure Pass [facility] [address] [place] [address] Social History Tobacco Use Types Packs/Day Years [...] on filedocumented in this encounter Care Teams Kinesiology Internship Relationship Specialty Start Date End Date Rogelio Niño MD [address] [place] [address] [email or web address] PCP - General Internal Medicine 06/10/18 09/04/24 Yobany Castro MD [address] [place], [place] [address] [address] PCP - General Family Medicine 09/05/24 Sebastián Parra MD [address] [place] [address] [address] [place] [address] JACKLYN@[email or web address] Neurosurgery 11/19/19 Leah Doyle MD [address] [place] [address] [facility] Radiation Oncology 11/19/19 Vanessa Carvajal FNP [address] [place] [address] [email or web address] Nurse Practitioner Nurse Practitioner 12/08/24 documented as of this encounter Additional Source Comments The information contained in this document represents components of the legal health record. It is not the complete legal health record.[facility]
--- OUTSIDE RECORDS SUMMARY | 2025-07-05 14:47 | XMS_ITS | Encounter Summary ---
Author Organization [facility] Address [address] [place] [address] Phone Care Team Providers Care Energy And Conservation Technician Name Role Phone Rogelio Niño MD Primary Care Provider + Sebastián Parra MD Unavailable [phone] Leah Doyle MD Unavailable Yobany Castro MD Primary Care Pr ovider Vanessa Carvajal SHODER FILLER Unavailable [phone] Encounter Details Date Type Department Care Team (Late st Contact Info) Description 07/06/2018 Procedure Pass [facility] [address] [place] [address] Social History Tobacco Use Types Packs/Day Years [...] on filedocumented in this encounter Care Teams Energy And Conservation Technician Relationship Specialty Start Date End Date Rogelio Niño MD [address] [place] [address] [email or web address] PCP - General Internal Medicine 06/10/18 09/04/24 Yobany Castro MD [address] [place], [place] [address] [address] PCP - General Family Medicine 09/05/24 Sebastián Parra MD [address] [place] [address] [address] [place] [address] [email or web address] Neurosurgery 11/19/19 Leah Doyle MD [address] [place] [address] [email or web address] Radiation Oncology 11/19/19 Vanessa Carvajal FNP [address] [place] [address] [email or web address] Nurse Practitioner Nurse Practitioner 12/08/24 documented as of this encounter Additional Source Comments The information contained in this document represents components of the legal health record. It is not the complete legal health record.[facility]
--- OUTSIDE RECORDS SUMMARY | 2025-07-05 14:47 | XMS_ITS | Encounter Summary ---
Author Organization [facility] Address [address] [place] [address] Phone Care Team Providers Care Microsoft Bi Consultant Name Role Phone Rogelio Niño MD Primary Care Provider + Sebastián Parra MD Unavailable Leah Doyle MD Unavailable Yobany Castro MD Primary Care Pr ovider Vanessa Carvajal HEAD OF DESIGN Unavailable [phone] Encounter Details Date Type Department Care Team (Late st Contact Info) Description 06/08/2019 Procedure Pass MRI, [facility] - [address] [place] [address] Social History Tobacco Use Types [...] on filedocumented in this encounter Care Teams Microsoft Bi Consultant Relationship Specialty Start Date End Date Rogelio Niño MD [address] [place] [address] [email or web address] PCP - General Internal Medicine 06/10/18 09/04/24 Yobany Castro MD [address] [place] [address] PCP - General Family Medicine 09/05/24 Sebastián Parra MD [address] [place] [address] [address] [place] [address] [email or web address] Neurosurgery 11/19/19 Leah Doyle MD [address] [place] [address] [email or web address] Radiation Oncology 11/19/19 Vanessa Carvajal FNP [address] [place] [address] [email or web address] Nurse Practitioner Nurse Practitioner 12/08/24 documented as of this encounter Additional Source Comments The information contained in this document represents components of the legal health record. It is not the complete legal health record.[facility]
--- OUTSIDE RECORDS SUMMARY | 2025-07-05 14:47 | XMS_ITS | Encounter Summary ---
Author Organization [facility] Address [address] [place] [address] Phone Care Team Providers Care [place] Helper Name Role Phone Rogelio Niño MD Primary Care Provider + Sebastián Parra MD Unavailable [phone] Leah Doyle MD Unavailable Yobany Castro MD Primary Care Pr ovider Vanessa Carvajal HAND MICA PLATE LAYER Unavailable [phone] Encounter Details Date Type Department Care Team (Late st Contact Info) Description 01/03/2019 Procedure Pass [facility] [address] [place] [address] Social History Tobacco Use Types Packs/Day Years [...] on filedocumented in this encounter Care Teams [place] Helper Relationship Specialty Start Date End Date Rogelio Niño MD [address] [place] [phone] [email or web address] PCP - General Internal Medicine 06/10/18 09/04/24 Yobany Castro MD [address] [place], [place] [address] [address] PCP - General Family Medicine 09/05/24 Sebastián Parra MD [address] [place] [address] [address] [place] [address] [email or web address] Neurosurgery 11/19/19 Leah Doyle MD [address] [place] [address] [email or web address] Radiation Oncology 11/19/19 Vanessa Carvajal FNP [address] [place] [address] [email or web address] Nurse Practitioner Nurse Practitioner 12/08/24 documented as of this encounter Additional Source Comments The information contained in this document represents components of the legal health record. It is not the complete legal health record.[facility]
--- OUTSIDE RECORDS SUMMARY | 2025-07-05 14:47 | XMS_ITS | Encounter Summary ---
Author Organization [facility] Address [address] [place] [address] Phone Care Team Providers Care Assistant Family Teacher Name Role Phone Rogelio Niño MD Primary Care Provider + Sebastián Parra MD Unavailable [phone] Leah Doyle MD Unavailable Yobany Castro MD Primary Care Pr ovider Vanessa Carvajal RESIDENTIAL COORDINATOR Unavailable [phone] Encounter Details Date Type Department Care Team (Late st Contact Info) Description 03/05/2020 Procedure Pass MRI, [facility] - [address] [place] [address] Social History Tobacco Use Types [...] on filedocumented in this encounter Care Teams Assistant Family Teacher Relationship Specialty Start Date End Date Rogelio Niño MD [address] [place] [address] [email or web address] PCP - General Internal Medicine 06/10/18 09/04/24 Yobany Castro MD [address] [place], [place] [address] [address] PCP - General Family Medicine 09/05/24 Sebastián Parra MD [address] [place] [address] [address] [place] [address] [email or web address] Neurosurgery 11/19/19 Leah Doyle MD [address] [place], [place] [address] [address] [email or web address] Radiation Oncology 11/19/19 Vanessa Carvajal FNP [address] [place] [address] [email or web address] Nurse Practitioner Nurse Practitioner 12/08/24 documented as of this encounter Additional Source Comments The information contained in this document represents components of the legal health record. It is not the complete legal health record.[facility]
--- OUTSIDE RECORDS SUMMARY | 2025-07-05 14:48 | XMS_ITS | Clinical Summary ---
Author Organization [facility] [address] [place] [address] Address [address] [place] [address] Phone Care Team Providers Care Perfusionist Name Role Phone Yobany Castro MD Primary [...] Not sure if she will obtain routine Plan Manager care here or return to [facility]. [...] coconut oil, soak and seal and follow [facility] guidelines, as well as treat for possible cutaneous candidiasis, and return for vulvar biopsy in 2 weeks. Resolved Problems Problem Noted Date Diagnosed Date Resolved Date Meningioma ([facility] V24, [facility] V28) 11/16/2024 11/16/2024 Encounters Date Type Department Care Team Description 06/22/2025 Results Follow-Up Obstetrics and Gynecology - [address] [place] [address] Britt Romeo RN 06/18/2025 8:45 AM EDT Procedure visit Obstetrics and Gynecology - [address] [place] [address] Marcelina Booth, ASCUS with positive high risk [...] for your loved ones. For example, child life assistant or elderly care for an older adult? [...] 8:00 AM EDT Office Visit Adult Medicine [address] [phone] Yobany Castro MD [address] [place] [address] Health Maintenance Due Date Last Done Comments [...] ASCUS with positive high risk HPV cervical [place] COLPOSCOPY CERVIX INCL UPPER/ADJACENT VAGINA W ENDOCERV [...] squamous intraepithelial lesion 06/21/2025 1:36 PM EDT [facility] at 1336 EDT Clinical Information ASCUS with positive high risk HPV cervical (R87.610, R87.810) 06/21/2025 1:36 PM EDT [facility] Gross Description A. Endocervix, cirettings: Labeled endocervix . Received in formalin, on a brush, is a scant aggregate of clear mucoid material, which is wrapped in paper and submitted in toto in one cassette, multiple pieces, multiple levels (which might fail processing). TS 06/21/2025 1:36 PM EDT [facility] Disclaimer Unless otherwise specified, all tissue is 10% NB formalin fixed and paraffin embedded. 06/21/2025 1:36 PM EDT [facility] Tissue Endocervical structure / Unknown Non-blood Collection / Unknown 06/19/2025 8:09 AM EDT 06/19/2025 8:09 AM EDT us Marcelina Booth DO LAB PATHOLOGY ORDERABLES Anaya l Result [facility] ([facility]) [facility] [address] [place] [address], [place] [phone] * [place] COLPOSCOPY CERVIX INCL UPPER/ADJACENT VAGINA W ENDOCERV CURETTAGE (06/18/2025 9:40 AM EDT) Marcleina Sanchez DO - 06/18/2025 9:40 AM EDT [...] draped in the dorsal lithotomy position: yes [place] speculum was placed in the vagina: yes [...] Hepatitis C antibody (11/28/2024 10:41 AM EDT) [facility] Hepatitis C Antibody Negative Negative LAB CHEMISTRY METHOD 11/28/2024 6:07 PM EDT [facility] Blood Venous blood specimen / Unknown Venipuncture / Unknown 11/28/2024 10:41 AM EDT 11/28/2024 10:41 AM EDT [facility] BLOOD ORDERABLES Final Re sult [facility] [address] [place] [address], [place] [phone] * Lipid panel with reflex to direct LDL (11/28/2024 10:41 AM EDT) [facility] Cholesterol 181 0 - 200 mg/dL LAB CHEMISTRY METHOD 11/28/2024 4:49 PM EDT [facility] Triglycerides 40 0 - 150 mg/dL LAB CHEMISTRY METHOD 11/28/2024 4:49 PM T [facility] HDL 94 >=40 mg/dL LAB CHEMISTRY METHOD 11/28/2024 4:49 PM [facility] LDL Calculated 79 0 - 100 mg/dL LAB CHEMISTRY METHOD 11/28/2024 4:49 PM EDT [facility] VLDL Cholesterol Pete 8 mg/dL LAB CHEMISTRY METHOD 11/28/2024 4:49 PM EDT [facility] Non HDL Chol. (LDL+VLDL) 87 <145 mg/dL LAB CHEMISTRY METHOD [facility] Chol/HDL Ratio 1.9 0.0 - 4.4 LAB CHEMISTRY METHOD 11/28/2024 4:49 PM EDT [facility] Blood Venous blood specimen / Unknown Venipuncture / Unknown 11/28/2024 10:41 AM EDT 11/28/2024 10:41 AM EDT [facility] BLOOD ORDERABLES Final Re sult [facility] ([facility]) [facility] [address] [place] [address], * MG Mammo Digital Screening w Howard bilat (2024 9:39 AM EDT) Anatomical Region Laterality Modality Breast Bilateral Mammography 11/24/2024 8:30 AM EDT Impressions 11/24/2024 8:34 AM EDT No mammographic evidence of malignancy. A negative mammogram in the presence of a clinically suspicious palpable abnormality does not preclude the possibility of malignancy or alter the indications for biopsy. PQRI CPT II 3342F Code 67929, 48306 PQRI 225 CPT II 7025F TISSUE DENSITY: The breasts are heterogeneously dense, which may obscure small masses. (BI-RADS category C) IMPRESSION: Benign. BI-RADS CATEGORY: 2 - BENIGN RECOMMENDATION: Screening bilateral mammogram is recommended in 1 year. Mammo Location: [facility], [address] [place] [address] -------- FINAL REPORT -------- Dictated By: Martínez Waterman Dictated Date: 11/24/2024 08:30 ET Assigned Physician: Martínez Waterman Reviewed and Electronically Signed By: Martínez Waterman Signed Date: 11/24/2024 08:34 ET Workstation ID: [id number] Transcribed By: Self Edit Transcribed Date: 11/24/2024 [...] for biopsy. PQRI CPT II 3342F Code 77609, 64257 PQRI 225 CPT II 7025F TISSUE DENSITY: The breasts are heterogeneously dense, which may obscuresmall masses. (BI-RADS category C) IMPRESSION: Benign. BI-RADS CATEGORY: 2 - BENIGN RECOMMENDATION: Screening bilateral mammogram is recommended in 1 year. Mammo Location: [facility], [address] [place] [address] -------- FINAL REPORT -------- Dictated By: Martínez Waterman Dictated Date: 11/24/2024 08:30 ET Assigned Physician: Martínez Waterman Reviewed and Electronically Signed By: Martínez Waterman Signed Date: 11/24/2024 08:34 ET Workstation ID: [id number] Transcribed By: Self Edit Transcribed Date: 11/24/2024 08:30 ET [facility] BI PROCEDURES Final Resul t from Last 3 Months or Most Recently Relevant to Health Maintenance Insurance [employer] Care Teams Perfusionist Relationship Specialty Start Date End Date Yobany Castro MD [address] [place] [address] PCP - General Internal Medicine 11/16/24
--- OUTSIDE RECORDS SUMMARY | 2025-07-05 14:48 | XMS_ITS | Patient Health Record ---
Author Organization [facility] Address [address] [place] [address] Care Team Providers Care Medical Coding Auditor Name Role Phone Jimmy Malagon Primary Care [...] Start Date Coverage End Date [employer] [facility] BCBS [address] [place] [id number] Dottie Enciso Self - patient is the insured Medical (General) History Surgical History Surgery Date(Month/Year) The patient has had no prior surgeries The patient has had no prior surgeries 2017-08-17
--- OUTSIDE RECORDS SUMMARY | 2025-07-05 14:48 | XMS_ITS | Encounter Summary ---
Author Organization [facility] Address [address] [place] [address] Phone Care Team Providers Care Clinical Instructor Name Role Phone Rogelio Niño MD Primary Care Provider + Sebastián Parra MD Unavailable [phone] Leah Doyle MD Unavailable Yobany Castro MD Primary Care Pr ovider Vanessa Carvajal QC SCIENTIST Unavailable [phone] Encounter Details Date Type Department Care Team (Late st Contact Info) Description 11/21/2019 Procedure Pass MRI, [facility] Imaging - [address], [address] [place] [address] Social History Tobacco Use Types [...] on filedocumented in this encounter Care Teams Clinical Instructor Relationship Specialty Start Date End Date Rogelio Niño MD [address] [place] [address] [email or web address] PCP - General Internal Medicine 06/10/18 09/04/24 Yobany Castro MD [address] [place], [place] [address] [address] PCP - General Family Medicine 09/05/24 Sebastián Parra MD [address] [place] [address] [address] [place] [address] [email or web address] Neurosurgery 11/19/19 Leah Doyle MD [address] [place], [place] [address] [address] [email or web address] Radiation Oncology 11/19/19 Vanessa Carvajal FNP [address] [place] [address] [email or web address] Nurse Practitioner Nurse Practitioner 12/08/24 documented as of this encounter Additional Source Comments The information contained in this document represents components of the legal health record. It is not the complete legal health record.[facility]
--- OUTSIDE RECORDS SUMMARY | 2025-07-05 14:48 | XMS_ITS | Encounter Summary ---
Author Organization [facility] Address [address] [place] [address] Phone Care Team Providers Care Theatre Professor Name Role Phone Rogelio Niño MD Primary Care Provider + Sebastián Parra MD Unavailable [phone] Leah Doyle MD Unavailable Yobany Castro MD Primary Care Pr ovider Vanessa Carvajal MANUFACTURING SPECIALIST Unavailable [phone] Encounter Details Date Type Department Care Team (Late st Contact Info) Description 07/05/2024 Procedure Pass MRI, [facility] - [address], [address] [place] [address] Social History Tobacco Use [...] on filedocumented in this encounter Care Teams Theatre Professor Relationship Specialty Start Date End Date Rogelio Niño MD [address] [place] [address] [email or web address] PCP - General Internal Medicine 06/10/18 09/04/24 Yobany Castro MD [address] [place] [address] PCP - General Family Medicine 09/05/24 Sebastián Parra MD [address] [place] [address] [address] [place] [address] JACKLYN@[email or web address] Neurosurgery 11/19/19 Leah Doyle MD [address] [place], [place] [address] [address] [facility] Radiation Oncology 11/19/19 Vanessa Carvajal FNP [address] [place] [address] [email or web address] Nurse Practitioner Nurse Practitioner 12/08/24 documented as of this encounter Additional Source Comments The information contained in this document represents components of the legal health record. It is not the complete legal health record.[facility]
--- OUTSIDE RECORDS SUMMARY | 2025-07-05 14:48 | XMS_ITS | Encounter Summary ---
Author Organization [facility] Address [address] [place] [address] Care Team Providers Care Heading Saw Operator Name Role Phone Yobany Castro MD Primary Care Pr ovider Encounter Details Date Type Department Care Team (Late st Contact Info) Description 06/22/2025 Results Follow-Up Obstetrics and Gynecology - [address] [place] [phone] Birtt Romeo RN Social History Tobacco Use Types [...] for your loved ones. For example, child nutrition assistant or elderly care for an older [...] 8:00 AM EDT Office Visit Adult Medicine [address] [address] Yobany Castro MD [address] [place] [phone] documented as of this encounter Visit Diagnoses Not on filedocumented in this encounter Additional Health Concerns Assessment Noted Time PHQ-9 Depression Total Score: 0 06/11/20 10:28 AM EDT documented as of this encounter Care Teams Heading Saw Operator Relationship Specialty Start Date End Date Yobany Castro MD [address] [place] [address] PCP - General Internal Medicine 11/16/24 documented as of this encounter
--- OUTSIDE RECORDS SUMMARY | 2025-07-05 14:49 | XMS_ITS | Encounter Summary ---
Author Organization [facility] Address [address] [place] [address] Phone Care Team Providers Care Religious Healer Name Role Phone Rogelio Niño MD Primary Care Provider + Rogelio Niño MD Primary Care Provider + Sebastián Parra MD Unavailable [phone] Leah Doyle MD Unavailable Yobany Castro MD Primary Care Pr ovider Vanessa Carvajal WEBSPHERE PORTAL ARCHITECT Unavailable [phone] Encounter Details Date Type Department Care Team (Late st Contact Info) Description 11/25/2017 Procedure Pass MRI, [facility] Imaging - [address], [address] [place] [id number] Social History Tobacco Use Types Packs/Day Years [...] on filedocumented in this encounter Care Teams Religious Healer Relationship Specialty Start Date End Date Rogelio Niño MD [address] [place] [address] [email or web address] PCP - General Internal Medicine 11/16/17 Rogelio Niño MD [address] [place] [address] [email or web address] PCP - General Internal Medicine 06/10/18 09/04/24 Yobany Castro MD [address] [place], [place] [address] [address] PCP - General Family Medicine 09/05/24 Sebastián Parra MD [address] [facility] [address] [place] [address] JACKLYN@[email or web address] Neurosurgery 11/19/19 Leah Doyle MD [address] [place], [place] [address] [place] [address] [email or web address] Radiation Oncology 11/19/19 Vanessa Carvajal FNP [address] [place] [address] [email or web address] Nurse Practitioner Nurse Practitioner 12/08/24 documented as of this encounter Additional Source Comments The information contained in this document represents components of the legal health record. It is not the complete legal health record.[facility]
--- OUTSIDE RECORDS SUMMARY | 2025-07-05 14:49 | XMS_ITS | Clinical Summary ---
Author Organization [facility] Address [address] [place] [address] Phone Care Team Providers Care Water Plumber Name Role Phone Sebastián Parra MD Unavailable [phone] Leah Doyle MD Unavailable Yobany Csatro MD Primary Care Pr ovider Vanessa Carvajal CAR REPAIRER PULLMAN Unavailable [phone] Allergies Active Allergy Reactions Criticality Noted Date [...] this topic Medical Devices Implanted Type Area Manager House Device Identifier Shelf Expiration Date Model / Serial / Lot Nodata NODATA Nose Description:Consented on 09/30 10/20 nose piercing [id number] Screw Bone 1.5x4mm Ti Self Drilling Matrixneuro Pk/5ea - [id number] Implanted:Qty: 13 on 10/10/2019 by Sebastián Parra MD at [facility] NODATA Right: Cranial SYNTHES 04.503.1 04.05 / / Mirena Iud Uterus Matrix Dura 3x3in Onlay Plus - [id number] Implanted:Qty: 1 on 10/10/2019 by Sebastián Parra MD at [facility] Right: Cranial ÓSCAR CRANIOMAXILLOFACIAL DI 06/29/2022 [id number] / / [id number] Plate .3x12mm 2 Hole Cranial Matrixneuro Titanium Straight [place] Space Ultra Low Profile Thick - [id number] Implanted:Qty: 1 on 10/10/2019 by Sebastián Parra MD at [facility] Right: Cranial SYNTHES 04.502.0 62 / / Cover Gilliam 17mm Hole Cranial Matrixneuro Titanium Ultra Low Profile - [id number] Implanted:Qty: 3 on 10/10/2019 by Sebastián Parra MD at [facility] Right: Cranial SYNTHES 04.502.0 23 / / Insurance [facility] PCP ESTRELAL POP CONNECTORCARE [facility]ER[place]ENSE NON NSPG PCP SILVER CLARITY CONNECTORCARE [facility] NON NSPG PCP S[place]ITY CONNECTORCARE [facility] NON NSPG PCP SILVER CLARITY CONNECTORCARE [place]ERALENSE NON NSPG PCP [facility] CONNECTORCARE MINERALENSE NON NSPG PCP [facility] CONNECTORCARE Advance Directives For more information, please contact: [phone] (9AM - 5PM Leonie/[facility], Wednesday-Wednesday) * Full Code (Presumed) (Latest Code Status on File) Date Activated Date Inactivated Comments 10/10/2019 11:40 AM 10/12/2019 4:08 PM Care Teams Water Plumber Relationship Specialty Start Date End Date Yobany Castro MD [address] [place], [place] [address] [address] PCP - General Family Medicine 09/05/24 Sebastián Parra MD [address] [place] [address] [address] [place] [address] [email or web address] Neurosurgery 11/19/19 Leah Doyle MD [address] [place], [place] [address] [address] [email or web address] Radiation Oncology 11/19/19 Vanessa Carvajal FNP [address] [place] [address] [email or web address] Nurse Practitioner Nurse Practitioner 12/08/24 Additional Source Comments The information contained in this document represents components of the legal health record. It is not the complete legal health record.[facility]
--- OUTSIDE RECORDS SUMMARY | 2025-07-05 14:49 | XMS_ITS | Patient Health Record ---
Author Organization [facility] Address [address] [place] [address] Care Team Providers Care Publishing Editor Name Role Phone SARITA MARRERO Unavailable [phone] Allergies Allergen (clinical drug ingredient) Drug/Non Drug Allergy documented on EMR Reaction Allergy Type Onset Date Status trees (uncoded) Unknown Allergy Acti ve Lanolin Unknown Drug Allergy Active Results Component Value Reference Range Flag Notes PDF Report Reviewed date:05/03/2025 08:57:20 AM Interpretation: Performing Lab:[facility], [address] [place] [address], Phone - [phone], Director - MDMoore Notes/Report: No. of containers..01 ThinPrep Vial Clinical Information:[id number] IGP, Apt HPV,rfx 16/18,45-19 9344 Reviewed date:05/04/2025 08:26:06 AM Interpretation:ASCUS/HPV positive Performing Lab:[facility], [address] [place] [address], Phone - [phone], Director - MDMoore Notes/Report: Clinical Information:[id number] No. of containers..01 ThinPrep Vial Clinical Information:[id number] No. of containers..01 ThinPrep Vial DIAGNOSIS: A EPITHELIAL CELL ABNORMALITY. ATYPICAL SQUAMOUS CELLS OF UNDETERMINED SIGNIFICANCE (ASC-US). Specimen adequacy: Satisfactory for evaluation. Endocervical and/or squamous metaplastic cells (endocervical component) are present. Clinician provided ICD10: Z01.419 Z11.51 Performed by: Tom razo, Parachute Line Tier (ASCP) Electronically signed by: Dana Lang MD, [...] Unspecif ied Abnormal findings (R87.619) Referral Organization [facility] Referring Provider First Name SARITA Referring Provider Last Name EVA Referring Provider Speciality Nurse Prac titioner Referred Provider Specialty Reed Cleaner General Notes 54 year old AFAB per son with most recent PAP 03/2025- ASCUS/HPV positive (negative 16/18). Due for colpo as per ASCCP guidelines. Please schedule accordingly. See below for previous PAP results. Thank you, Sarita Marrero SUPERVISOR ACOUSTICAL TILE CARPENTERS, 02/2024- NIL/HPV positive (neg 16/18). Due for [...] Status Risk Notes Problem Atrophy of vulva (279228826) Atrophy of vulva (N90.5) Active confirmed Problem Menopausal symptom (29490786) Menopausal symptoms (N95.1) Active confirmed Vital Signs Blood pressure diastolic 60 mm Hg 04/25/2025 Height 64 in 04/25/2025 Blood pressure systolic 116 mm Hg 04/25/2025 Weight 133.2 lbs 04/25/2025 BMI 22.86 kg/m2 04/25/2025 Encounters Encounter Location Date Provider Diagnosis [facility] [address] [place], [place] [id number] 04/25/2025 SARITA GABAI Encounter for gynecological examination (general) (routine) without abnormal findings Z01.419 ; Encounter for screening for human papillomavirus (HPV) Z11.51 and Counseling, unspecified Z71.9 [facility] [address] [place], [place] [id number] 07/04/2025 SARITA GABAI [facility] [address] [place], [place] [id number] 09/11/2024 SARITA GABAI [facility] [address] [place], [place] [id number] 05/02/2025 SARITA GABAI [facility] [address] [place], [place] [id number] 04/30/2025 SARITA GABAI Assessments Encounter Date Diagnosis [...] Insured Coverage Start Date Coverage End Date [facility] [employer] [address] [address] [place], [place] [id number] Dottie Enciso Self - patient is the insured Medical (General) History Medical History History ICD Code Migraines- Occipital neuralgia VVC Meningioma incidentally diagnosed on MRI , surgery and radiation 2020 Abnormal PAP Surgical History Surgery Date(Month/Year) nerve decompression for migraines
--- OUTSIDE RECORDS SUMMARY | 2025-07-05 14:49 | XMS_ITS | Encounter Summary ---
Author Organization [facility] Address [address] [place] [address] Phone Care Team Providers Care Workgroup Leader Name Role Phone Rogelio Niño MD Primary Care Provider + Sebastián Parra MD Unavailable [phone] Leah Doyle MD Unavailable Yobany Castro MD Primary Care Pr ovider Vanessa Carvajal WATER QUALITY ANALYST Unavailable [phone] Encounter Details Date Type Department Care Team (Late st Contact Info) Description 02/17/2021 Procedure Pass MRI, [facility] Imaging - [address], [address] [place] [address] Social History Tobacco Use Types [...] on filedocumented in this encounter Care Teams Workgroup Leader Relationship Specialty Start Date End Date Rogelio Niño MD [address] [place] [address] [email or web address] PCP - General Internal Medicine 06/10/18 09/04/24 Yobany Castro MD [address] [place], [place] [address] [address] PCP - General Family Medicine 09/05/24 Sebastián Parra MD [address] [place] [address] [address] [place] [address] [email or web address] Neurosurgery 11/19/19 Leah Doyle MD [address] [place], [place] [address] [address] [email or web address] Radiation Oncology 11/19/19 Vanessa Carvajal FNP [address] [place] [address] [email or web address] Nurse Practitioner Nurse Practitioner 12/08/24 documented as of this encounter Additional Source Comments The information contained in this document represents components of the legal health record. It is not the complete legal health record.[facility]
--- OUTSIDE RECORDS SUMMARY | 2025-07-05 14:49 | XMS_ITS | Encounter Summary ---
Author Organization [facility] Address [address] [place] [address] Phone Care Team Providers Care Alum Mixer Name Role Phone Rogelio Niño MD Primary Care Provider + Sebastián Parra MD Unavailable [phone] Leah Doyle MD Unavailable Yobany Castro MD Primary Care Pr ovider Vanessa Carvajal STILL OPERATOR Unavailable Encounter Details Date Type Department Care Team (Late st Contact Info) Description 10/10/2019 Procedure Pass [facility] PERIOPERATIVE DEPT [address] [place] [phone] Social History Tobacco Use Types Packs/Day Years [...] on filedocumented in this encounter Care Teams Alum Mixer Relationship Specialty Start Date End Date Rogelio Niño MD [address] [place] [address] [email or web address] PCP - General Internal Medicine 06/10/18 09/04/24 Yobany Castro MD [address] [place], [place] [address] [address] PCP - General Family Medicine 09/05/24 Sebastián Parra MD [address] [place] [address] [address] [place] [address] [email or web address] Neurosurgery 11/19/19 Leah Doyle MD [address] [place], [place] [address] [address] [email or web address] Radiation Oncology 11/19/19 Vanessa Carvajal FNP [address] [place] [address] [email or web address] Nurse Practitioner Nurse Practitioner 12/08/24 documented as of this encounter Additional Source Comments The information contained in this document represents components of the legal health record. It is not the complete legal health record.[facility]
--- OUTSIDE RECORDS SUMMARY | 2025-07-05 14:49 | XMS_ITS | Patient Health Record ---
Author Organization [facility] Address [address] [place] [address] Care Team Providers Care Semiconductors Wafer Breaker Name Role Phone Rogelio Niño MD Primary Care Provider Samia Kaur Unavailable [phone] Reason For Referral No Information Medications Medication [...] Problem Acquired hammer toe of right foot (9671259420460 105) Hammer toe of right foot (M20.41) Active confirmed Problem Acquired hammer toe of left foot (1353582527196 103) Hammer toe of left foot (M20.42) Active confirmed Encounters Encounter Location Date Provider Diagnosis [facility] [address] [place] [address] 07/03/2025 Samia Garcia Plan Of Treatment No Information Medical (General) History Medical History History ICD Code Back,Hip,and Knee pain Headaches/Migraines Chicken pox Meningioma ST joint issues
--- OUTSIDE RECORDS SUMMARY | 2025-07-05 14:49 | XMS_ITS | Encounter Summary ---
Author Organization [facility] Address [address] [place] [address] Phone Care Team Providers Care Systems Engineering Manager Name Role Phone Rogelio Niño MD Primary Care Provider + Sebastián Parra MD Unavailable [phone] Leah Doyle MD Unavailable Yobany Castro MD Primary Care Pr ovider Vanessa Carvajal INNER TUBE CUTTER Unavailable [phone] Encounter Details Date Type Department Care Team (Late st Contact Info) Description 12/31/2021 Procedure Pass MRI, [facility] Imaging - [address] [place] [address] Social History Tobacco Use Types [...] on filedocumented in this encounter Care Teams Systems Engineering Manager Relationship Specialty Start Date End Date Rogelio Niño MD [address] [place] [address] [email or web address] PCP - General Internal Medicine 06/10/18 09/04/24 Yobany Castro MD [address] [place], [place] [address] [address] PCP - General Family Medicine 09/05/24 Sebastián Parra MD [address] [place] [address] [address] [place] [address] [email or web address] Neurosurgery 11/19/19 Leah Doyle MD [address] [place], [place] [address] [address] [email or web address] Radiation Oncology 11/19/19 Vanessa Carvajal FNP [address] [place] [address] [email or web address] Nurse Practitioner Nurse Practitioner 12/08/24 documented as of this encounter Additional Source Comments The information contained in this document represents components of the legal health record. It is not the complete legal health record.[facility]
--- OUTSIDE RECORDS SUMMARY | 2025-07-05 14:50 | XMS_ITS | Encounter Summary ---
Author Organization [facility] Address [address] [place] [address] Phone Care Team Providers Care Account Executive Metalworking Name Role Phone Rogelio Niño MD Primary Care Provider + Rogelio Niño MD Primary Care Provider + Sebastián Parra MD Unavailable [phone] Leah Doyle MD Unavailable Yobany Castro MD Primary Care Pr ovider Vanessa Carvajal GEOPHYSICAL SUPPORT SPECIALIST Unavailable [phone] Encounter Details Date Type Department Care Team (Late st Contact Info) Description 06/07/2018 Procedure Pass [facility] PERIOPERATIVE DEPT [address] [place] [phone] Social History Tobacco Use Types Packs/Day Years [...] on filedocumented in this encounter Care Teams Account Executive Metalworking Relationship Specialty Start Date End Date Rogelio Niño MD [address] [place] [address] [email or web address] PCP - General Internal Medicine 11/16/17 Rogelio Niño MD [address] [place] [address] [email or web address] PCP - General Internal Medicine 06/10/18 09/04/24 Yobany Castro MD [address] [place], [place] [address] [address] PCP - General Family Medicine 09/05/24 Sebastián Parra MD [address] [place] [address] [address] [place] [address] [email or web address] Neurosurgery 11/19/19 Leah Doyle MD [address] [place], [place] [address] [address] [email or web address] Radiation Oncology 11/19/19 Vanessa Carvajal FNP [address] [place] [address] [email or web address] Nurse Practitioner Nurse Practitioner 12/08/24 documented as of this encounter Additional Source Comments The information contained in this document represents components of the legal health record. It is not the complete legal health record.[facility]
--- OUTSIDE RECORDS SUMMARY | 2025-07-05 14:50 | XMS_ITS | Encounter Summary ---
Author Organization [facility] Address [address] [place] [address] Phone Care Team Providers Care Radiology Clerk Name Role Phone Rogelio Niño MD Primary Care Provider + Rogelio Niño MD Primary Care Provider + Sebastián Parra MD Unavailable [phone] Leah Doyle MD Unavailable Yobany Castro MD Primary Care Pr ovider Vanessa Carvajal MOBILE HOME MECHANIC Unavailable [phone] Encounter Details Date Type Department Care Team (Late st Contact Info) Description 2017 Procedure Pass [facility] Imaging [address] [place] [address] Social History Tobacco Use Types Packs/Day Years [...] on filedocumented in this encounter Care Teams Radiology Clerk Relationship Specialty Start Date End Date Rogelio Niño MD [address] [place] [address] [email or web address] PCP - General Internal Medicine 11/16/17 Rogelio Niño MD [address] [place] [address] [email or web address] PCP - General Internal Medicine 06/10/18 09/04/24 Yobany Castro MD [address] [place] [address] PCP - General Family Medicine 09/05/24 Sebastián Parra MD [address] [place] [address] [address] [place] [address] [email or web address] Neurosurgery 11/19/19 Leah Doyle MD [address] [place], [place] [address] [address] [email or web address] Radiation Oncology 11/19/19 Vanessa Carvajal FNP [address] [place] [address] [email or web address] Nurse Practitioner Nurse Practitioner 12/08/24 documented as of this encounter Additional Source Comments The information contained in this document represents components of the legal health record. It is not the complete legal health record.[facility]
== END 2025-07-05 12:16 | disposition home or self-care (01) ==
LOC: HO.HOS 11:51
PROVIDERS: PCP Family Medicine; Visit Provider Physical Medicine & Rehabilitation
DX: M79.18 Myalgia, other site (principal)
CPT/HCPCS: 20553

== ENCOUNTER → 2025-07-05 11:51 | Outpatient (BNVA) | payer OTHER, SELFPAY | PROVIDERS: PCP Family Medicine; Visit Provider Physical Medicine & Rehabilitation | DX: M79.18 Myalgia, other site (principal) | CPT/HCPCS: 20553; J2003 ==

== ENCOUNTER 2025-07-18 09:39 | Outpatient (REF) | payer OTHER, SELFPAY ==
--- NOTE | ~2025-07-18 | XR_ITS ---
EXAMINATION: XR FOOT, BILATERAL CLINICAL INFORMATION: M79.671 - Pain in right foot COMPARISON: None available. TECHNIQUE: AP, lateral, and oblique views with weightbearing both feet. FINDINGS: Loss of the plantar arch, bilaterally. No acute cortical disruption or malalignment. Hallux valgus deformities, first metatarsophalangeal joint more pronounced on the left foot No plantar calcaneus spur. No gross joint effusion. No lytic or blastic lesions. No bony erosions. No subcutaneous emphysema.. XR/XR Foot Shravan 3V IMPRESSION: Pes planus, bilaterally. Hallux valgus deformities, left greater than the right foot. Electronically signed by: Abdiel Jimenes MD 07/18/2025 11:33 AM MACIEL
== END 2025-07-18 09:40 | disposition home or self-care (01) ==
LOC: HO.XRAY 09:39
PROVIDERS: PCP Family Medicine; Visit Provider Student in an Organized Health Care Education/Training Program
DX: M20.11 Hallux valgus (acquired), right foot (principal); M20.12 Hallux valgus (acquired), left foot; Z79.1 Long term (current) use of non-steroidal anti-inflammatories (NSAID)
CPT/HCPCS: 73630; 99202

== ENCOUNTER 2025-07-18 09:39 | Outpatient (AMB) | payer OTHER, SELFPAY ==
[2025-07-18 09:56] VITALS: BMI 22.8
--- NOTE | 2025-07-18 09:56 | MHC.OFFVIS ---
Vital Signs 07/18/25 09:56 Height 5 ft 4 in Weight 133 lb BMI 22.8 Intake Visit Reasons: Foot Cramps Intake Note: Dottie is a 54 year old female who presents today as a new patient for an evaluation of her bilateral foot cramp. Patient reports this has been going on for 5 months and has worsened in the past 3 months. She has tried stretching, icy hot, magnesium spray and has found no relief for her symptoms. Patient mentions she notes her bunions has worsened recently as well. Allergies No Known Allergies Allergy (Verified 06/15/25 09:09) HPI Comments Details: The patient is a 54-year-old female with a past medical history as seen below presenting with bilateral foot pain and cramps associated with bunions. The bunions have been progressively worsening, with the patient experiencing increased joint pain and cracking sensations, worse to the left foot. The patient has not had any recent imaging studies to assess the severity of the bunion. The foot cramps have been present for approximately six months, with a noted increase in severity. The patient is an avid hiker, which may contribute to the stress on her feet, although she has been hiking for 12 years without prior issues. The patient has attempted various conservative measures, including the use of toe socks, bunion sleeves, toe separators, and changes her footwear, to alleviate symptoms. Despite these efforts, the symptoms persist, leading to consideration of surgical options. She denies any recent pedal injuries. She denies any other pedal concerns. 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 All systems reviewed & are unremarkable except as noted in HPI and below Physical Exam Vital Signs: BMI result Body Mass Index 22.8 Extrem Other: Bilateral lower extremity focused physical exam: Derm: No open lesions abrasions or wounds noted. No clinical signs of infection. No ecchymosis or discoloration noted. No hyperkeratotic lesions or areas noted. No interdigital maceration noted. Toenails within normal limits. Vascular: DP/PT pulses palpable. Capillary refill time less than 3 seconds. Temperature gradient warm to warm. Pedal hair absent. No varicosities noted. No edema noted. Neuro: Protective sensation is grossly intact. MSK: Pain on palpation to medial prominences of the 1st metatarsal heads bilaterally, worse to the left foot, extending towards the shaft of the 1st metatarsals. Tracking HAV noted bilaterally, worse on left. Crepitus noted with left 1st MPJ range of motion. Range of motion of remaining forefoot within normal limits. Range of motion of hindfoot and ankles within normal limits. Mildly antalgic gait noted unassisted. Results Reviewed Results Reviewed: Ordered bilateral foot weightbearing three-view x-rays to be performed prior to next visit. Assessment & Plan Assessment & Plan (1) Bilateral foot pain: Code(s): M79.671 - Pain in right foot; M79.672 - Pain in left foot Category: Medical (2) Hallux abducto valgus, bilateral: Code(s): M20.11 - Hallux valgus (acquired), right foot; M20.12 - Hallux valgus (acquired), left foot Category: Medical Plan Patient was informed and verbally consented to the use of an ambient scribe for clinic note documentation during this visit. I discussed with the patient the nature of her bunion and the associated symptoms, including the potential need for surgical intervention if conservative measures fail. We reviewed the types of bunion surgeries available, including the risks and benefits of each. I emphasized the importance of obtaining x-rays to guide the decision-making process. We also discussed the continuation of conservative treatments and the plan to reassess in two to three weeks after obtaining imaging results. - Ordered B/L foot x-rays to be performed prior to next visit. - Continue conservative management with appropriate footwear, toe socks, and bunion sleeves to alleviate symptoms. - Continue taking tfxm-fwq-awquuiy ibuprofen and/or Tylenol for pain relief. - Consider surgical intervention for the bunion if conservative measures fail to provide relief and symptoms impede daily activities. - Avoid barefoot walking and wear supportive shoe gear with a wide toe box. RTC in 2 weeks. Orders: Orders XR Foot Shravan 3V 07/18/25 M20.11 - Hallux valgus (acquired), right foot, M20.12 - Hallux valgus (acquired), left foot, M79.671 - Pain in right foot, M79.672 - Pain in left foot Coding Level of Care Code New Pt Level 4 (37281) Diagnoses Bilateral foot pain M79.671; M79.672 Hallux abducto valgus, bilateral M20.11; M20.12 Time Spent (min) 46
--- OUTSIDE RECORDS SUMMARY | 2025-07-18 17:51 | XMS_ITS | Patient Health Record ---
Author Organization [facility] Address [address] [place] [address] Care Team Providers Care Word Processing Specialist Name Role Phone Jimmy Malagon Primary Care [...] Start Date Coverage End Date BCBS OF [facility] [address] [place] [id number] Dottie Enciso Self - patient is the insured Medical (General) History Surgical History Surgery Date(Month/Year) The patient has had no prior surgeries The patient has had no prior surgeries 2017-08-17
--- OUTSIDE RECORDS SUMMARY | 2025-07-18 17:51 | XMS_ITS | Patient Health Record ---
Author Organization [facility] Address [address] [place] [address] Care Team Providers Care Assurance Senior Manager Name Role Phone SARITA MARRERO Unavailable [phone] Allergies Allergen (clinical drug ingredient) Drug/Non Drug Allergy documented on EMR Reaction Allergy Type Onset Date Status trees (uncoded) Unknown Allergy Acti ve Lanolin Unknown Drug Allergy Active Results Component Value Reference Range Flag Notes PDF Report Reviewed date:05/03/2025 08:57:20 AM Interpretation: Performing Lab:[facility], [address] [place] [address], Phone - [phone], Director - MDMoore Notes/Report: No. of containers..01 ThinPrep Vial Clinical Information:[id number] IGP, Apt HPV,rfx 16/18,45-19 9344 Reviewed date:05/04/2025 08:26:06 AM Interpretation:ASCUS/HPV positive Performing Lab:[facility], [address] [place] [address], Phone - [phone], Director - MDMoore Notes/Report: Clinical Information:[id number] No. of containers..01 ThinPrep Vial Clinical Information:[id number] No. of containers..01 ThinPrep Vial DIAGNOSIS: A EPITHELIAL CELL ABNORMALITY. ATYPICAL SQUAMOUS CELLS OF UNDETERMINED SIGNIFICANCE (ASC-US). Specimen adequacy: Satisfactory for evaluation. Endocervical and/or squamous metaplastic cells (endocervical component) are present. Clinician provided ICD10: Z01.419 Z11.51 Performed by: Tom razo, Sales And Catering Coordinator (ASCP) Electronically signed by: Dana Lang MD, [...] Unspecif ied Abnormal findings (R87.619) Referral Organization [facility] Referring Provider First Name SARITA Referring Provider Last Name EVA Referring Provider Speciality Nurse Prac titioner Referred Provider Specialty Administrative Support Assoc General Notes 54 year old AFAB per son with most recent PAP 03/2025- ASCUS/HPV positive (negative 16/18). Due for colpo as per ASCCP guidelines. Please schedule accordingly. See below for previous PAP results. Thank you, Sarita Marrero MASH GRINDER, 02/2024- NIL/HPV positive (neg 16/18). Due for [...] Status Risk Notes Problem Atrophy of vulva (931640313) Atrophy of vulva (N90.5) Active confirmed Problem Menopausal symptom (67887222) Menopausal symptoms (N95.1) Active confirmed Vital Signs Blood pressure diastolic 60 mm Hg 04/25/2025 Height 64 in 04/25/2025 Blood pressure systolic 116 mm Hg 04/25/2025 Weight 133.2 lbs 04/25/2025 BMI 22.86 kg/m2 04/25/2025 Encounters Encounter Location Date Provider Diagnosis [facility] [address] [place], [place] [id number] 04/25/2025 SARITA GABAI Encounter for gynecological examination (general) (routine) without abnormal findings Z01.419 ; Encounter for screening for human papillomavirus (HPV) Z11.51 and Counseling, unspecified Z71.9 [facility] [address] [place], [place] [id number] 09/11/2024 SARITA GABAI [facility] [address] [place], [place] [id number] 05/02/2025 SARITA GABAI [facility] [address] [place], [place] [id number] 07/04/2025 SARITA GABAI [facility] [address] [place], [place] [id number] 04/30/2025 SARITA GABAI Assessments Encounter Date Diagnosis [...] Insured Coverage Start Date Coverage End Date [facility] [address] [address] [place], [place] [id number] Dottie Enciso Self - patient is the insured Medical (General) History Medical History History ICD Code Migraines- Occipital neuralgia VVC Meningioma incidentally diagnosed on MRI , surgery and radiation 2020 Abnormal PAP Surgical History Surgery Date(Month/Year) nerve decompression for migraines
--- OUTSIDE RECORDS SUMMARY | 2025-07-18 17:51 | XMS_ITS | Patient Health Record ---
Author Organization [facility] Address [address] [place] [address] Care Team Providers Care Helminthologist Name Role Phone Rogelio Niño MD Primary Care Provider Samia Kaur Unavailable [phone] Reason For Referral No Information Medications Medication [...] Problem Acquired hammer toe of right foot ([id number] 105) Hammer toe of right foot (M20.41) Active confirmed Problem Acquired hammer toe of left foot (0859789135755 103) Hammer toe of left foot (M20.42) Active confirmed Encounters Encounter Location Date Provider Diagnosis [facility] [address] [place] [address] 07/03/2025 Samia Garcia Plan Of Treatment No Information Medical (General) History Medical History History ICD Code Back,Hip,and Knee pain Headaches/Migraines Chicken pox Meningioma ST joint issues
== END 2025-07-18 10:13 | disposition home or self-care (01) ==
LOC: HO.HPODS 09:39
PROVIDERS: PCP Family Medicine; Visit Provider Student in an Organized Health Care Education/Training Program
DX: M79.671 Pain in right foot (principal); M79.672 Pain in left foot; M20.11 Hallux valgus (acquired), right foot; M20.12 Hallux valgus (acquired), left foot
CPT/HCPCS: 99204

== ENCOUNTER → 2025-07-18 10:36 | Outpatient (BNV) | payer OTHER, SELFPAY | PROVIDERS: PCP Family Medicine; Visit Provider Radiology Diagnostic Radiology | DX: M21.41 Flat foot [pes planus] (acquired), right foot (principal); M21.42 Flat foot [pes planus] (acquired), left foot; M20.11 Hallux valgus (acquired), right foot; M20.12 Hallux valgus (acquired), left foot | CPT/HCPCS: 73630 ==

== ENCOUNTER 2025-08-01 09:19 | Outpatient (AMB) | payer OTHER, SELFPAY ==
[2025-08-01 09:29] VITALS: BMI 22.8
--- NOTE | 2025-08-01 09:29 | MHC.OFFVIS ---
Vital Signs 08/01/25 09:29 Height 5 ft 4 in Weight 133 lb BMI 22.8 Intake Visit Reasons: f/u xrays; B/L bunions and foot cramps Intake Note: Dottie is a 54 year old female who presents today for a follow up on her bilateral bunion and foot cramps. At her last visit she was advised to utilize appropriate footwear, toe socks, and bunion sleeves to alleviate symptoms. She was informed to continue taking OTC Tylenol or ibuprofen as needed to help manage her pain. X rays were ordered and results are all set in patients chart. Patient reports she is doing well and has been using her shoe inserts and found slight relief in regards to her cramps however she is still experiencing pain. She is interested in recommendations for bunion sleeve that does not slip off. Allergies No Known Allergies Allergy (Verified 08/01/25 09:30) HPI Comments Details: The patient is a 54 year old individual presenting for follow-up regarding foot pain secondary to bunions bilaterally. The patient reports using inserts more methodically and experiences mild to moderate pain. The patient is active, hiking a minimum of 6 to 8 miles weekly, and is concerned about the condition worsening and affecting future mobility. She denies any new pedal injuries. She denies any other pedal concerns. 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 All systems reviewed & are unremarkable except as noted in HPI and below Physical Exam Vital Signs: BMI result Body Mass Index 22.8 Extrem Other: Bilateral lower extremity focused physical exam: Derm: No open lesions abrasions or wounds noted. No clinical signs of infection. No ecchymosis or discoloration noted. No hyperkeratotic lesions or areas noted. No interdigital maceration noted. Toenails within normal limits. Vascular: DP/PT pulses palpable. Capillary refill time less than 3 seconds. Temperature gradient warm to warm. Pedal hair absent. No varicosities noted. No edema noted. Neuro: Protective sensation is grossly intact. MSK: Palpable bony prominences of the 1st metatarsals bilaterally, consistent with bunions. Pain on palpation to medial prominences of the 1st metatarsal heads bilaterally, worse to the left foot, extending towards the shaft of the 1st metatarsals. Tracking HAV noted bilaterally, worse on left. Crepitus noted with left 1st MPJ range of motion. Range of motion of remaining forefoot within normal limits. Range of motion of hindfoot and ankles within normal limits. Mildly antalgic gait noted unassisted. Results Reviewed Results Reviewed: Podiatry read of Bilateral foot x-rays (07/18/2025): Hallux valgus noted bilaterally with a 1st IM angle of approximately 15 degrees on the left and 1st IM angle of approximately 13 degrees on the right. Mild hammertoe deformities noted. Pes planus noted. Bilateral foot x-rays (07/18/2025): FINDINGS: Loss of the plantar arch, bilaterally. No acute cortical disruption or malalignment. Hallux valgus deformities, first metatarsophalangeal joint more pronounced on the left foot No plantar calcaneus spur. No gross joint effusion. No lytic or blastic lesions. No bony erosions. No subcutaneous emphysema.. IMPRESSION: Pes planus, bilaterally. Hallux valgus deformities, left greater than the right foot. Assessment & Plan Assessment & Plan (1) Bilateral foot pain: Code(s): M79.671 - Pain in right foot; M79.672 - Pain in left foot Category: Medical (2) Hallux abducto valgus, bilateral: Code(s): M20.11 - Hallux valgus (acquired), right foot; M20.12 - Hallux valgus (acquired), left foot Category: Medical (3) Pes planus of both feet: Code(s): M21.41 - Flat foot [pes planus] (acquired), right foot; M21.42 - Flat foot [pes planus] (acquired), left foot Category: Medical (4) Hammertoes of both feet: Code(s): M20.41 - Other hammer toe(s) (acquired), right foot; M20.42 - Other hammer toe(s) (acquired), left foot Category: Medical Plan Patient was informed and verbally consented to the use of an ambient scribe for clinic note documentation during this visit. I reviewed the patient's foot X-rays, which showed a moderate bunion on the left foot (15-degree angle) and a mild bunion on the right (13-degree angle). I explained that these angles are considered mild to moderate and there are several treatment options. We discussed a stepwise treatment plan starting with conservative management. I recommended the use of bunion sleeves for cushioning and pain relief, clarifying that this would not correct the deformity but would help with symptoms. If pain persists or worsens, the next step would be a cortisone injection. If conservative measures fail, surgery would be considered. I detailed the surgical procedure appropriate for the patient's condition. The patient expressed a desire to fix the issue to maintain an active lifestyle. We agreed to proceed with conservative treatment initially and a follow-up appointment in two months to re-evaluate. - Recommend conservative treatment with bunion sleeves for both feet to provide cushioning and pain relief. - Continue using shoe inserts consistently. - If pain increases or persists, a cortisone injection into the first metatarsophalangeal joint will be considered. - The patient will return for a follow-up appointment in 2 months to reassess symptoms. - Continue conservative management with appropriate footwear and toe socks to alleviate symptoms. - Continue taking jvfa-aqd-oslilsu ibuprofen and/or Tylenol for pain relief. - Consider surgical intervention for the bunion if conservative measures fail to provide relief and symptoms impede daily activities. - Avoid barefoot walking and wear supportive shoe gear with a wide toe box. RTC in 2 months. Coding Level of Care Code Est Pt Level 4 (51013) Diagnoses Bilateral foot pain M79.671; M79.672 Hallux abducto valgus, bilateral M20.11; M20.12 Pes planus of both feet M21.41; M21.42 Hammertoes of both feet M20.41; M20.42 Time Spent (min) 30
--- OUTSIDE RECORDS SUMMARY | 2025-08-01 10:06 | XMS_ITS | Encounter Summary ---
Author Organization [facility] Address [address] [place] [address] Phone Care Team Providers Care Amortization Schedule Clerk Name Role Phone Rogelio Niño MD Primary Care Provider + Sebastián Parra MD Unavailable [phone] Leah Doyle MD Unavailable Yobany Castro MD Primary Care Pr ovider Vanessa Carvajal MANAGER LEAN Unavailable [phone] Encounter Details Date Type Department Care Team (Late st Contact Info) Description 09/03/2020 Procedure Pass MRI, [facility] - [address], [address] [place] [address] Social History Tobacco Use Types [...] on filedocumented in this encounter Care Teams Amortization Schedule Clerk Relationship Specialty Start Date End Date Rogelio Niño MD [address] [place] [address] [email or web address] PCP - General Internal Medicine 06/10/18 09/04/24 Yobany Castro MD [address] [place], [place] [address] [address] PCP - General Family Medicine 09/05/24 Sebastián Parra MD [address] [place] [address] [address] [place] [address] [email or web address] Neurosurgery 11/19/19 Leah Doyle MD [address] [place], [place] [address] [address] [email or web address] Radiation Oncology 11/19/19 Vanessa Carvajal FNP [address] [place] [address] [email or web address] Nurse Practitioner Nurse Practitioner 12/08/24 documented as of this encounter Additional Source Comments The information contained in this document represents components of the legal health record. It is not the complete legal health record.[facility]
--- OUTSIDE RECORDS SUMMARY | 2025-08-01 10:06 | XMS_ITS | Encounter Summary ---
Author Organization [facility] Address [address] [place] [address] Phone Care Team Providers Care Steeping Press Tender Name Role Phone Rogelio Niño MD Primary Care Provider + Sebastián Parra MD Unavailable [phone] Leah Doyle MD Unavailable Yobany Castro MD Primary Care Pr ovider Vanessa Carvajal PELLET POST INSPECTOR Unavailable [phone] Encounter Details Date Type Department Care Team (Late st Contact Info) Description 03/05/2020 Procedure Pass MRI, [facility] - [address], [address] [place] [address] Social History Tobacco Use Types [...] on filedocumented in this encounter Care Teams Steeping Press Tender Relationship Specialty Start Date End Date Rogelio Niño MD [address] [place] [address] [email or web address] PCP - General Internal Medicine 06/10/18 09/04/24 Yobany Castro MD [address] [place], [place] [phone] [address] PCP - General Family Medicine 09/05/24 Sebastián Parra MD [address] [place] [address] [address] [place] [address] [email or web address] Neurosurgery 11/19/19 Leah Doyle MD [address] [place], [place] [address] [address] [address] [email or web address] Radiation Oncology 11/19/19 Vanessa Carvajal FNP [address] [place] [address] [email or web address] Nurse Practitioner Nurse Practitioner 12/08/24 documented as of this encounter Additional Source Comments The information contained in this document represents components of the legal health record. It is not the complete legal health record.[facility]
--- OUTSIDE RECORDS SUMMARY | 2025-08-01 10:06 | XMS_ITS | Encounter Summary ---
Author Organization [facility] Address [address] [place] [address] Phone Care Team Providers Care Medical Records Administrator Name Role Phone Rogelio Niño MD Primary Care Provider + Sebastián Parra MD Unavailable [phone] Leah Doyle MD Unavailable Yobany Castro MD Primary Care Pr ovider Vanessa Carvajal INSPECTOR BRAKE LINING Unavailable [phone] Encounter Details Date Type Department Care Team (Late st Contact Info) Description 06/08/2019 Procedure Pass MRI, [facility] - [address] [place] [address] Social History Tobacco Use Types [...] on filedocumented in this encounter Care Teams Medical Records Administrator Relationship Specialty Start Date End Date Rogelio Niño MD [address] [place] [address] [email or web address] PCP - General Internal Medicine 06/10/18 09/04/24 Yobany Castro MD [address] [place] [address] PCP - General Family Medicine 09/05/24 Sebastián Parra MD [address] [place] [address] [address] [place] [address] [email or web address] Neurosurgery 11/19/19 Leah Doyle MD [address] [place] [address] [email or web address] Radiation Oncology 11/19/19 Vanessa Carvajal FNP [address] [place] [address] [email or web address] Nurse Practitioner Nurse Practitioner 12/08/24 documented as of this encounter Additional Source Comments The information contained in this document represents components of the legal health record. It is not the complete legal health record.[facility]
--- OUTSIDE RECORDS SUMMARY | 2025-08-01 10:06 | XMS_ITS | Encounter Summary ---
Author Organization [facility] Address [address] [place] [address] Phone Care Team Providers Care Doubler Helper Name Role Phone Rogelio Niño MD Primary Care Provider + Rogelio Niño MD Primary Care Provider + Sebastián Parra MD Unavailable [phone] Leah Doyle MD Unavailable Yobany Castro MD Primary Care Pr ovider Vanessa Carvajal HARM REDUCTION WORKER Unavailable [phone] Encounter Details Date Type Department Care Team (Late st Contact Info) Description 06/07/2018 Procedure Pass [facility] [address] [place] [phone] Social History Tobacco Use Types Packs/Day Years [...] on filedocumented in this encounter Care Teams Doubler Helper Relationship Specialty Start Date End Date Rogelio Niño MD [address] [place] [address] [email or web address] PCP - General Internal Medicine 11/16/17 Rogelio Niño MD [address] [place] [address] [email or web address] PCP - General Internal Medicine 06/10/18 09/04/24 Yobany Castro MD [address] [place], [place] [address] [place] [address] [address] PCP - General Family Medicine 09/05/24 Sebastián Parra MD [address] [place] [address] [address] [place] [address] [email or web address] Neurosurgery 11/19/19 Leah Doyle MD [address] [place], [place] [address] [place] [address] [address] [email or web address] Radiation Oncology 11/19/19 Vanessa Carvajal FNP [address] [place] [address] [email or web address] Nurse Practitioner Nurse Practitioner 12/08/24 documented as of this encounter Additional Source Comments The information contained in this document represents components of the legal health record. It is not the complete legal health record.[facility]
--- OUTSIDE RECORDS SUMMARY | 2025-08-01 10:06 | XMS_ITS | Encounter Summary ---
Author Organization [facility] Address [address] [place] [address] Phone Care Team Providers Care Stock Receiver Name Role Phone Rogelio Niño MD Primary Care Provider + Sebastián Parra MD Unavailable [phone] Leah Doyle MD Unavailable Yobany Castro MD Primary Care Pr ovider Vanessa Carvajal LEARNING SUPPORT SPECIALIST Unavailable [phone] Encounter Details Date Type Department Care Team (Late st Contact Info) Description 11/21/2019 Procedure Pass MRI, [facility] - [address], [address] [place] [address] Social History Tobacco Use Types [...] on filedocumented in this encounter Care Teams Stock Receiver Relationship Specialty Start Date End Date Rogelio Niño MD [address] [place] [address] [email or web address] PCP - General Internal Medicine 06/10/18 09/04/24 Yobany Castro MD [address] [place], [place] [address] [address] PCP - General Family Medicine 09/05/24 Sebastián Parra MD [address] [place] [address] [address] [place] [address] [email or web address] Neurosurgery 11/19/19 Leah Doyle MD [address] [place], [place] [address] [address] [email or web address] Radiation Oncology 11/19/19 Vanessa Carvajal FNP [address] [place] [address] [email or web address] Nurse Practitioner Nurse Practitioner 12/08/24 documented as of this encounter Additional Source Comments The information contained in this document represents components of the legal health record. It is not the complete legal health record.[facility]
--- OUTSIDE RECORDS SUMMARY | 2025-08-01 10:06 | XMS_ITS | Encounter Summary ---
Author Organization [facility] Address [address] [place] [address] Phone Care Team Providers Care Shaft Headman Name Role Phone Rogelio Niño MD Primary Care Provider + Sebastián Parra MD Unavailable [phone] Leah Doyle MD Unavailable Yobany Castro MD Primary Care Pr ovider Vanessa Carvajal VP GENETIC Unavailable [phone] Encounter Details Date Type Department Care Team (Late st Contact Info) Description 10/24/2019 Procedure Pass MRI, [facility] - [address] [place] [address] Social History Tobacco Use Types [...] on filedocumented in this encounter Care Teams Shaft Headman Relationship Specialty Start Date End Date Rogelio Niño MD [address] [place] [address] [email or web address] PCP - General Internal Medicine 06/10/18 09/04/24 Yobany Castro MD [address] [place], [place] [address] [address] PCP - General Family Medicine 09/05/24 Sebastián Parra MD [address] [place] [address] [address] [place] [address] [email or web address]@[email or web address] Neurosurgery 11/19/19 Leah Doyle MD [address] [place], [place] [address] [address] [address] [facility] Radiation Oncology 11/19/19 Vanessa Carvajal FNP [address] [place] [address] [email or web address] Nurse Practitioner Nurse Practitioner 12/08/24 documented as of this encounter Additional Source Comments The information contained in this document represents components of the legal health record. It is not the complete legal health record.[facility]
--- OUTSIDE RECORDS SUMMARY | 2025-08-01 10:06 | XMS_ITS | Encounter Summary ---
Author Organization [facility] Address [address] [place] [address] Phone Care Team Providers Care Pantograph I Engraver Name Role Phone Rogelio Niño MD Primary Care Provider + Sebastián Parra MD Unavailable [phone] Leah Doyle MD Unavailable Yobany Castro MD Primary Care Pr ovider Vanessa Carvajal MOLD CHIPPER Unavailable [phone] Encounter Details Date Type Department Care Team (Late st Contact Info) Description 12/31/2021 Procedure Pass MRI, [facility] - [address], [address] [place] [address] Social History Tobacco Use Types [...] on filedocumented in this encounter Care Teams Pantograph I Engraver Relationship Specialty Start Date End Date Rogelio Niño MD [address] [place] [address] [email or web address] PCP - General Internal Medicine 06/10/18 09/04/24 Yobany Castro MD [address] [place], [place] [address] [address] PCP - General Family Medicine 09/05/24 Sebastián Parra MD [address] [place] [address] [address] [place] [address] [email or web address] Neurosurgery 11/19/19 Leah Doyle MD [address] [place], [place] [address] [address] [email or web address] Radiation Oncology 11/19/19 Vanessa Carvajal FNP [address] [place] [address] [email or web address] Nurse Practitioner Nurse Practitioner 12/08/24 documented as of this encounter Additional Source Comments The information contained in this document represents components of the legal health record. It is not the complete legal health record.[facility]
--- OUTSIDE RECORDS SUMMARY | 2025-08-01 10:06 | XMS_ITS | Encounter Summary ---
Author Organization [facility] Address [address] [place] [address] Phone Care Team Providers Care Linux System Administrator Name Role Phone Rogelio Niño MD Primary Care Provider + Rogelio Niño MD Primary Care Provider + Sebastián Parra MD Unavailable [phone] Leah Doyle MD Unavailable Yobany Castro MD Primary Care Pr ovider Vanessa Carvajal CHANNEL LIP STIFFENER INSOLES Unavailable [phone] Encounter Details Date Type Department Care Team (Late st Contact Info) Description 2017 Procedure Pass [facility] [address] [place] [address] Social History Tobacco Use Types Packs/Day Years [...] on filedocumented in this encounter Care Teams Linux System Administrator Relationship Specialty Start Date End Date Rogelio Niño MD [address] [place] [address] [email or web address] PCP - General Internal Medicine 11/16/17 Rogelio Niño MD [address] [place] [address] [email or web address] PCP - General Internal Medicine 06/10/18 09/04/24 Yobany Castro MD [address] [place] [address] PCP - General Family Medicine 09/05/24 Sebastián Parra MD [address] [place] [address] [address] [place] [address] [email or web address] Neurosurgery 11/19/19 Leah Doyle MD [address] [place], [place] [address] [address] [email or web address] Radiation Oncology 11/19/19 Vanessa Carvajal FNP [address] [place] [address] [email or web address] Nurse Practitioner Nurse Practitioner 12/08/24 documented as of this encounter Additional Source Comments The information contained in this document represents components of the legal health record. It is not the complete legal health record.[facility]
--- OUTSIDE RECORDS SUMMARY | 2025-08-01 10:06 | XMS_ITS | Encounter Summary ---
Author Organization [facility] Address [address] [place] [address] Phone Care Team Providers Care Preschool Adviser Name Role Phone Rogelio Niño MD Primary Care Provider + Sebastián Parra MD Unavailable [phone] Leah Doyle MD Unavailable Yobany Castro MD Primary Care Pr ovider Vanessa Carvajal LATH HAND Unavailable [phone] Encounter Details Date Type Department Care Team (Late st Contact Info) Description 10/10/2019 Procedure Pass [facility] [address] [place] [phone] Social History Tobacco Use Types Packs/Day Years [...] on filedocumented in this encounter Care Teams Preschool Adviser Relationship Specialty Start Date End Date Rogelio Niño MD [address] [place] [address] [email or web address] PCP - General Internal Medicine 06/10/18 09/04/24 Yobany Castro MD [address] [place], [place] [address] [address] PCP - General Family Medicine 09/05/24 Sebastián Parra MD [address] [place] [address] [address] [place] [address] [email or web address] Neurosurgery 11/19/19 Leah Doyle MD [address] [place], [place] [address] [address] [email or web address] Radiation Oncology 11/19/19 Vanessa Carvajal FNP [address] [place] [address] [email or web address] Nurse Practitioner Nurse Practitioner 12/08/24 documented as of this encounter Additional Source Comments The information contained in this document represents components of the legal health record. It is not the complete legal health record.[facility]
--- OUTSIDE RECORDS SUMMARY | 2025-08-01 10:06 | XMS_ITS | Encounter Summary ---
Author Organization [facility] Address [address] [place] [address] Phone Care Team Providers Care Pilot Boat Captain Name Role Phone Rogelio Niño MD Primary Care Provider + Sebastián Parra MD Unavailable [phone] Leah Doyle MD Unavailable Yobany Castro MD Primary Care Pr ovider Vanessa Carvajal ANGIOGRAPHY TECHNOLOGIST Unavailable [phone] Encounter Details Date Type Department Care Team (Late st Contact Info) Description 07/05/2024 Procedure Pass MRI, [facility] - [address], [address] [place] [address] Social History Tobacco Use Types [...] on filedocumented in this encounter Care Teams Pilot Boat Captain Relationship Specialty Start Date End Date Rogelio Niño MD [address] [place] [address] [email or web address] PCP - General Internal Medicine 06/10/18 09/04/24 Yobany Castro MD [address] [place] [address] PCP - General Family Medicine 09/05/24 Sebastián Parra MD [address] [place] [address] [address] [place] [address] [email or web address] Neurosurgery 11/19/19 Leah Doyle MD [address] [place], [place] [address] [address] [email or web address] Radiation Oncology 11/19/19 Vanessa Carvajal FNP [address] [place] [address] [email or web address] Nurse Practitioner Nurse Practitioner 12/08/24 documented as of this encounter Additional Source Comments The information contained in this document represents components of the legal health record. It is not the complete legal health record.[facility]
--- OUTSIDE RECORDS SUMMARY | 2025-08-01 10:06 | XMS_ITS | Clinical Summary ---
Author Organization [facility] [address] [place] [address] Address [address] [place] [address] Phone Care Team Providers Care Grinder Set Up Operator Jig Name Role Phone Yobany Castro MD Primary Care Pr ovider Allergies No known active allergies Medications estrogens, conjugated (PREMARIN VAGL) Place vaginally. 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 If she desires to come here, [...] coconut oil, soak and seal and follow [facility] guidelines, as well as treat for possible cutaneous candidiasis, and return for vulvar biopsy in 2 weeks. Resolved Problems Problem Noted Date Diagnosed Date Resolved Date Meningioma ([facility] V24, [facility] V28) 11/16/2024 11/16/2024 Encounters Date Type Department Care Team Description 06/22/2025 Results Follow-Up [facility]ne[facility] - [address] [place] [phone] Britt Romeo RN 06/18/2025 8:45 AM EDT Procedure visit Obstetrics and Gynecology - [address] [place] [phone] Marcelina Booth, ASCUS with positive high risk [...] for your loved ones. For example, child care leader or elderly care for an older adult? [...] 8:00 AM EDT Office Visit Adult Medicine [address] [phone] Yobany Castro MD [address] [place] [address] Health Maintenance Due Date Last Done Comments Colorectal Cancer Screening: Colonoscopy 1972 DTaP,Tdap,and Td Vaccines (1 - Tdap) 11/24/1991 Cervical Cancer Screening: Pap Smear 1993 Pneumococcal Vaccine: 50+ Years (1 of 1 - PCV) 2022 Hepatitis B Vaccines (2 of 2 - CpG 2-dose series) 03/07/2024 02/08/2024 HIV Screening 06/06/2024 COVID-19 Vaccine ( - season) 2025 02/08/2024, 08/21/2021, 01/14/2021, Additional [...] ASCUS with positive high risk HPV cervical CT COLPOSCOPY CERVIX INCL UPPER/ADJACENT VAGINA W ENDOCERV [...] squamous intraepithelial lesion 06/21/2025 1:36 PM EDT [facility] at 1336 EDT Clinical Information ASCUS with positive high risk HPV cervical (R87.610, R87.810) 06/21/2025 1:36 PM EDT [facility] Gross Description A. Endocervix, cirettings: Labeled endocervix . Received in formalin, on a brush, is a scant aggregate of clear mucoid material, which is wrapped in paper and submitted in toto in one cassette, multiple pieces, multiple levels (which might fail processing). TS 06/21/2025 1:36 PM EDT [facility] Disclaimer Unless otherwise specified, all tissue is 10% NB formalin fixed and paraffin embedded. 06/21/2025 1:36 PM T [facility] Tissue Endocervical structure / Unknown Non-blood Collection / Unknown 06/19/2025 8:09 AM EDT 06/19/2025 8:09 AM EDT Marcelina Booth DO LAB PATHOLOGY ORDERABLES Anaya l Result [facility] [address] [place] [address], [place] [phone] * CT COLPOSCOPY CERVIX INCL UPPER/ADJACENT VAGINA W ENDOCERV [...] draped in the dorsal lithotomy position: yes Calhoun speculum was placed in the vagina: yes [...] Hepatitis C antibody (11/28/2024 10:41 AM EDT) [facility] Hepatitis C Antibody Negative Negative LAB CHEMISTRY METHOD 11/28/2024 6:07 PM EDT [facility] Blood Venous blood specimen / Unknown Venipuncture / Unknown 11/28/2024 10:41 AM EDT 11/28/2024 10:41 AM EDT Samia BEAN LAB BLOOD ORDERABLES Final Re sult [facility] [address] [place] [address], [place] [phone] * Lipid panel with reflex to direct LDL (11/28/2024 10:41 AM EDT) [facility] Cholesterol 181 0 - 200 mg/dL LAB CHEMISTRY METHOD 11/28/2024 4:49 PM EDT [facility] Triglycerides 40 0 - 150 mg/dL LAB CHEMISTRY METHOD 11/28/2024 4:49 PM EDT [facility] HDL 94 >=40 mg/dL LAB CHEMISTRY METHOD 11/28/2024 4:49 PM EDT [facility] LDL Calculated 79 0 - 100 mg/dL LAB CHEMISTRY METHOD 11/28/2024 4:49 PM EDT [facility] VLDL Cholesterol Pete 8 mg/dL LAB CHEMISTRY METHOD 11/28/2024 4:49 PM EDT [facility] Non HDL Chol. (LDL+VLDL) 87 <145 mg/dL LAB CHEMISTRY METHOD [facility] Chol/HDL Ratio 1.9 0.0 - 4.4 LAB CHEMISTRY METHOD 11/28/2024 4:49 PM EDT [facility] Blood Venous blood specimen / Unknown Venipuncture / Unknown 11/28/2024 10:41 AM EDT 11/28/2024 10:41 AM EDT us Samia BEAN LAB BLOOD ORDERABLES Final Re sult [facility] ([facility]) [facility] [address] [place] [address], * MG Mammo Digital Screening w Howard bilat (2024 9:39 AM EDT) Anatomical Region Laterality Modality Breast Bilateral Mammography 11/24/2024 8:30 AM EDT Impressions 11/24/2024 8:34 AM EDT No mammographic evidence of malignancy. A negative mammogram in the presence of a clinically suspicious palpable abnormality does not preclude the possibility of malignancy or alter the indications for biopsy. PQRI CPT II 3342F Code 57827, 09387 PQRI 225 CPT II 7025F TISSUE DENSITY: The breasts are heterogeneously dense, which may obscure small masses. (BI-RADS category C) IMPRESSION: Benign. BI-RADS CATEGORY: 2 - BENIGN RECOMMENDATION: Screening bilateral mammogram is recommended in 1 year. Mammo Location: [facility], [address] [place] [address] -------- FINAL REPORT -------- Dictated By: Martínez Waterman Dictated Date: 11/24/2024 08:30 ET Assigned Physician: Martínez Waterman Reviewed and Electronically Signed By: Martínez Waterman Signed Date: 11/24/2024 08:34 ET Workstation ID: [id number] Transcribed By: Self Edit Transcribed Date: 11/24/2024 [...] MLO and CC projection is performed in theGopeersographe 2000-D unit. Computer aided detection utilizing the [...] for biopsy. PQRI CPT II 3342F Code 16662, 81494 PQRI 225 CPT II 7025F TISSUE DENSITY: The breasts are heterogeneously dense, which may obscuresmall masses. (BI-RADS category C) IMPRESSION: Benign. BI-RADS CATEGORY: 2 - BENIGN RECOMMENDATION: Screening bilateral mammogram is recommended in 1 year. Mammo Location: [facility], [address] [place] [address] -------- FINAL REPORT -------- Dictated By: Martínez Waterman Dictated Date: 11/24/2024 08:30 ET Assigned Physician: Martínez Waterman Reviewed and Electronically Signed By: Martínez Waterman Signed Date: 11/24/2024 08:34 ET Workstation ID: [id number] Transcribed By: Self Edit Transcribed Date: 11/24/2024 08:30 ET Samia BEAN IMG BI PROCEDURES Final Resul t from Last 3 Months or Most Recently Relevant to Health Maintenance Insurance [facility] [employer] Care Teams Grinder Set Up Operator Jig Relationship Specialty Start Date End Date Yobany Castro MD [address] [place] [phone] PCP - General Internal Medicine 11/16/24
--- OUTSIDE RECORDS SUMMARY | 2025-08-01 10:06 | XMS_ITS | Encounter Summary ---
Author Organization [facility] Address [address] [place] [address] Care Team Providers Care Senior Safety Support Manager Name Role Phone Yobany Castro MD Primary Care Pr ovider Encounter Details Date Type Department Care Team (Late st Contact Info) Description 06/22/2025 Results Follow-Up Obstetrics and Gynecology - [address] [place] [phone] Britt Romeo RN Social History Tobacco Use [...] Record ed Within the last 3 months, tatum w many times did you visit the [...] your loved ones. For example, child care center administrator or elderly care for an older adult? [...] PM EDT documented as of this encounter Progress Notes * Britt Romeo RN - 07/11/2025 1:41 PM EST Images from the original note were not included. can you advise re: pt results and follow up recommendations. Had colpo with ECC (no biopsy). Dottie Gonzales [facility]orting Marcelina Booth DO)24 minutes ago (1:16 PM) Hi! I just wanted to follow up on the procedure I had on June 18. I see the reports in my chart, but I cannot decipher what the information means. I also received a call from Sarita Marrero checking in on me, as she too could not fully understand the report. Do I need to schedule a follow up? Please advise when you have a moment. Much appreciated! Dottie Enciso [phone] documented in this encounter Plan of Treatment Upcoming Encounters Date Type Department Care Team (Late st Contact Info) Description 2025 8:00 AM EDT Office Visit Adult Medicine [address] [phone] Yobany Castro MD [address] [place] [address] documented as of this encounter Visit Diagnoses Diagnosis ASCUS with positive high risk HPV cervical- Primary documented in this encounter Additional Health Concerns Assessment Noted Time PHQ-9 Depression Total Score: 0 06/11/20 10:28 AM EDT documented as of this encounter Care Teams Senior Safety Support Manager Relationship Specialty Start Date End Date Yobnay Castro MD [address] [place] [address] PCP - General Internal Medicine 11/16/24 documented as of this encounter
--- OUTSIDE RECORDS SUMMARY | 2025-08-01 10:06 | XMS_ITS | Encounter Summary ---
Author Organization [facility] Address [address] [place] [address] Phone Care Team Providers Care Brick Tender Name Role Phone Rogelio Niño MD Primary Care Provider + Sebastián Parra MD Unavailable [phone] Leah Doyle MD Unavailable Yobany Castro MD Primary Care Pr ovider Vanessa Carvajal CIVIL ENGINEERING INTERN Unavailable [phone] Encounter Details Date Type Department Care Team (Late st Contact Info) Description 07/06/2018 Procedure Pass [facility] [address] [place] [address] Social History Tobacco Use Types Packs/Day Years [...] on filedocumented in this encounter Care Teams Brick Tender Relationship Specialty Start Date End Date Rogelio Niño MD [address] [place] [phone] [email or web address] PCP - General Internal Medicine 06/10/18 09/04/24 Yobany Castro MD [address] [place], [place] [address] [address] PCP - General Family Medicine 09/05/24 Sebastián Parra MD [address] [place] [address] [address] [place] [address] [email or web address] Neurosurgery 11/19/19 Leah Doyle MD [address] [place] [address] [facility] Radiation Oncology 11/19/19 Vanessa Carvajal FNP [address] [place] [address] [email or web address] Nurse Practitioner Nurse Practitioner 12/08/24 documented as of this encounter Additional Source Comments The information contained in this document represents components of the legal health record. It is not the complete legal health record.[facility]
--- OUTSIDE RECORDS SUMMARY | 2025-08-01 10:06 | XMS_ITS | Encounter Summary ---
Author Organization [facility] Address [address] [place] [address] Phone Care Team Providers Care Care Coordinator Name Role Phone Rogelio Niño MD Primary Care Provider + Sebastián Parra MD Unavailable [phone] Leah Doyle MD Unavailable Yobany Castro MD Primary Care Pr ovider Vanessa Carvajal BUSINESS DEVELOPMENT SALES EXECUTIVE Unavailable [phone] Encounter Details Date Type Department Care Team (Late st Contact Info) Description 06/06/2019 Procedure Pass [facility] [address] [place] [address] Social History Tobacco Use Types Packs/Day Years [...] on filedocumented in this encounter Care Teams Care Coordinator Relationship Specialty Start Date End Date Rogelio Niño MD [address] [place] [address] [email or web address] PCP - General Internal Medicine 06/10/18 09/04/24 Yobany Castro MD [address] [place], [place] [address] [address] PCP - General Family Medicine 09/05/24 Sebastián Parra MD [address] [place] [address] [address] [place] [address] JACKLYN@[email or web address] Neurosurgery 11/19/19 Leah Doyle MD [address] [place] [address] [facility] Radiation Oncology 11/19/19 Vanessa Carvajal FNP [address] [place] [address] [email or web address] Nurse Practitioner Nurse Practitioner 12/08/24 documented as of this encounter Additional Source Comments The information contained in this document represents components of the legal health record. It is not the complete legal health record.[facility]
--- OUTSIDE RECORDS SUMMARY | 2025-08-01 10:06 | XMS_ITS | Encounter Summary ---
Author Organization [facility] Address [address] [place] [address] Phone Care Team Providers Care Info Specialist Name Role Phone Rogelio Niño MD Primary Care Provider + Sebastián Parra MD Unavailable [phone] Leah Doyle MD Unavailable Yobany Castro MD Primary Care Pr ovider Vanessa Carvajal NURSE GENERAL DUTY Unavailable [phone] Encounter Details Date Type Department Care Team (Late st Contact Info) Description 02/17/2021 Procedure Pass MRI, [facility] - [address] [place] [address] Social History Tobacco Use Types [...] on filedocumented in this encounter Care Teams Info Specialist Relationship Specialty Start Date End Date Rogelio Niño MD [address] [place] [address] [email or web address] PCP - General Internal Medicine 06/10/18 09/04/24 Yobany Castro MD [address] [place], [place] [address] [address] PCP - General Family Medicine 09/05/24 Sebastián Parra MD [address] [place] [address] [address] [place] [address] JACKLYN@[facility] Neurosurgery 11/19/19 Leah Doyle MD [address] [place], [place] [address] [address] [email or web address] Radiation Oncology 11/19/19 Vanessa Carvajal FNP [address] [place] [address] [email or web address] Nurse Practitioner Nurse Practitioner 12/08/24 documented as of this encounter Additional Source Comments The information contained in this document represents components of the legal health record. It is not the complete legal health record.[facility]
--- OUTSIDE RECORDS SUMMARY | 2025-08-01 10:06 | XMS_ITS | Encounter Summary ---
Author Organization [facility] Address [address] [place] [address] Phone Care Team Providers Care Blueprint Maker Name Role Phone Rogelio Niño MD Primary Care Provider + Rogelio Niño MD Primary Care Provider + Sebastián Parra MD Unavailable [phone] Leah Doyle MD Unavailable Yobany Castro MD Primary Care Pr ovider Vanessa Carvajal ASSISTANT FINANCIAL ACCOUNTANT Unavailable [phone] Encounter Details Date Type Department Care Team (Late st Contact Info) Description 11/25/2017 Procedure Pass MRI, [facility] - [address], [address] [place] [id number] Social History Tobacco Use Types Packs/Day Years [...] on filedocumented in this encounter Care Teams Blueprint Maker Relationship Specialty Start Date End Date Rogelio Niño MD [address] [place] [address] [email or web address] PCP - General Internal Medicine 11/16/17 Rogelio Niño MD [address] [place] [address] [email or web address] PCP - General Internal Medicine 06/10/18 09/04/24 Yobany Castro MD [address] [place], [place] [id number] [address] PCP - General Family Medicine 09/05/24 Sebastián Parra MD [address] [facility] [address] [place] [address] [email or web address] Neurosurgery 11/19/19 Leah Doyle MD [address] [place], [place] [address] [place] [address] [email or web address] Radiation Oncology 11/19/19 Vanessa Carvajal FNP [address] [place] [address] [email or web address] Nurse Practitioner Nurse Practitioner 12/08/24 documented as of this encounter Additional Source Comments The information contained in this document represents components of the legal health record. It is not the complete legal health record.[facility]
--- OUTSIDE RECORDS SUMMARY | 2025-08-01 10:06 | XMS_ITS | Clinical Summary ---
Author Organization [facility] Address [address] [place] [address] Phone Care Team Providers Care Dairy Tester Name Role Phone Sebastián Parra MD Unavailable [phone] Leah Doyle MD Unavailable Yobany Castro MD Primary Care Pr ovider Vanessa Carvajal PHP WORDPRESS DEVELOPER Unavailable [phone] Allergies Active Allergy Reactions Criticality Noted Date [...] this topic Medical Devices Implanted Type Area Insulation Installer Device Identifier Shelf Expiration Date Model / Serial / Lot Nodata NODATA Nose Description:Consented on 09/30 10/20 nose piercing [id number] Screw Bone 1.5x4mm Ti Self Drilling Matrixneuro Pk/5ea - [id number] Implanted:Qty: 13 on 10/10/2019 by Sebastián Parra MD at [facility] NODATA Right: Cranial SYNTHES 04.503.1 04.05 / / Mirena Iud Uterus Matrix Dura 3x3in On[place] Plus - [id number] Implanted:Qty: 1 on 10/10/2019 by Sebastián Parra MD at [facility] Right: Cranial ÓSCAR CRANIOMAXILLOFACIAL DI 06/29/2022 [id number] / / [id number] Plate .3x12mm 2 Hole Cranial Matrixneuro Titanium Straight [place] Space Ultra Low Profile Thick - [id number] Implanted:Qty: 1 on 10/10/2019 by Sebastián Parra MD at [facility] Right: Cranial SYNTHES 04.502.0 62 / / Cover [place] 17mm Hole Cranial Matrixneuro Titanium Ultra Low Profile - [id number] Implanted:Qty: 3 on 10/10/2019 by Sebastián Parra MD at [facility] Right: Cranial SYNTHES 04.502.0 23 / / Insurance [facility] PCP ESTRELLA POP [facility] [place] NON NSPG PCP SILVER CLARITY [facility] NON NSPG PCP [place] [facility] NON NSPG PCP S[place] [facility] [place] NON NSPG PCP [facility] [place] NON NSPG PCP [facility] CONNE[facility]ARE Advance Directives For more information, please contact: [phone] (9AM - 5PM Leonie/[facility], Wednesday-Wednesday) * Full Code (Presumed) (Latest Code Status on File) Date Activated Date Inactivated Comments 10/10/2019 11:40 AM 10/12/2019 4:08 PM Care Teams Dairy Tester Relationship Specialty Start Date End Date Yobany Castro MD [address] [place], [place] [phone] [address] PCP - General Family Medicine 09/05/24 Sebastián Parra MD [address] [place] [address] [address] [place] [address] [email or web address] Neurosurgery 11/19/19 Leah Doyle MD [address] [place], [place] [address] [address] [email or web address] Radiation Oncology 11/19/19 Vanessa Carvajal FNP [address] [place] [address] [email or web address] Nurse Practitioner Nurse Practitioner 12/08/24 Additional Source Comments The information contained in this document represents components of the legal health record. It is not the complete legal health record.[facility]
--- OUTSIDE RECORDS SUMMARY | 2025-08-01 10:06 | XMS_ITS | Encounter Summary ---
Author Organization [facility] Address [address] [place] [address] Phone Care Team Providers Care Donor Center Technician Name Role Phone Rogelio Niño MD Primary Care Provider + Sebastián Parra MD Unavailable [phone] Leah Doyle MD Unavailable Yobany Castro MD Primary Care Pr ovider Vanessa Carvajal HEALTHCARE ADMINISTRATIVE ASSISTANT Unavailable [phone] Encounter Details Date Type Department Care Team (Late st Contact Info) Description 01/03/2019 Procedure [facility] [address] [place] [address] Social History Tobacco Use Types Packs/Day Years [...] on filedocumented in this encounter Care Teams Donor Center Technician Relationship Specialty Start Date End Date Rogelio Niño MD [address] [place] [address] [email or web address] PCP - General Internal Medicine 06/10/18 09/04/24 Yobany Castro MD [address] [place], [place] [phone] [address] PCP - General Family Medicine 09/05/24 Sebastián Parra MD [address] [place] [address] [address] [place] [address] [email or web address] Neurosurgery 11/19/19 Leah Doyle MD [address] [place] [address] [email or web address] Radiation Oncology 11/19/19 Vanessa Carvajal FNP [address] [place] [address] [email or web address] Nurse Practitioner Nurse Practitioner 12/08/24 documented as of this encounter Additional Source Comments The information contained in this document represents components of the legal health record. It is not the complete legal health record.[facility]
== END 2025-08-01 09:41 | disposition home or self-care (01) ==
LOC: HO.HPODS 09:19
PROVIDERS: PCP Family Medicine; Visit Provider Student in an Organized Health Care Education/Training Program
DX: M79.671 Pain in right foot (principal); M79.672 Pain in left foot; M20.11 Hallux valgus (acquired), right foot; M20.12 Hallux valgus (acquired), left foot; M21.41 Flat foot [pes planus] (acquired), right foot; M21.42 Flat foot [pes planus] (acquired), left foot; M20.41 Other hammer toe(s) (acquired), right foot; M20.42 Other hammer toe(s) (acquired), left foot
CPT/HCPCS: 99214

== ENCOUNTER 2025-08-01 13:22 | Outpatient (REF) | payer OTHER, SELFPAY ==
--- NOTE | 2025-08-01 | EMG_ITS ---
PROCEDURE PERFORMED: Botulinum toxin chemodenervation DIAGNOSIS: Myofascial pain ICD10: M79.18 myofascial pain INDICATION: Neck pain PROCEDURE: The procedure was explained to the patient/caregiver, and informed consent was obtained. The patient sat on bed. Area cleansed with Betadine. Needling performed with gauge 27 needle, subsequently injecting 1 ml of 2% Lidocaine on each site, total of 7 mL. Muscle ml per trigger point Number of trigger points Total ml Left Upper trapezius 1 4 4 Left Rhomboids 0.5 1 0.5 Left splenius 0.5 1 0.5 Right upper trapezius 1 1 1 EMG-guidance was used during the injection. Patient tolerated procedure well. Post-injection instructions given. CODING: CPT code: 32560 trigger point injections >3 Guidance code: 35195 EMG guidance for chemodenervation J code: J2003 2% Lidocaine [facility] code: [id number] Lot #: [id number] Expiration date: 05/29/2026 [facility]
--- OUTSIDE RECORDS SUMMARY | 2025-08-01 15:54 | XMS_ITS | Patient Health Record ---
Author Organization [facility] Address [address] [place] [address] Care Team Providers Care Campaign Analyst Name Role Phone Rogelio Niño MD Primary Care Provider Samia Kaur Unavailable [phone] Reason For Referral No Information Medications Medication [...] Problem Acquired hammer toe of right foot (6625164823378 105) Hammer toe of right foot (M20.41) Active confirmed Problem Acquired hammer toe of left foot (6415919515344 103) Hammer toe of left foot (M20.42) Active confirmed Encounters Encounter Location Date Provider Diagnosis [facility] [address] [place] [address] 07/03/2025 Samia Garcia Plan Of Treatment No Information Medical (General) History Medical History History ICD Code Back,Hip,and Knee pain Headaches/Migraines Chicken pox Meningioma ST joint issues
--- OUTSIDE RECORDS SUMMARY | 2025-08-01 15:54 | XMS_ITS | Patient Health Record ---
Author Organization [facility] Address [address] [place] [address] Care Team Providers Care Cut Tobacco Bulker Name Role Phone Jimmy Malagon Primary Care Provider [phone] Rogelio Niño Unavailable Unavailable Reason For Referral [...] Start Date Coverage End Date BC[facility] [address] [employer] [id number] Dottie Enciso Self - patient is the insured Medical (General) History Surgical History Surgery Date(Month/Year) The patient has had no prior surgeries The patient has had no prior surgeries 2017-08-17
--- OUTSIDE RECORDS SUMMARY | 2025-08-01 15:55 | XMS_ITS | Patient Health Record ---
Author Organization [facility] Address [address] [place] [address] Care Team Providers Care Scissors Sharpener Name Role Phone SARITA MARRERO Unavailable [phone] Allergies Allergen (clinical drug ingredient) Drug/Non Drug Allergy documented on EMR Reaction Allergy Type Onset Date Status trees (uncoded) Unknown Allergy Acti ve Lanolin Unknown Drug Allergy Active Results Component Value Reference Range Flag Notes PDF Report Reviewed date:05/03/2025 08:57:20 AM Interpretation: Performing Lab:[facility], [address] [place] [address], Phone - [phone], Director - MDM[place]ore Notes/Report: No. of containers..01 ThinPrep Vial Clinical Information:[id number] IGP, Apt HPV,rfx 16/18,45-19 9344 Reviewed date:05/04/2025 08:26:06 AM Interpretation:ASCUS/HPV positive Performing Lab:[facility], [address] [place] [address], Phone - [phone], Director - MDM[place] Notes/Report: Clinical Information:[id number] No. of containers..01 ThinPrep Vial Clinical Information:[id number] No. of containers..01 ThinPrep Vial DIAGNOSIS: A EPITHELIAL CELL ABNORMALITY. ATYPICAL SQUAMOUS CELLS OF UNDETERMINED SIGNIFICANCE (ASC-US). Specimen adequacy: Satisfactory for evaluation. Endocervical and/or squamous metaplastic cells (endocervical component) are present. Clinician provided ICD10: Z01.419 Z11.51 Performed by: Tom razo, Special Education Director (ASCP) Electronically signed by: Dana Lang MD, [...] Unspecif ied Abnormal findings (R87.619) Referral Organization [facility] Referring Provider First Name SARITA Referring Provider Last Name EVA Referring Provider Speciality Nurse Prac titioner Referred Provider Specialty Hydroelectric Production Technician General Notes 54 year old AFAB per son with most recent PAP 03/2025- ASCUS/HPV positive (negative 16/18). Due for colpo as per ASCCP guidelines. Please schedule accordingly. See below for previous PAP results. Thank you, Sarita Marrero MOBILITY DEVELOPER, 02/2024- NIL/HPV positive (neg 16/18). Due for [...] Status Risk Notes Problem Atrophy of vulva (635612761) Atrophy of vulva (N90.5) Active confirmed Problem Menopausal symptom (19511743) Menopausal symptoms (N95.1) Active confirmed Vital Signs Blood pressure diastolic 60 mm Hg 04/25/2025 Height 64 in 04/25/2025 Blood pressure systolic 116 mm Hg 04/25/2025 Weight 133.2 lbs 04/25/2025 BMI 22.86 kg/m2 04/25/2025 Encounters Encounter Location Date Provider Diagnosis [facility] [address] [place], [place] [id number] 04/25/2025 SARITA GABAI Encounter for gynecological examination (general) (routine) without abnormal findings Z01.419 ; Encounter for screening for human papillomavirus (HPV) Z11.51 and Counseling, unspecified Z71.9 [facility] [address] [place], [place] [phone] 09/11/2024 SARITA GABAI [facility] [address] [place], [place] [phone] 05/02/2025 SARITA GABAI [facility] [address] [place], [place] [phone] 07/04/2025 SARITA GABAI [facility] [address] [place], [place] [phone] 04/30/2025 SARITA GABAI Assessments Encounter Date Diagnosis [...] Insured Coverage Start Date Coverage End Date [facility] [employer] [address] [address] [place], [place] [id number] Dottie Enciso Self - patient is the insured Medical (General) History Medical History History ICD Code Migraines- Occipital neuralgia VVC Meningioma incidentally diagnosed on MRI , surgery and radiation 2020 Abnormal PAP Surgical History Surgery Date(Month/Year) nerve decompression for migraines
== END 2025-08-01 13:23 | disposition home or self-care (01) ==
LOC: HO.NEURO 13:22
PROVIDERS: PCP Family Medicine; Visit Provider Physical Medicine & Rehabilitation
DX: M21.612 Bunion of left foot (principal); M21.611 Bunion of right foot; M20.11 Hallux valgus (acquired), right foot; M20.12 Hallux valgus (acquired), left foot; M21.41 Flat foot [pes planus] (acquired), right foot; M21.42 Flat foot [pes planus] (acquired), left foot; M20.41 Other hammer toe(s) (acquired), right foot; M20.42 Other hammer toe(s) (acquired), left foot; M79.18 Myalgia, other site; M54.2 Cervicalgia
CPT/HCPCS: 20553; 95874; 99212; J2003